=== PATIENT | female | born 1970 | race Caucasian/White ===

== ENCOUNTER 2019-12-02 07:17 | Emergency (ER) | payer BC ==
--- NOTE | 2019-12-02 07:42 | EDM.PDOC ---
ED HPI GENERAL MEDICAL PROBLEM - General Chief Complaint: Abdominal Pain Stated Complaint: UPPER ABD PAIN/SINCE NOON YESTERDAY Time Seen by Provider: 12/02/19 07:42 - History of Present Illness INITIAL COMMENTS - FREE TEXT/NARRATIVE: 49-year-old female presents the emergency room with abdominal pain. This pain started yesterday about midday. It is upper abdominal mostly epigastric and to a lesser degree left upper quadrant. The patient is a heavy drinker and user of alcohol she drinks a half to a full pint of vodka daily. She denies fevers or chills. She is some nausea and vomiting but cannot vomit anything up. She has a history of gastric bypass and is being treated for GERD with a PPI. Denies fevers or chills. She has undertreated depression. Upper Abdomen Pain Score (Numeric/FACES): 9 - Related Data Allergies Allergy/AdvReac Type Severity Reaction Status Date / Time acetaminophen [From Percocet] Allergy Itching Verified 12/02/19 07:37 morphine Allergy Chest Pain Verified 12/02/19 07:37 oxycodone HCl [From Percocet] Allergy Itching Verified 12/02/19 07:37 sumatriptan [From Imitrex] Allergy Chest Pain Verified 12/02/19 07:37 sumatriptan succinate Allergy Chest Pain Verified 12/02/19 07:37 [From Imitrex] Home Meds: Home Meds Omeprazole 40 mg PO DAILY 08/09/14 [History] Ondansetron [Zofran] 8 mg PO Q8H PRN 08/09/14 [History] amLODIPine [Norvasc] 10 mg PO DAILY 08/09/14 [History] Amphetamine/Dextroamphetamine [Adderall] 10 mg PO DAILY 12/02/19 [History] FLUoxetine [PROzac] 10 mg PO DAILY 12/02/19 [History] Metoprolol Succinate 50 mg PO DAILY 12/02/19 [History] buPROPion HCL [Wellbutrin Xl] 150 mg PO DAILY 12/02/19 [History] ED ROS GENERAL - Review of Systems Review Of Systems: See Below Constitutional: Reports: No Symptoms HEENT: Reports: No Symptoms Respiratory: Reports: No Symptoms Cardiovascular: Reports: No Symptoms GI/Abdominal: Reports: Abdominal Pain, Nausea, Vomiting. Denies: Constipation, Diarrhea : Reports: No Symptoms Musculoskeletal: Reports: No Symptoms Skin: Reports: No Symptoms Neurological: Reports: No Symptoms Psychiatric: Reports: Depression. Denies: Mood Lability, Suicidal Ideation Hematologic/Lymphatic: Reports: No Symptoms Immunologic: Reports: No Symptoms ED EXAM, GI/ABD - Physical Exam Exam: See Below Exam Limited By: No Limitations General Appearance: Anxious, Mild Distress (Is anxious but in moderate discomfort) Head: Atraumatic, Normocephalic Neck: Normal Inspection, Supple, Non-Tender, Full Range of Motion Respiratory/Chest: No Respiratory Distress, Lungs Clear, Normal Breath Sounds Cardiovascular: Regular Rate, Rhythm, No Edema, No Murmur GI/Abdominal Exam: Normal Bowel Sounds, Soft, Other (Nephric and midepigastric discomfort and left upper quadrant discomfort with palpation no rigidity rebound or guarding appreciated no other abdominal discomfort appreciated.) Back Exam: Normal Inspection. No: CVA Tenderness (L), CVA Tenderness (R) Extremities: Normal Inspection, No Pedal Edema Neurological: Alert, Oriented, Normal Cognition Psychiatric: Tearful Course - Vital Signs Last Recorded V/S: Last Vital Signs Temp 36.2 C 12/02/19 07:49 Pulse 85 12/02/19 07:49 Resp 20 12/02/19 07:49 BP 162/118 H 12/02/19 07:49 Pulse Ox 100 12/02/19 07:49 - Orders/Labs/Meds Orders: Active Orders 24 hr Category Date Time Status CORONAVIRUS COVID-19 RAPID [MOLEC] Stat Lab 12/02/19 13:27 Received UA RFX ALDEN AND CULT IF INDIC [URIN] Stat Lab 12/02/19 13:31 Ordered Sodium Chloride 0.9% [Saline Flush] Med 12/02/19 09:26 Active 10 ml FLUSH ONETIME PRN Medication Orders Sodium Chloride (Saline Flush) 10 ml FLUSH ONETIME PRN PRN Reason: IV FLUSH Last Admin: 12/02/19 10:33 Dose: 10 ml Documented by: [email or web address] Labs: Laboratory Tests 12/02/19 12/02/19 12/02/19 Range/Units 07:55 08:12 08:12 WBC 5.50 (3.98-10.04) K/mm3 RBC 4.55 (3.98-5.22) M/mm3 Hgb 14.1 (11.2-15.7) gm/dl Hct 44.6 (34.1-44.9) % MCV 98.0 H D (79.4-94.8) fl MCH 31.0 (25.6-32.2) pg MCHC 31.6 L (32.2-35.5) g/dl RDW Std Deviation 47.8 H (36.4-46.3) fL Plt Count 239 (182-369) K/mm3 MPV 10.8 (9.4-12.3) fl Neut % (Auto) 68.4 (34.0-71.1) % Lymph % (Auto) 19.8 (19.3-51.7) % Candler % (Auto) 8.5 (4.7-12.5) % Eos % (Auto) 2.9 (0.7-5.8) Baso % (Auto) 0.4 (0.1-1.2) % Neut # (Auto) 3.76 (1.56-6.13) K/mm3 Lymph # (Auto) 1.09 L (1.18-3.74) K/mm3 Candler # (Auto) 0.47 H (0.24-0.36) K/mm3 Eos # (Auto) 0.16 (0.04-0.36) K/mm3 Baso # (Auto) 0.02 (0.01-0.08) K/mm3 Sodium 137 (136-145) mEq/L Potassium 3.8 (3.5-5.1) mEq/L Chloride 100 (98-107) mEq/L Carbon Dioxide 27 (21-32) mEq/L Anion Gap 13.8 (5-15) BUN 15 (7-18) mg/dL Creatinine 1.2 H (0.55-1.02) mg/dL Est Cr Clr Drug Dosing 54.25 mL/min Estimated GFR (MDRD) 48 (>60) mL/min BUN/Creatinine Ratio 12.5 L (14-18) Glucose 95 (74-106) mg/dL Calcium 8.8 (8.5-10.1) mg/dL Total Bilirubin 1.1 H (0.2-1.0) mg/dL GGT 139 H (5-55) U/L AST 46 H (15-37) U/L ALT 39 (14-59) U/L Alkaline Phosphatase 124 H (46-116) U/L Total Protein 7.0 (6.4-8.2) g/dl Albumin 3.0 L (3.4-5.0) g/dl Globulin 4.0 gm/dL Albumin/Globulin Ratio 0.8 L (1-2) Lipase 5479 H (73-393) U/L HCG, Qual (NEGATIVE) 12/02/19 Range/Units 08:12 WBC (3.98-10.04) K/mm3 RBC (3.98-5.22) M/mm3 Hgb (11.2-15.7) gm/dl Hct (34.1-44.9) % MCV (79.4-94.8) fl MCH (25.6-32.2) pg MCHC (32.2-35.5) g/dl RDW Std Deviation (36.4-46.3) fL Plt Count (182-369) K/mm3 MPV (9.4-12.3) fl Neut % (Auto) (34.0-71.1) % Lymph % (Auto) (19.3-51.7) % Candler % (Auto) (4.7-12.5) % Eos % (Auto) (0.7-5.8) Baso % (Auto) (0.1-1.2) % Neut # (Auto) (1.56-6.13) K/mm3 Lymph # (Auto) (1.18-3.74) K/mm3 Candler # (Auto) (0.24-0.36) K/mm3 Eos # (Auto) (0.04-0.36) K/mm3 Baso # (Auto) (0.01-0.08) K/mm3 Sodium (136-145) mEq/L Potassium (3.5-5.1) mEq/L Chloride (98-107) mEq/L Carbon Dioxide (21-32) mEq/L Anion Gap (5-15) BUN (7-18) mg/dL Creatinine (0.55-1.02) mg/dL Est Cr Clr Drug Dosing mL/min Estimated GFR (MDRD) (>60) mL/min BUN/Creatinine Ratio (14-18) Glucose (74-106) mg/dL Calcium (8.5-10.1) mg/dL Total Bilirubin (0.2-1.0) mg/dL GGT (5-55) U/L AST (15-37) U/L ALT (14-59) U/L Alkaline Phosphatase (46-116) U/L Total Protein (6.4-8.2) g/dl Albumin (3.4-5.0) g/dl Globulin gm/dL Albumin/Globulin Ratio (1-2) Lipase (73-393) U/L HCG, Qual Negative (NEGATIVE) Meds: Medications Generic Name Dose Route Start Last Admin Trade Name Freq PRN Reason Stop Dose Admin Sodium Chloride 10 ml 12/02/19 09:26 12/02/19 10:33 Saline Flush FLUSH 10 ml ONETIME PRN Administration IV FLUSH Discontinued Medications Generic Name Dose Route Start Last Admin Trade Name Freq PRN Reason Stop Dose Admin Diatrizoate Meglum/Diatrizoate Sod 120 ml 12/02/19 09:26 12/02/19 10:33 Gastrografin 37% PO 12/02/19 09:27 45 ml ONETIME ONE Administration Diphenhydramine HCl 50 mg 12/02/19 10:10 12/02/19 10:22 Benadryl IVPUSH 12/02/19 10:11 50 mg ONETIME ONE Administration Famotidine 40 mg 12/02/19 10:10 12/02/19 10:21 Pepcid IVPUSH 12/02/19 10:11 40 mg ONETIME ONE Administration Fentanyl 50 mcg 12/02/19 08:06 12/02/19 08:20 Sublimaze IVPUSH 12/02/19 08:07 50 mcg ONETIME ONE Administration Fentanyl 50 mcg 12/02/19 08:50 12/02/19 08:56 Sublimaze IVPUSH 12/02/19 08:51 50 mcg ONETIME ONE Administration Fentanyl 50 mcg 12/02/19 09:14 12/02/19 09:37 Sublimaze IVPUSH 12/02/19 09:15 50 mcg ONETIME ONE Administration Fentanyl 50 mcg 12/02/19 12:20 12/02/19 12:38 Sublimaze IVPUSH 12/02/19 12:21 50 mcg ONETIME ONE Administration Lactated Ringer's 1,000 mls @ 999 mls/hr 12/02/19 08:05 12/02/19 08:18 Ringers, Lactated IV 12/02/19 09:05 999 mls/hr .BOLUS ONE Administration Lactated Ringer's 1,000 mls @ 999 mls/hr 12/02/19 12:23 12/02/19 12:38 Ringers, Lactated IV 12/02/19 13:23 999 mls/hr .BOLUS ONE Administration Iopamidol 100 ml 12/02/19 09:26 12/02/19 10:33 Isovue-300 (61%) IVPUSH 12/02/19 09:27 100 ml ONETIME ONE Administration Methylprednisolone Sodium Succinate 125 mg 12/02/19 10:11 12/02/19 10:19 Solu-Medrol IVPUSH 12/02/19 10:12 125 mg ONETIME ONE Administration Ondansetron HCl 4 mg 12/02/19 08:06 12/02/19 08:18 Zofran IVPUSH 12/02/19 08:07 4 mg ONETIME ONE Administration - Re-Assessments/Exams Free Text/Narrative Re-Assessment/Exam: 12/02/19 10:13 His lipase is very elevated. We ordered a CT. We will need to premedicate as she has had a contrast reaction in the past it sounds like a delayed hypersensitivity reaction 12 to 18 hours after receiving contrast 12/02/19 12:12 18 evaluation is most consistent with pancreatitis. And she has what looks to be a fatty liver small hiatal hernia is recognized there is a left kidney lesion measuring 2.7 cm this is not a cyst and difficult to exclude a renal mass it is recommended that an MRI with contrast be obtained to further evaluate this this could wait until the patient is in a less acute state. I have phoned 1 call at [facility] and left a message [facility] in [place] is not accepting any new patients. We have no beds available here 12/02/19 12:48 12/02/19 13:38 We were able to set up a lateral transfer to [facility] Dr. Fried is kind enough to accept the patient. Departure - Departure Time of Disposition: 12:25 Disposition: DC/Tfer to [facility] 02 Clinical Impression: Acute pancreatitis - Discharge Information Referrals: Caitlyn Newman RADIO TOWER TECHNICIAN [Primary Care Provider] - Forms: ED Department Discharge Sepsis Event Note (ED) - Focused Exam Vital Signs: Vital Signs Temp Pulse Resp BP Pulse Ox 12/02/19 07:49 36.2 C 85 20 162/118 H 100 - My Orders Last 24 Hours: My Active Orders 12/02/19 09:26 Sodium Chloride 0.9% [Saline Flush] 10 ml FLUSH ONETIME PRN 12/02/19 13:27 CORONAVIRUS COVID-19 RAPID [MOLEC] Stat 12/02/19 13:31 UA RFX ALDEN AND CULT IF INDIC [URIN] Stat - Assessment/Plan Last 24 Hours: My Active Orders 12/02/19 09:26 Sodium Chloride 0.9% [Saline Flush] 10 ml FLUSH ONETIME PRN 12/02/19 13:27 CORONAVIRUS COVID-19 RAPID [MOLEC] Stat 12/02/19 13:31 UA RFX ALDEN AND CULT IF INDIC [URIN] Stat
[2019-12-02] MEDS ORDERED: Lactated Ringers 1,000 ML IV ONE ×2 (08:05→12:23)
[2019-12-02] MEDS ORDERED: fentaNYL 100 MCG/2 ML SDV IVPUSH ONE ×4 (08:06→12:20)
[2019-12-02] MEDS ORDERED: Ondansetron 4 MG/2 ML SDV IVPUSH ONE (08:06)
[2019-12-02] MEDS ORDERED: Sodium Chloride 0.9% 10 ML Syringe FLUSH PRN (09:26)
[2019-12-02] MEDS ORDERED: Iopamidol 612 MG/ML 100 ML Bottle IVPUSH ONE (09:26)
[2019-12-02] MEDS ORDERED: Diatrizoate Meglumine/Diatrizoate Sodium 37% 120 ML Bottle PO ONE (09:26)
[2019-12-02] MEDS ORDERED: diphenhydrAMINE 50 MG/ML SDV IVPUSH ONE (10:10)
[2019-12-02] MEDS ORDERED: Famotidine 20 MG/2 ML SDV IVPUSH ONE (10:10)
[2019-12-02] MEDS ORDERED: methylPREDNISolone Sodium Succinate 125 MG/2 ML SDV IVPUSH ONE (10:11)
--- NOTE | 2019-12-02 10:57 | CT ---
CT abdomen and pelvis Technique: Multiple axial sections were obtained from above the dome of the diaphragm inferiorly through the pubic symphysis. Intravenous contrast and oral contrast has been given. Delayed images were obtained through the abdomen. Reconstructed coronal and sagittal images were also obtained. Comparison: No prior abdominal imaging is available. Findings: Inflammatory change is noted around the pancreas. Findings most likely represent pancreatitis. There is mild bowel wall thickening within portions of the duodenum most likely relating to the pancreatitis. Visualized lung bases show nothing acute. Fatty infiltration identified within the liver. Surgical clips are seen from previous cholecystectomy. Small hiatal hernia is noted. Spleen appears within normal limits. Symmetric contrast enhancement is noted of the kidneys. There is a lesion being seen within the left kidney measuring 2.7 cm in size. This is not a cyst and difficult to exclude an actual renal mass. Several small scattered cortical cysts are seen within both kidneys. Aorta shows no aneurysm. No retroperitoneal adenopathy or mesenteric abnormalities are seen. No pelvic mass or adenopathy is seen. No free fluid is identified. Bone window settings were reviewed which shows no acute osseous finding. Impression: 1. Findings as described above felt compatible with pancreatitis. 2. Possible left-sided renal mass. MRI with contrast recommended to further evaluate. This can be performed non-emergently. 3. Mild bowel wall thickening within portions of the duodenal sweep likely relating to the pancreatitis. 4. Other findings believed to be incidental as noted above. Diagnostic code #3 This report was dictated in MDT
[2019-12-02 13:46] VITALS: BP 152/99; PULSE 67
[2019-12-02] MEDS ORDERED: Lactated Ringers 1,000 ML ONE (13:49)
[2019-12-02] MEDS ORDERED: Lactated Ringers 1,000 ML IV SCH (14:00)
== END 2019-12-02 14:15 ==
LOC: JD.ED 07:17
DX: K85.90 Acute pancreatitis without necrosis or infection, unspecified (principal); F32.9 Major depressive disorder, single episode, unspecified; Z88.5 Allergy status to narcotic agent; Z88.6 Allergy status to analgesic agent; Z88.8 Allergy status to other drugs, medicaments and biological substances; Z20.828 Contact with and (suspected) exposure to other viral communicable diseases
CPT/HCPCS: 36415; 74177; 80053; 81001; 82977; 83690; 84703; 85025; 87086; 87088; 87186; 87635; 96361; 96374; 96375; 96376; 99285; J1200; J2405; J2930; J3010; J3490; J7120; Q9963; Q9967; U0002

== ENCOUNTER 2020-09-17 03:59 | Emergency (ER) | payer BC ==
[2020-09-17 04:17] VITALS: BP 146/83; PULSE 82
--- NOTE | 2020-09-17 04:37 | EDM.PDOC ---
ED HPI GENERAL MEDICAL PROBLEM - General Chief Complaint: Genitourinary Problem Stated Complaint: POSS UTI Time Seen by Provider: 09/17/20 04:14 Source of Information: Reports: Patient History Limitations: Reports: No Limitations - History of Present Illness INITIAL COMMENTS - FREE TEXT/NARRATIVE: Mrs. De La Fuente is a 49-year-old woman who now presents the ED stating that she developed burning dysuria and urinary frequency this past Saturday or , 09/14/2020 or 09/15/2020. She started taking Azo on . She states that the dysuria disappeared last night, being replaced by generalized abdominal pain. She developed nausea with a single episode of vomiting last night, and bilateral flank pain this morning. No recent fever or chills. The patient states that she has had similar symptoms in the past, with UTIs. She states that she has had numerous UTIs in the past. She states that she has taken a total of 8 tablets of Azo so far. Here in the ED, the patient's initial BP is found to be mildly elevated 146/83, otherwise, she is hemodynamically stable, afebrile, saturating 99% on room air. She appears to be somewhat uncomfortable, but in no acute distress. Prior to Saturday, the patient denies having a recent fever, chills, sore throat, ear pain, nasal or sinus congestion, cough, dyspnea, chest pain, palpitations, nausea, vomiting, constipation, diarrhea, abdominal pain, urinary symptoms, recent weight gain or weight loss, recent bloody bowel movements or black bowel movements, recent joint aches, headaches, or rashes. The patient's PCP is Caitlyn Newman NP. - Related Data Allergies Allergy/AdvReac Type Severity Reaction Status Date / Time acetaminophen [From Percocet] Allergy Itching Verified 12/02/19 07:37 morphine Allergy Chest Pain Verified 12/02/19 07:37 oxycodone HCl [From Percocet] Allergy Itching Verified 12/02/19 07:37 sumatriptan [From Imitrex] Allergy Chest Pain Verified 12/02/19 07:37 sumatriptan succinate Allergy Chest Pain Verified 12/02/19 07:37 [From Imitrex] Home Meds: Home Meds Omeprazole 40 mg PO DAILY 08/09/14 [History] Ondansetron [Zofran] 8 mg PO Q8H PRN 08/09/14 [History] amLODIPine [Norvasc] 10 mg PO DAILY 08/09/14 [History] Amphetamine/Dextroamphetamine [Adderall] 10 mg PO DAILY 12/02/19 [History] FLUoxetine [PROzac] 10 mg PO DAILY 12/02/19 [History] Metoprolol Succinate 50 mg PO DAILY 12/02/19 [History] buPROPion HCL [Wellbutrin Xl] 150 mg PO DAILY 12/02/19 [History] Cyclobenzaprine HCl 10 mg PO 12/15/19 [History] Fluticasone Propionate [Flovent] 1 puff IH BID 12/15/19 [History] Levofloxacin 1 tab PO QAM #6 tablet 09/17/20 [Rx] Ondansetron [Zofran ODT] 1 tab PO Q8H PRN #10 tab.dis 09/17/20 [Rx] Past Medical History HEENT History: Reports: Impaired Vision Cardiovascular History: Reports: Hypertension Gastrointestinal History: Reports: GERD, PUD Genitourinary History: Reports: Renal Calculus Psychiatric History: Reports: ADHD, Addiction, Anxiety, Depression 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) - Infectious Disease History Infectious Disease History: Reports: Chicken Pox, Novel Coronavirus (Dx'd late Jan 2020) - Past Surgical History HEENT Surgical History: Reports: Adenoidectomy, Oral Surgery (dental extractions), Tonsillectomy GI Surgical History: Reports: Appendectomy, Bariatric Procedure (gastric bypass 1998), Cholecystectomy (2002) Female Surgical History: Reports: Cervical Conization (laser), Salpingo- Oophorectomy (left) Musculoskeletal Surgical History: Reports: Arthroscopic Knee (left) Oncologic Surgical History: Reports: Other (See Below) (Ablative cryotherapy RCC) Social & Family History - Tobacco Use Years of Tobacco use: 34 Packs/Tins Daily: 0.1 Packs/Tins Daily Comment: Down from 1 ppd Tobacco Use Comment: Started smoking 1985 - Caffeine Use Caffeine Use: Reports: Tea - Alcohol Use Alcohol Use History: Yes Alcohol Use Frequency: Socially (occasionally to excess) - Recreational Drug Use Recreational Drug Use: Yes Drug Use in Last 12 Months: Yes Recreational Drug Type: Reports: Marijuana/Hashish (smokes daily) - Living Situation & Occupation Living situation: Reports: , with Spouse, with Family (2 kids) 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 ED EXAM, RENAL/ - Physical Exam Exam: See Below Exam Limited By: No Limitations General Appearance: Alert, WD/WN, No Apparent Distress Eye Exam: Bilateral Eye: EOMI, Normal Inspection Ears: Normal External Exam, Hearing Grossly Normal Nose: Normal Inspection Throat/Mouth: Normal Inspection, Normal Lips, Normal Voice, No Airway Compromise Head: Atraumatic, Normocephalic Neck: Normal Inspection, Full Range of Motion Respiratory/Chest: No Respiratory Distress, Lungs Clear, Normal Breath Sounds, No Accessory Muscle Use Cardiovascular: Normal Peripheral Pulses, Regular Rate, Rhythm, No Edema, No Gallop, No JVD, No Murmur, No Rub GI/Abdominal: Normal Bowel Sounds, Soft, No Organomegaly, No Distention, No Abnormal Bruit, No Mass, Tender (Mild, generalized, non-focal) Back Exam: Normal Inspection, Full Range of Motion, CVA Tenderness (L) (considerable), CVA Tenderness (R) (considerable) Extremities: Normal Inspection, Normal Range of Motion, No Pedal Edema, Normal Capillary Refill Neurological: Alert, Oriented, Normal Cognition, No Motor/Sensory Deficits Psychiatric: Normal Affect Skin Exam: Warm, Dry, Intact, Normal Color, No Rash Course - Vital Signs Last Recorded V/S: Last Vital Signs Temp 36.4 C 09/17/20 04:14 Pulse 82 09/17/20 04:14 Resp 16 09/17/20 04:14 BP 146/83 H 09/17/20 04:14 Pulse Ox 99 09/17/20 04:14 - Orders/Labs/Meds Orders: Active Orders 24 hr Category Date Time Status CULTURE URINE [MREF] Stat Lab 09/17/20 04:54 Ordered Labs: Laboratory Tests 09/17/20 09/17/20 09/17/20 Range/Units 04:11 04:11 04:33 WBC 5.22 (3.98-10.04) K/mm3 RBC 4.30 (3.98-5.22) M/mm3 Hgb 13.2 (11.2-15.7) gm/dl Hct 41.3 (34.1-44.9) % MCV 96.0 H (79.4-94.8) fl MCH 30.7 (25.6-32.2) pg MCHC 32.0 L (32.2-35.5) g/dl RDW Std Deviation 45.6 (36.4-46.3) fL Plt Count 215 (182-369) K/mm3 MPV 9.6 (9.4-12.3) fl Neutrophils % (Manual) 60 (40-60) % Band Neutrophils % 0 (0-10) % Lymphocytes % (Manual) 30 (20-40) % Atypical Lymphs % 0 % Monocytes % (Manual) 5 (2-10) % Eosinophils % (Manual) 4 (0.7-5.8) % Basophils % (Manual) 1 (0.1-1.2) Platelet Estimate Adequate RBC Morph Comment Normal Sodium (136-145) mEq/L Potassium (3.5-5.1) mEq/L Chloride (98-107) mEq/L Carbon Dioxide (21-32) mEq/L Anion Gap (5-15) BUN (7-18) mg/dL Creatinine (0.55-1.02) mg/dL Est Cr Clr Drug Dosing Estimated GFR (MDRD) (>60) mL/min BUN/Creatinine Ratio (14-18) Glucose (70-99) mg/dL Calcium (8.5-10.1) mg/dL Total Bilirubin (0.2-1.0) mg/dL AST (15-37) U/L ALT (14-59) U/L Alkaline Phosphatase (46-116) U/L C-Reactive Protein (<1.0) mg/dL Total Protein (6.4-8.2) g/dl Albumin (3.4-5.0) g/dl Globulin gm/dL Albumin/Globulin Ratio (1-2) Urine Color [place] H (Yellow) Urine Appearance Cloudy H (Clear) Urine pH 6.0 (5.0-8.0) Ur Specific [place] 1.025 (1.005-1.030) Urine Protein 3+ H (Negative) Urine Glucose (UA) Trace H (Negative) Urine Ketones Negative (Negative) Urine Occult Blood 2+ H (Negative) Urine Nitrite Positive H (Negative) Urine Bilirubin Negative (Negative) Urine Urobilinogen 4.0 H (0.2-1.0) Ur Leukocyte Esterase 3+ H (Negative) Urine RBC 5-10 H (0-5) /hpf Urine WBC >100 H (0-5) /hpf Urine WBC Clumps Moderate (NOT SEEN) /hpf Ur Squamous Epith Cells 0-5 (0-5) /hpf Urine Bacteria Moderate H (FEW) /hpf Urine Mucus Not seen (FEW) /hpf Urine HCG, Qual Negative (NEGATIVE) 09/17/20 Range/Units 04:33 WBC (3.98-10.04) K/mm3 RBC (3.98-5.22) M/mm3 Hgb (11.2-15.7) gm/dl Hct (34.1-44.9) % MCV (79.4-94.8) fl MCH (25.6-32.2) pg MCHC (32.2-35.5) g/dl RDW Std Deviation (36.4-46.3) fL Plt Count (182-369) K/mm3 MPV (9.4-12.3) fl Neutrophils % (Manual) (40-60) % Band Neutrophils % (0-10) % Lymphocytes % (Manual) (20-40) % Atypical Lymphs % % Monocytes % (Manual) (2-10) % Eosinophils % (Manual) (0.7-5.8) % Basophils % (Manual) (0.1-1.2) Platelet Estimate RBC Morph Comment Sodium 139 (136-145) mEq/L Potassium 3.8 (3.5-5.1) mEq/L Chloride 104 (98-107) mEq/L Carbon Dioxide 27 (21-32) mEq/L Anion Gap 11.8 (5-15) BUN 17 (7-18) mg/dL Creatinine 1.1 H (0.55-1.02) mg/dL Est Cr Clr Drug Dosing TNP Estimated GFR (MDRD) 53 (>60) mL/min BUN/Creatinine Ratio 15.5 (14-18) Glucose 81 (70-99) mg/dL Calcium 8.8 (8.5-10.1) mg/dL Total Bilirubin 0.3 (0.2-1.0) mg/dL AST 37 (15-37) U/L ALT 26 (14-59) U/L Alkaline Phosphatase 107 (46-116) U/L C-Reactive Protein 0.8 (<1.0) mg/dL Total Protein 6.9 (6.4-8.2) g/dl Albumin 3.0 L (3.4-5.0) g/dl Globulin 3.9 gm/dL Albumin/Globulin Ratio 0.8 L (1-2) Urine Color (Yellow) Urine Appearance (Clear) Urine pH (5.0-8.0) Ur Specific [place] (1.005-1.030) Urine Protein (Negative) Urine Glucose (UA) (Negative) Urine Ketones (Negative) Urine Occult Blood (Negative) Urine Nitrite (Negative) Urine Bilirubin (Negative) Urine Urobilinogen (0.2-1.0) Ur Leukocyte Esterase (Negative) Urine RBC (0-5) /hpf Urine WBC (0-5) /hpf Urine WBC Clumps (NOT SEEN) /hpf Ur Squamous Epith Cells (0-5) /hpf Urine Bacteria (FEW) /hpf Urine Mucus (FEW) /hpf Urine HCG, Qual (NEGATIVE) - Re-Assessments/Exams Free Text/Narrative Re-Assessment/Exam: 09/17/20 04:29 As above, the patient developed burning dysuria and urinary frequency on Saturday or , then lost the dysuria, but developed generalized abdominal and bilateral flank pain, along with nausea and vomiting last night/early this morning. She has been taking Azo since . No recent fever, and she is afebrile here in the ED. On examination, she complains of generalized abdominal tenderness, and she has significant bilateral CVA tenderness. I have ordered a work-up that includes several blood tests, a urinalysis, and a urine test. 09/17/20 05:26 The patient's CBC is unremarkable. Her CMP is remarkable for a Cr slightly elevated at 1.1, but with a BUN normal at 17, and the remainder of her CMP being unremarkable. Her CRP is within normal limits at 0.8. Her urinalysis is remarkable for orange/cloudy appearance, 2+ occult blood with 5-10 RBCs, 3+ leukocyte esterase with >100 WBCs, nitrate positive with moderate bacteria, and 0-5 squamous epithelial cells. Her urine test is negative. Based on the above, I have ordered a urine culture. 09/17/20 05:37 Test results discussed with the patient. Although she does not have a fever, leukocytosis, or elevated CRP, she has been vomiting, and has bilateral CVA tenderness, therefore I think it would be appropriate to treat her for pyelonephritis. I will therefore start her on levofloxacin. I will also order 2 tablets of [place] and some Zofran, however, she states that she drove herself here, therefore her will have to come to pick her up. I will submit a prescription for Levaquin for the patient to complete a 7-day course. She should stay adequately hydrated. I would like her to follow-up with Alia Newman NP, on Saturday, to check on her urine culture results, to make sure that what ever grows is a susceptible to levofloxacin. Lastly, I explained to the patient that, in the future, she should not take Azo unless she is also taking an antibiotic to treat a UTI. Departure - Departure Time of Disposition: 05:41 Disposition: Home, Self-Care 01 Condition: Good Clinical Impression: Pyelonephritis - Discharge Information *PRESCRIPTION DRUG MONITORING PROGRAM REVIEWED*: Not Applicable *COPY OF PRESCRIPTION DRUG MONITORING REPORT IN PATIENT JEN: Not Applicable Referrals: Caitlyn Newman NP [Nurse Practitioner] - Forms: ED Department Discharge Additional Instructions: You were seen in the emergency room after developing burning urination and the need to urinate often on Saturday or , followed by nausea, vomiting, and flank pain on both sides last night/this morning. Work-up in the ER included several blood tests, urinalysis, and a urine test. Your urinalysis confirms that you have a urinary tract infection. The remainder of your work-up was unremarkable. Based on your history, physical exam, and ER tests, you appear to have early pyelonephritis - a urinary tract infection that has gone to your kidneys. You have been started on the antibiotic levofloxacin (Levaquin), and a prescription for levofloxacin has been sent to the [facility], located at [address] [place] [address]. The pharmacy will be open between 8 AM and 1 PM this afternoon. Take 1 tablet of levofloxacin every morning, starting tomorrow morning, 09/18/2020, as prescribed. Finish the entire prescription unless told otherwise by your PCP. A prescription for the antinausea medicine Zofran has also been sent to the [facility]. You may dissolve 1 tablet of Zofran on your tongue up to every 8 hours, as needed for nausea/vomiting. Stay adequately hydrated. It does not really matter what type of fluid you drink. You may take [id number] ibuprofen, 3 tablets (600 mg) up to every 8 hours, with food, as needed for discomfort. Do not take any more Azo. In the future, do not take more than 6 tablets of Azo, and never take Azo unless you are also taking an antibiotic to treat a urinary tract infection. Please follow-up with your PCP, Caitlyn Newman NP, this coming 09/19/2020, to check on the urine culture results, to make sure that you are on the correct antibiotic. If any other problems, please do not hesitate to return to the ER. Sepsis Event Note (ED) - Evaluation Sepsis Screening Result: No Definite Risk - Focused Exam Vital Signs: Vital Signs Temp Pulse Resp BP Pulse Ox 09/17/20 04:14 36.4 C 82 16 146/83 H 99 - My Orders Last 24 Hours: My Active Orders 09/17/20 04:54 CULTURE URINE [MREF] Stat - Assessment/Plan Last 24 Hours: My Active Orders 09/17/20 04:54 CULTURE URINE [MREF] Stat
[2020-09-17] MEDS ORDERED: Levofloxacin 750 MG Tab PO STA (05:30)
[2020-09-17] MEDS ORDERED: Acetaminophen/HYDROcodone 325-5 MG Tab PO ONE (05:37)
[2020-09-17] MEDS ORDERED: Ondansetron 4 MG Tab.DIS PO ONE (05:39)
== END 2020-09-17 06:09 | disposition home or self-care (01) ==
LOC: JD.ED 03:59
DX: N12 Tubulo-interstitial nephritis, not specified as acute or chronic (principal); I10 Essential (primary) hypertension; K21.9 Gastro-esophageal reflux disease without esophagitis; Z88.6 Allergy status to analgesic agent; Z88.5 Allergy status to narcotic agent; Z88.8 Allergy status to other drugs, medicaments and biological substances; Z79.899 Other long term (current) drug therapy; Z72.0 Tobacco use
CPT/HCPCS: 36415; 80053; 81001; 81025; 85007; 85027; 86140; 87086; 99283; A9270

== ENCOUNTER 2021-01-13 07:12 | Emergency (ER) | payer BC ==
[2021-01-13 08:15] VITALS: BP 142/115; PULSE 123
[2021-01-13] MEDS ORDERED: Ondansetron 4 MG/2 ML SDV IVPUSH ONE (08:31)
[2021-01-13] MEDS ORDERED: Lactated Ringers 1,000 ML IV SCH (08:45)
--- NOTE | 2021-01-13 09:03 | EDM.PDOC ---
ED HPI GENERAL MEDICAL PROBLEM - General Chief Complaint: Abdominal Pain Stated Complaint: ABD PAIN Time Seen by Provider: 01/13/21 08:57 - History of Present Illness INITIAL COMMENTS - FREE TEXT/NARRATIVE: 50-year-old female returns to emergency room with upper abdominal pain. This pain started early this week the patient has been following up with her primary care provider and has been attempting to stay out of the hospital. The patient has a history of pancreatitis. And this is acting very much like it did in the past. The patient has a history of contrast-induced reaction sounds like a delayed hypersensitivity reaction. Patient is a heavy drinker her last drink by history was on Saturday. Patient has been drinking heavily for several months prior to this. Patient denies any fevers or chills she is has some nausea no diarrhea no black or tarry stools. No blood in her stool. The patient's regular physician has her on hydrocodone 08/01/2024 she uses 1 or 2 every 4-6 hours as needed for pain and this worked pretty good up until the pain that brought her in this morning. Abdomen Pain Score (Numeric/FACES): 10 - Related Data Allergies Allergy/AdvReac Type Severity Reaction Status Date / Time morphine Allergy Severe Chest Pain Verified 01/13/21 08:15 oxycodone HCl [From Percocet] Allergy Severe Itching Verified 01/13/21 08:15 sumatriptan [From Imitrex] Allergy Severe Chest Pain Verified 01/13/21 08:15 sumatriptan succinate Allergy Severe Chest Pain Verified 01/13/21 08:15 [From Imitrex] Home Meds: Home Meds Omeprazole 40 mg PO DAILY 08/09/14 [History] Ondansetron [Zofran] 8 mg PO Q8H PRN 08/09/14 [History] amLODIPine [Norvasc] 10 mg PO DAILY 08/09/14 [History] Amphetamine/Dextroamphetamine [Adderall] 10 mg PO DAILY 12/02/19 [History] FLUoxetine [PROzac] 10 mg PO DAILY 12/02/19 [History] Metoprolol Succinate 50 mg PO DAILY 12/02/19 [History] buPROPion HCL [Wellbutrin Xl] 150 mg PO DAILY 12/02/19 [History] Cyclobenzaprine HCl 10 mg PO 12/15/19 [History] Fluticasone Propionate [Flovent] 1 puff IH BID 12/15/19 [History] Levofloxacin 1 tab PO QAM #6 tablet 09/17/20 [Rx] Ondansetron [Zofran ODT] 1 tab PO Q8H PRN #10 tab.dis 09/17/20 [Rx] Hydrocodone/Acetaminophen [HYDROcodone-Acetaminophen 7.5-325 MG] 1 - 2 each PO ASDIRECTED PRN #12 tablet 01/13/21 [Rx] Past Medical History HEENT History: Reports: Impaired Vision Cardiovascular History: Reports: Hypertension Respiratory History: Reports: None Gastrointestinal History: Reports: GERD, Pancreatitis, PUD Genitourinary History: Reports: Renal Calculus [employer]LEWARE DEVELOPER History: Reports: , Other (See Below) Other MIDDLEWARE DEVELOPER History: perimenapausal Musculoskeletal History: Reports: Arthritis Neurological History: Reports: Migraines Psychiatric History: Reports: ADHD, Addiction, Anxiety, Depression Hematologic History: Reports: None Immunologic History: Reports: None Oncologic (Cancer) History: Reports: Renal Dermatologic History: Reports: None - Infectious Disease History Infectious Disease History: Reports: Chicken Pox, Novel Coronavirus - Past Surgical History Head Surgeries/Procedures: Reports: None HEENT Surgical History: Reports: Adenoidectomy, Oral Surgery, Tonsillectomy GI Surgical History: Reports: Appendectomy, Bariatric Procedure, Cholecystectomy Female Surgical History: Reports: Cervical Conization, Salpingo-Oophorectomy Musculoskeletal Surgical History: Reports: Arthroscopic Knee Oncologic Surgical History: Reports: Other (See Below) Social & Family History - Family History Cardiac: Reports: Heart Failure Respiratory: Reports: COPD GI: Reports: None : Reports: Renal Calculus OBGYN: Reports: None Musculoskeletal: Reports: None Psychiatric: Reports: None Oncologic: Reports: Breast - Tobacco Use Tobacco Use Status *Q: Unknown Ever Used Tobacco - Caffeine Use Caffeine Use: Reports: Tea - Recreational Drug Use Recreational Drug Use: No - Living Situation & Occupation Living situation: Reports: , with Spouse, with Family (2 kids) Occupation: Employed (front office agent) ED ROS GENERAL - Review of Systems Review Of Systems: See Below Constitutional: Reports: No Symptoms HEENT: Reports: No Symptoms Respiratory: Reports: No Symptoms Cardiovascular: Reports: No Symptoms GI/Abdominal: Reports: Abdominal Pain, Nausea. Denies: Black Stool, Bloody Stool, Constipation, Diarrhea : Reports: No Symptoms Musculoskeletal: Reports: No Symptoms Skin: Reports: No Symptoms Neurological: Reports: No Symptoms Psychiatric: Reports: Anxiety ED EXAM, GENERAL - Physical Exam Exam: See Below Exam Limited By: No Limitations General Appearance: Alert, Moderate Distress (This seems to be due to the pain) Head: Atraumatic, Normocephalic Neck: Normal Inspection, Supple, Non-Tender, Full Range of Motion. No: Lymphadenopathy (L), Lymphadenopathy (R) Respiratory/Chest: No Respiratory Distress, Lungs Clear Cardiovascular: Regular Rate, Rhythm, No Edema, No Murmur GI/Abdominal: Normal Bowel Sounds, Soft, Tender (Heart epigastric discomfort.) Back Exam: Normal Inspection. No: CVA Tenderness (L), CVA Tenderness (R) Extremities: Normal Inspection, No Pedal Edema Neurological: Alert, Oriented, Normal Cognition Skin Exam: Warm, Dry, Intact Course - Vital Signs Last Recorded V/S: Last Vital Signs Temp 36.0 C L 01/13/21 08:10 Pulse 123 H 01/13/21 08:10 Resp 18 01/13/21 08:10 BP 142/115 H 01/13/21 08:10 Pulse Ox 100 01/13/21 08:10 - Orders/Labs/Meds Orders: Active Orders 24 hr Category Date Time Status Lactated Ringers [Ringers, Lactated] 1,000 ml Med 01/13/21 08:45 Active IV ASDIRECTED Sodium Chloride 0.9% [Saline Flush] Med 01/13/21 11:23 Active 10 ml FLUSH ONETIME PRN Medication Orders Lactated Ringer's (Ringers, Lactated) 1,000 mls @ 150 mls/hr IV ASDIRECTED ITA Last Admin: 01/13/21 08:41 Dose: 150 mls/hr Documented by: LORI Sodium Chloride (Sodium Chloride 0.9% 10 Ml Syringe) 10 ml FLUSH ONETIME PRN PRN Reason: Keep Vein Open Last Admin: 01/13/21 11:27 Dose: 10 ml Documented by: BRAYAN Labs: Laboratory Tests 01/13/21 01/13/21 01/13/21 Range/Units 08:25 08:25 08:25 WBC 7.04 (3.98-10.04) K/mm3 RBC 4.02 (3.98-5.22) M/mm3 Hgb 12.7 (11.2-15.7) gm/dl Hct 38.9 (34.1-44.9) % MCV 96.8 H (79.4-94.8) fl MCH 31.6 (25.6-32.2) pg MCHC 32.6 (32.2-35.5) g/dl RDW Std Deviation 45.1 (36.4-46.3) fL Plt Count 177 L (182-369) K/mm3 MPV 9.7 (9.4-12.3) fl Neut % (Auto) 75.2 H (34.0-71.1) % Lymph % (Auto) 11.4 L (19.3-51.7) % [place] % (Auto) 10.8 (4.7-12.5) % Eos % (Auto) 2.3 (0.7-5.8) Baso % (Auto) 0.3 (0.1-1.2) % Neut # (Auto) 5.30 (1.56-6.13) K/mm3 Lymph # (Auto) 0.80 L (1.18-3.74) K/mm3 [place] # (Auto) 0.76 H (0.24-0.36) K/mm3 Eos # (Auto) 0.16 (0.04-0.36) K/mm3 Baso # (Auto) 0.02 (0.01-0.08) K/mm3 Sodium 136 (136-145) mEq/L Potassium 3.1 L (3.5-5.1) mEq/L Chloride 100 (98-107) mEq/L Carbon Dioxide 22 (21-32) mEq/L Anion Gap 17.1 H (5-15) BUN 15 (7-18) mg/dL Creatinine 1.0 (0.55-1.02) mg/dL Est Cr Clr Drug Dosing 64.41 mL/min Estimated GFR (MDRD) 59 (>60) mL/min BUN/Creatinine Ratio 15.0 (14-18) Glucose 73 (70-99) mg/dL Calcium 8.7 (8.5-10.1) mg/dL Magnesium (1.8-2.4) mg/dL Total Bilirubin 0.9 (0.2-1.0) mg/dL AST 96 H (15-37) U/L ALT 62 H (14-59) U/L Alkaline Phosphatase 150 H (46-116) U/L C-Reactive Protein 20.1 H* (<1.0) mg/dL Total Protein 6.6 (6.4-8.2) g/dl Albumin 2.8 L (3.4-5.0) g/dl Globulin 3.8 gm/dL Albumin/Globulin Ratio 0.7 L (1-2) Lipase 1128 H (73-393) U/L Ethyl Alcohol 0.00 (0.00) gm% 01/13/21 Range/Units 08:25 WBC (3.98-10.04) K/mm3 RBC (3.98-5.22) M/mm3 Hgb (11.2-15.7) gm/dl Hct (34.1-44.9) % MCV (79.4-94.8) fl MCH (25.6-32.2) pg MCHC (32.2-35.5) g/dl RDW Std Deviation (36.4-46.3) fL Plt Count (182-369) K/mm3 MPV (9.4-12.3) fl Neut % (Auto) (34.0-71.1) % Lymph % (Auto) (19.3-51.7) % [place] % (Auto) (4.7-12.5) % Eos % (Auto) (0.7-5.8) Baso % (Auto) (0.1-1.2) % Neut # (Auto) (1.56-6.13) K/mm3 Lymph # (Auto) (1.18-3.74) K/mm3 [place] # (Auto) (0.24-0.36) K/mm3 Eos # (Auto) (0.04-0.36) K/mm3 Baso # (Auto) (0.01-0.08) K/mm3 Sodium (136-145) mEq/L Potassium (3.5-5.1) mEq/L Chloride (98-107) mEq/L Carbon Dioxide (21-32) mEq/L Anion Gap (5-15) BUN (7-18) mg/dL Creatinine (0.55-1.02) mg/dL Est Cr Clr Drug Dosing mL/min Estimated GFR (MDRD) (>60) mL/min BUN/Creatinine Ratio (14-18) Glucose (70-99) mg/dL Calcium (8.5-10.1) mg/dL Magnesium 1.6 L (1.8-2.4) mg/dL Total Bilirubin (0.2-1.0) mg/dL AST (15-37) U/L ALT (14-59) U/L Alkaline Phosphatase (46-116) U/L C-Reactive Protein (<1.0) mg/dL Total Protein (6.4-8.2) g/dl Albumin (3.4-5.0) g/dl Globulin gm/dL Albumin/Globulin Ratio (1-2) Lipase (73-393) U/L Ethyl Alcohol (0.00) gm% Meds: Medications Generic Name Dose Route Start Last Admin Trade Name Freq PRN Reason Stop Dose Admin Lactated Ringer's 1,000 mls @ 150 mls/hr 01/13/21 08:45 01/13/21 08:41 Ringers, Lactated IV 150 mls/hr ASDIRECTED ITA Administration Sodium Chloride 10 ml 01/13/21 11:23 01/13/21 11:27 Sodium Chloride 0.9% 10 Ml Syringe FLUSH 10 ml ONETIME PRN Administration Keep Vein Open Discontinued Medications Generic Name Dose Route Start Last Admin Trade Name Frejuan david PRN Reason Stop Dose Admin Diatrizoate Meglum/Diatrizoate Sod 45 ml 01/13/21 11:23 01/13/21 11:28 Diatrizoate Meglumine/Diatrizoate Sodium 37% 120 Ml Bottle PO 01/13/21 11:24 45 ml ONETIME ONE Administration Diphenhydramine HCl 50 mg 01/13/21 09:12 01/13/21 09:32 Diphenhydramine 50 Mg/Ml Sdv IVPUSH 01/13/21 09:13 50 mg ONETIME ONE Administration Famotidine 40 mg 01/13/21 09:12 01/13/21 09:35 Famotidine 20 Mg/2 Ml Sdv IVPUSH 01/13/21 09:13 40 mg ONETIME ONE Administration Hydromorphone HCl 0.5 mg 01/13/21 09:12 01/13/21 09:33 Hydromorphone 0.5 Mg/0.5 Ml Syringe IVPUSH 01/13/21 09:13 0.5 mg ONETIME ONE Administration Iopamidol 100 ml 01/13/21 11:23 01/13/21 11:27 Iopamidol 612 Mg/Ml 100 Ml Bottle IVPUSH 01/13/21 11:24 100 ml ONETIME ONE Administration Methylprednisolone Sodium Succinate 125 mg 01/13/21 09:14 01/13/21 09:34 Methylprednisolone Sodium Succinate 125 Mg/2 Ml Sdv IVPUSH 01/13/21 09:15 125 mg ONETIME ONE Administration Ondansetron HCl 4 mg 01/13/21 08:31 01/13/21 08:41 Ondansetron 4 Mg/2 Ml Sdv IVPUSH 01/13/21 08:32 4 mg ONETIME ONE Administration - Re-Assessments/Exams Free Text/Narrative Re-Assessment/Exam: 01/13/21 11:35 Patient is doing better at this time awaiting CT report I see some inflammatory changes around the pancreas 01/13/21 13:39 Radiology confirms some inflammatory changes around the pancreas consistent with pancreatitis. The patient is doing much better at this time she did receive 0.5 mg of Dilaudid shortly after arrival here. Because of the pandemic we have no hospital beds available and there is no regional beds available. I did discuss this with the patient and she is willing to try this at home. I will give her prescription for [place] 7.5/325 #12 to use in the evenings. And the patient understands not to take this in combination with her 5/325's. Departure - Departure Time of Disposition: 13:41 Disposition: Home, Self-Care 01 Clinical Impression: Pancreatitis, acute - Discharge Information Referrals: Caitlyn Newman NP [Primary Care Provider] - Forms: ED Department Discharge Additional Instructions: Return to the emergency room with any questions problems or worsening symptoms. Strict clear liquid diet until advised to advance as tolerated. Follow-up with your regular healthcare provider on Saturday. Continue using your hydrocodone/acetaminophen as needed for pain for nighttime use have given you prescription for something stronger. Do not take this in combination with the other prescription of hydrocodone acetaminophen. Continue using the nausea medication as needed. Sepsis Event Note (ED) - Evaluation Sepsis Screening Result: No Definite Risk - Focused Exam Vital Signs: Vital Signs Temp Pulse Resp BP Pulse Ox 01/13/21 08:10 36.0 C L 123 H 18 142/115 H 100 - My Orders Last 24 Hours: My Active Orders 01/13/21 08:45 Lactated Ringers [Ringers, Lactated] 1,000 ml IV ASDIRECTED 01/13/21 11:23 Sodium Chloride 0.9% [Saline Flush] 10 ml FLUSH ONETIME PRN - Assessment/Plan Last 24 Hours: My Active Orders 01/13/21 08:45 Lactated Ringers [Ringers, Lactated] 1,000 ml IV ASDIRECTED 01/13/21 11:23 Sodium Chloride 0.9% [Saline Flush] 10 ml FLUSH ONETIME PRN
[2021-01-13] MEDS ORDERED: Famotidine 20 MG/2 ML SDV IVPUSH ONE (09:12)
[2021-01-13] MEDS ORDERED: HYDROmorphone 0.5 MG/0.5 ML Syringe IVPUSH ONE (09:12)
[2021-01-13] MEDS ORDERED: diphenhydrAMINE 50 MG/ML SDV IVPUSH ONE (09:12)
[2021-01-13] MEDS ORDERED: methylPREDNISolone Sodium Succinate 125 MG/2 ML SDV IVPUSH ONE (09:14)
[2021-01-13] MEDS ORDERED: Sodium Chloride 0.9% 10 ML Syringe FLUSH PRN (11:23)
[2021-01-13] MEDS ORDERED: Iopamidol 612 MG/ML 100 ML Bottle IVPUSH ONE (11:23)
[2021-01-13] MEDS ORDERED: Diatrizoate Meglumine/Diatrizoate Sodium 37% 120 ML Bottle PO ONE (11:23)
--- NOTE | 2021-01-13 12:00 | CT ---
CT abdomen and pelvis Technique: Multiple axial sections were obtained from above the dome of the diaphragm inferiorly through the pubic symphysis. Intravenous and oral contrast were utilized. Delayed images were obtained to the bladder. Reconstructed coronal and sagittal images were also obtained. Comparison: Prior CT abdomen study of 12/02/19. Findings: Visualized lung bases show slight bibasilar atelectasis. Liver shows fatty infiltration. Small hiatal hernia is seen with mild gastroesophageal reflux of contrast. Spleen size is normal. Adrenal glands show no nodule. Kidneys show symmetric contrast enhancement. Left kidney shows a 2.1 cm abnormality which appears to be solid. This is noted on prior study and appears without change in size. Small cysts are noted within the kidneys as well. Pancreas shows mild diffuse increased density suspicious for pancreatitis. This finding was more significant on previous CT exam. Surgical clips are seen from prior cholecystectomy. Abdominal aorta shows atherosclerotic calcification which continues into the iliac vessels with no aneurysm. No retroperitoneal adenopathy or mesenteric abnormalities are seen. Surgical clips are seen within the right lower quadrant. Small amount of free fluid is seen within the pelvis. Delayed images show contrast within the distal ureters and within the bladder. Bone window settings were reviewed which show disc space narrowing and vacuum phenomena within the L5-S1 level. No acute osseous abnormality is otherwise seen. Impression: 1. Small renal mass unchanged in size from prior study presumably due to renal cell carcinoma. 2. Mild inflammatory change around the pancreas possibly due to pancreatitis which is less prominent on current study than seen previously. 3. Slight bibasilar atelectasis. 4. Small hiatal hernia with mild gastroesophageal reflux. 5. Other chronic findings as described above. Diagnostic code #3
== END 2021-01-13 14:08 | disposition home or self-care (01) ==
LOC: JD.ED 07:12
DX: K85.90 Acute pancreatitis without necrosis or infection, unspecified (principal); I10 Essential (primary) hypertension; K21.9 Gastro-esophageal reflux disease without esophagitis; Z88.5 Allergy status to narcotic agent; Z88.8 Allergy status to other drugs, medicaments and biological substances; Z79.899 Other long term (current) drug therapy
CPT/HCPCS: 36415; 74177; 80053; 80307; 83690; 83735; 85025; 86140; 96374; 96375; 99284; J1170; J1200; J2405; J2930; J3490; J7120; Q9963; Q9967

== ENCOUNTER 2021-02-21 18:38 | Emergency (ER) | payer BC ==
[2021-02-21 19:50] VITALS: BP 152/113; PULSE 101
--- NOTE | 2021-02-21 20:28 | CR ---
Chest: Frontal view of the chest was obtained. Comparison: Prior chest x-ray of 01/10/21 as well as chest CT also performed on 01/10/21. Heart size and mediastinum are within normal limits. Lungs are clear with no acute parenchymal change. Bony structures show nothing acute. Impression: 1. Nothing acute is seen on frontal chest x-ray. Diagnostic code #1
[2021-02-21 20:51] LABS: CORONAVIRUS COVID-19 NAA NEGATIVE (NEGATIVE)
--- NOTE | 2021-02-21 21:42 | EDM.PDOC ---
ED HPI GENERAL MEDICAL PROBLEM - General Chief Complaint: Respiratory Problem Stated Complaint: SOB/2ND VACCINE DOSE Time Seen by Provider: 02/21/21 20:45 Source of Information: Reports: Patient History Limitations: Reports: No Limitations - History of Present Illness INITIAL COMMENTS - FREE TEXT/NARRATIVE: Patient is a 50-year-old female with a past medical history of Takotsubo's cardiomyopathy, pancreatitis presenting with a chief complaint of chest pain shortness of breath. Patient reports symptoms have been ongoing for the past several days. Symptoms started 1 day after her second Covid vaccination. She states the pain is across her upper chest and is bilateral. Does not seem to have any exacerbating or palliative factors. She is also feeling increasingly fatigued. She states she uses an albuterol inhaler which helps her symptoms for about a few minutes. She denies having a history of asthma or COPD. Patient states she was hospitalized last month with a diagnosis of pancreatitis and Takotsubo's cardiomyopathy. She states she was in the hospital for least a week. She states that she had a cardiac catheterization which was unremarkable. Treatments REBAR BENDER: Reports: Other (see below) Other Treatments REBAR BENDER: albuteral inhaler Headache Pain Score (Numeric/FACES): 5 Chest Pain Score (Numeric/FACES): 7 - Related Data Allergies Allergy/AdvReac Type Severity Reaction Status Date / Time morphine Allergy Severe Chest Pain Verified 01/13/21 08:15 oxycodone HCl [From Percocet] Allergy Severe Itching Verified 01/13/21 08:15 sumatriptan [From Imitrex] Allergy Severe Chest Pain Verified 01/13/21 08:15 sumatriptan succinate Allergy Severe Chest Pain Verified 01/13/21 08:15 [From Imitrex] Home Meds: Home Meds Omeprazole 40 mg PO DAILY 08/09/14 [History] Ondansetron [Zofran] 8 mg PO Q8H PRN 08/09/14 [History] amLODIPine [Norvasc] 10 mg PO DAILY 08/09/14 [History] Amphetamine/Dextroamphetamine [Adderall] 10 mg PO DAILY 12/02/19 [History] FLUoxetine [PROzac] 10 mg PO DAILY 12/02/19 [History] Metoprolol Succinate 50 mg PO DAILY 12/02/19 [History] buPROPion HCL [Wellbutrin Xl] 150 mg PO DAILY 12/02/19 [History] Cyclobenzaprine HCl 10 mg PO 12/15/19 [History] Fluticasone Propionate [Flovent] 1 puff IH BID 12/15/19 [History] Levofloxacin 1 tab PO QAM #6 tablet 09/17/20 [Rx] Ondansetron [Zofran ODT] 1 tab PO Q8H PRN #10 tab.dis 09/17/20 [Rx] Hydrocodone/Acetaminophen [HYDROcodone-Acetaminophen 7.5-325 MG] 1 - 2 each PO ASDIRECTED PRN #12 tablet 01/13/21 [Rx] Amoxicillin 500 mg PO TID #21 capsule 02/21/21 [Rx] Doxycycline [Vibra-Tabs] 100 mg PO Q12HR #14 tab 02/21/21 [Rx] Past Medical History HEENT History: Reports: Impaired Vision Cardiovascular History: Reports: Hypertension Respiratory History: Reports: None Gastrointestinal History: Reports: GERD, Pancreatitis, PUD Genitourinary History: Reports: Renal Calculus Other Genitourinary History: renal cell carcinoma INSPECTOR FILTER TIP History: Reports: , Other (See Below) Other INSPECTOR FILTER TIP History: perimenapausal Musculoskeletal History: Reports: Arthritis Neurological History: Reports: Migraines Psychiatric History: Reports: ADHD, Addiction, Anxiety, Depression Hematologic History: Reports: None Immunologic History: Reports: None Oncologic (Cancer) History: Reports: Renal Dermatologic History: Reports: None - Infectious Disease History Infectious Disease History: Reports: Chicken Pox, Novel Coronavirus - Past Surgical History Head Surgeries/Procedures: Reports: None HEENT Surgical History: Reports: Adenoidectomy, Oral Surgery, Tonsillectomy GI Surgical History: Reports: Appendectomy, Bariatric Procedure, Cholecystectomy Female Surgical History: Reports: Cervical Conization, Salpingo-Oophorectomy Musculoskeletal Surgical History: Reports: Arthroscopic Knee Oncologic Surgical History: Reports: Other (See Below) Social & Family History - Family History Cardiac: Reports: Heart Failure Respiratory: Reports: COPD GI: Reports: None : Reports: Renal Calculus OBGYN: Reports: None Musculoskeletal: Reports: None Psychiatric: Reports: None Oncologic: Reports: Breast - Tobacco Use Tobacco Use Status *Q: Current Every Day Tobacco User Years of Tobacco use: 30 Packs/Tins Daily: 0.2 - Caffeine Use Caffeine Use: Reports: Coffee, Soda - Recreational Drug Use Recreational Drug Use: No Other Recreational Drug Type: marijuana card--anxiety - Living Situation & Occupation Living situation: Reports: , with Spouse, with Family (2 kids) Occupation: Employed (tax compliance agent) ED ROS GENERAL - Review of Systems Review Of Systems: See Below Free Text/Narrative/Comment: In addition to that documented in the HPI above, the additional ROS was obtained: Constitutional: Denies fevers or chills Eyes: Denies vision changes ENMT: Denies sore throat CV: Per HPI Resp: Per HPI GI: Denies vomiting or diarrhea : Denies painful urination MSK: Denies recent trauma Skin: Denies new rashes Neuro: Denies new numbness or tingling or weakness Endocrine: Denies unexpected weight loss Heme: Denies bleeding disorders ED EXAM, GENERAL - Physical Exam Exam: See Below Free Text/Narrative:: I have reviewed the triage vital signs Const: Well nourished, well developed, appears stated age Eyes: Pupils Equal and reactive to light bilaterally, no conjunctival injection HENT: No signs of trauma or swelling, Neck supple without meningismus CV: Regular Rate Rhythm, Warm, well-perfused extremities RESP: Unlabored respiratory effort GI: soft, non-tender, non-distended, no masses MSK: No gross deformities appreciated Skin: Warm, dry. No rashes Neuro: Alert, yacht builder II-XII grossly intact. Sensation and motor function of extremities grossly intact. Psych: Appropriate mood and affect. #1 Interpretation EKG Date: 02/21/21 Time: 22:08 Rhythm: NSR Rate (Beats/Min): 74 Beryl: Normal P-Wave: Present QRS: Normal ST-T: Depressed (Anterior lateral T wave inversions V2 through V5) QT: Normal Comparison: NA - No Prior EKG EKG Interpretation Comments: Also noted was ventricular premature complex. No prior EKG for comparison. Abnormal EKG. Course - Vital Signs Last Recorded V/S: Last Vital Signs Temp 35.9 C L 02/21/21 19:47 Pulse 101 H 02/21/21 19:47 Resp 20 02/21/21 19:47 BP 152/113 H 02/21/21 19:47 Pulse Ox 98 02/21/21 19:47 - Orders/Labs/Meds Orders: Active Orders 24 hr Category Date Time Status Ang Chest [CT] Stat Exams 02/21/21 21:20 Taken Labs: Laboratory Tests 02/21/21 02/21/21 02/21/21 Range/Units 19:50 20:12 20:12 WBC 6.38 (3.98-10.04) K/mm3 RBC 3.96 L (3.98-5.22) M/mm3 Hgb 12.0 (11.2-15.7) gm/dl Hct 38.2 (34.1-44.9) % MCV 96.5 H (79.4-94.8) fl MCH 30.3 (25.6-32.2) pg MCHC 31.4 L (32.2-35.5) g/dl RDW Std Deviation 44.0 (36.4-46.3) fL Plt Count 218 (182-369) K/mm3 MPV 10.9 (9.4-12.3) fl Neut % (Auto) 55.8 (34.0-71.1) % Lymph % (Auto) 27.1 (19.3-51.7) % Perkins % (Auto) 10.2 (4.7-12.5) % Eos % (Auto) 6.1 H (0.7-5.8) Baso % (Auto) 0.6 (0.1-1.2) % Neut # (Auto) 3.56 (1.56-6.13) K/mm3 Lymph # (Auto) 1.73 (1.18-3.74) K/mm3 Perkins # (Auto) 0.65 H (0.24-0.36) K/mm3 Eos # (Auto) 0.39 H (0.04-0.36) K/mm3 Baso # (Auto) 0.04 (0.01-0.08) K/mm3 D-Dimer, Quantitative (0.19-0.50) mg/L VBG pH (7.30-7.40) VBG pCO2 (41-51) mmHg VBG pO2 (40-80) mmHG VBG HCO3 (22-26) meq/L VBG O2 Saturation VBG Base Excess (-4.0-2.0) O2 Delivery Device Sodium 138 (136-145) mEq/L Potassium 4.2 (3.5-5.1) mEq/L Chloride 106 (98-107) mEq/L Carbon Dioxide 22 (21-32) mEq/L Anion Gap 14.2 (5-15) BUN 19 H (7-18) mg/dL Creatinine 1.5 H (0.55-1.02) mg/dL Est Cr Clr Drug Dosing 42.94 mL/min Estimated GFR (MDRD) 37 (>60) mL/min BUN/Creatinine Ratio 12.7 L (14-18) Glucose 113 H (70-99) mg/dL Calcium 8.9 (8.5-10.1) mg/dL Total Bilirubin 0.4 (0.2-1.0) mg/dL AST 17 (15-37) U/L ALT 14 (14-59) U/L Alkaline Phosphatase 86 (46-116) U/L Troponin I (0.00-0.056) ng/mL C-Reactive Protein 0.5 (<1.0) mg/dL NT-Pro-B Natriuret Pep (0-125) pg/mL Total Protein 6.9 (6.4-8.2) g/dl Albumin 3.1 L (3.4-5.0) g/dl Globulin 3.8 gm/dL Albumin/Globulin Ratio 0.8 L (1-2) Influenza Type A RNA Negative (NEGATIVE) Influenza Type B RNA Negative (NEGATIVE) SARS-CoV-2 RNA (ELVIRA) Negative (NEGATIVE) 02/21/21 02/21/21 02/21/21 Range/Units 20:12 20:12 20:12 WBC (3.98-10.04) K/mm3 RBC (3.98-5.22) M/mm3 Hgb (11.2-15.7) gm/dl Hct (34.1-44.9) % MCV (79.4-94.8) fl MCH (25.6-32.2) pg MCHC (32.2-35.5) g/dl RDW Std Deviation (36.4-46.3) fL Plt Count (182-369) K/mm3 MPV (9.4-12.3) fl Neut % (Auto) (34.0-71.1) % Lymph % (Auto) (19.3-51.7) % Perkins % (Auto) (4.7-12.5) % Eos % (Auto) (0.7-5.8) Baso % (Auto) (0.1-1.2) % Neut # (Auto) (1.56-6.13) K/mm3 Lymph # (Auto) (1.18-3.74) K/mm3 Perkins # (Auto) (0.24-0.36) K/mm3 Eos # (Auto) (0.04-0.36) K/mm3 Baso # (Auto) (0.01-0.08) K/mm3 D-Dimer, Quantitative 1.55 H (0.19-0.50) mg/L VBG pH (7.30-7.40) VBG pCO2 (41-51) mmHg VBG pO2 (40-80) mmHG VBG HCO3 (22-26) meq/L VBG O2 Saturation VBG Base Excess (-4.0-2.0) O2 Delivery Device Sodium (136-145) mEq/L Potassium (3.5-5.1) mEq/L Chloride (98-107) mEq/L Carbon Dioxide (21-32) mEq/L Anion Gap (5-15) BUN (7-18) mg/dL Creatinine (0.55-1.02) mg/dL Est Cr Clr Drug Dosing mL/min Estimated GFR (MDRD) (>60) mL/min BUN/Creatinine Ratio (14-18) Glucose (70-99) mg/dL Calcium (8.5-10.1) mg/dL Total Bilirubin (0.2-1.0) mg/dL AST (15-37) U/L ALT (14-59) U/L Alkaline Phosphatase (46-116) U/L Troponin I < 0.017 (0.00-0.056) ng/mL C-Reactive Protein (<1.0) mg/dL NT-Pro-B Natriuret Pep 1650 H (0-125) pg/mL Total Protein (6.4-8.2) g/dl Albumin (3.4-5.0) g/dl Globulin gm/dL Albumin/Globulin Ratio (1-2) Influenza Type A RNA (NEGATIVE) Influenza Type B RNA (NEGATIVE) SARS-CoV-2 RNA (ELVIRA) (NEGATIVE) 02/21/21 Range/Units 21:57 WBC (3.98-10.04) K/mm3 RBC (3.98-5.22) M/mm3 Hgb (11.2-15.7) gm/dl Hct (34.1-44.9) % MCV (79.4-94.8) fl MCH (25.6-32.2) pg MCHC (32.2-35.5) g/dl RDW Std Deviation (36.4-46.3) fL Plt Count (182-369) K/mm3 MPV (9.4-12.3) fl Neut % (Auto) (34.0-71.1) % Lymph % (Auto) (19.3-51.7) % Perkins % (Auto) (4.7-12.5) % Eos % (Auto) (0.7-5.8) Baso % (Auto) (0.1-1.2) % Neut # (Auto) (1.56-6.13) K/mm3 Lymph # (Auto) (1.18-3.74) K/mm3 Perkins # (Auto) (0.24-0.36) K/mm3 Eos # (Auto) (0.04-0.36) K/mm3 Baso # (Auto) (0.01-0.08) K/mm3 D-Dimer, Quantitative (0.19-0.50) mg/L VBG pH 7.37 (7.30-7.40) VBG pCO2 39.6 L (41-51) mmHg VBG pO2 40.0 (40-80) mmHG VBG HCO3 22.6 (22-26) meq/L VBG O2 Saturation 65.5 VBG Base Excess -1.9 (-4.0-2.0) O2 Delivery Device Room air Sodium (136-145) mEq/L Potassium (3.5-5.1) mEq/L Chloride (98-107) mEq/L Carbon Dioxide (21-32) mEq/L Anion Gap (5-15) BUN (7-18) mg/dL Creatinine (0.55-1.02) mg/dL Est Cr Clr Drug Dosing mL/min Estimated GFR (MDRD) (>60) mL/min BUN/Creatinine Ratio (14-18) Glucose (70-99) mg/dL Calcium (8.5-10.1) mg/dL Total Bilirubin (0.2-1.0) mg/dL AST (15-37) U/L ALT (14-59) U/L Alkaline Phosphatase (46-116) U/L Troponin I (0.00-0.056) ng/mL C-Reactive Protein (<1.0) mg/dL NT-Pro-B Natriuret Pep (0-125) pg/mL Total Protein (6.4-8.2) g/dl Albumin (3.4-5.0) g/dl Globulin gm/dL Albumin/Globulin Ratio (1-2) Influenza Type A RNA (NEGATIVE) Influenza Type B RNA (NEGATIVE) SARS-CoV-2 RNA (ELVIRA) (NEGATIVE) Meds: Medications Discontinued Medications Generic Name Dose Route Start Last Admin Trade Name Tru PRN Reason Stop Dose Admin Amoxicillin 500 mg 02/21/21 22:40 02/21/21 23:00 Amoxicillin 500 Mg Cap PO 02/21/21 22:41 500 mg ONETIME ONE Administration Doxycycline Hyclate 200 mg 02/21/21 22:40 02/21/21 23:00 Doxycycline 100 Mg Cap PO 02/21/21 22:41 200 mg ONETIME ONE Administration Sodium Chloride 100 mls @ 4 mls/sec 02/21/21 22:26 Normal Saline IV 02/21/21 22:27 ONETIME ONE Iopamidol 100 ml 02/21/21 22:26 Iopamidol 755 Mg/Ml 100 Ml Bottle IVPUSH 02/21/21 22:27 ONETIME ONE Departure - Departure Time of Disposition: 22:39 Disposition: Home, Self-Care 01 Clinical Impression: Shortness of breath, Pneumonia involving right lung - Discharge Information Prescriptions: Amoxicillin 500 mg PO TID #21 capsule Doxycycline [Vibra-Tabs] 100 mg PO Q12HR #14 tab Instructions: Community-Acquired Pneumonia, Adult, [id number] Referrals: Caitlyn Newman, [employer] APPLICATOR [Primary Care Provider] - Forms: ED Department Discharge Additional Instructions: take all medications as prescribed. follow up in the clinic if your not feeling any better in 48 hours. return if you feel you are worsening in any way. Sepsis Event Note (ED) - Focused Exam Vital Signs: Vital Signs Temp Pulse Resp BP Pulse Ox 02/21/21 19:47 35.9 C L 101 H 20 152/113 H 98 - My Orders Last 24 Hours: My Active Orders 02/21/21 21:20 Ang Chest [CT] Stat - Assessment/Plan Last 24 Hours: My Active Orders 02/21/21 21:20 Ang Chest [CT] Stat Assessment:: Patient 42-year-old female presented to the emergency room with complaint of chest pain shortness of breath. Work-up in the emergency room was largely unremarkable. Patient vitally stable and no respiratory distress or hypoxia. Brought differential diagnosis considered for this patient include acute heart failure, pulmonary embolism, ACS, pneumonia. Laboratory studies demonstrate elevated D-dimer but otherwise no significant findings. A CT scan demonstrate inflammatory changes in the right upper lobe but no evidence of PE. With patient symptoms and the CT finding, I will initiate antibiotics until she can have outpatient follow-up. Return precautions discussed. Patient agrees to plan of care.
[2021-02-21] MEDS ORDERED: Iopamidol 755 Mg/ML 100 ML Bottle IVPUSH ONE (22:26)
[2021-02-21] MEDS ORDERED: Sodium Chloride 0.9% 100 ML IV ONE (22:26)
[2021-02-21] MEDS ORDERED: Doxycycline 100 MG Cap PO ONE (22:40)
[2021-02-21] MEDS ORDERED: Amoxicillin 500 MG Cap PO ONE (22:40)
--- NOTE | 2021-02-22 07:21 | CT ---
CT chest Technique: Multiple axial sections through the chest were obtained. Intravenous contrast was utilized. Study has been performed as a pulmonary angiogram protocol. Comparison: Prior chest CT of 01/10/21. Prior chest x-ray of 02/21/21. Findings: Pulmonary arteries are well opacified. No filling defects are seen to indicate pulmonary embolism. Thoracic aorta shows no aneurysm. Mediastinum shows no adenopathy. No axillary adenopathy is seen. No pericardial thickening is seen. Previous abdominal surgery is noted. Pancreas appears within normal limits. Prior cholecystectomy is noted. No acute finding is seen within the visualized abdomen. Lung window settings were reviewed. Slight increased density is noted within the right upper lung which is an interval change from prior chest CT and may represent an area of atelectasis versus an area of pneumonia. Lungs otherwise are clear with no additional abnormality. Bone window settings were reviewed. Small fracture is noted within the anterior left third rib compatible with previous healing fracture. No acute osseous finding is seen. Impression: 1. Slight density within the right upper lung as an interval change from prior chest CT. This may represent an area of atelectasis versus small area of pneumonia if patient has correlating symptoms. 2. Healing fracture within the anterior left third rib with no acute osseous abnormality. 3. No findings of pulmonary embolism are seen. 4. Prior surgery within the upper abdomen. Normal appearing pancreas is seen. Diagnostic code #3 I agree with preliminary report from [facility], finalized on 02/21/21, 11:27 PM INFECTIOUS DISEASE TECHNICIAN, code 3
== END 2021-02-21 23:00 | disposition home or self-care (01) ==
LOC: JD.ED 18:38
DX: J18.9 Pneumonia, unspecified organism (principal); I10 Essential (primary) hypertension; F17.210 Nicotine dependence, cigarettes, uncomplicated; Z88.5 Allergy status to narcotic agent; Z88.8 Allergy status to other drugs, medicaments and biological substances; Z79.899 Other long term (current) drug therapy; Z90.49 Acquired absence of other specified parts of digestive tract; Z20.822 Contact with and (suspected) exposure to COVID-19
CPT/HCPCS: 0240U; 36415; 71045; 71045-26; 71275; 71275-26; 80053; 82803; 83880; 84484; 85025; 85379; 86140; 93005; 99285; 99285-25; A9270-GY

== ENCOUNTER 2021-11-20 07:27 | Inpatient (IN) | payer BC ==
[2021-11-20] MEDS ORDERED: Lactated Ringers 1,000 ML IV ONE (08:25)
[2021-11-20] MEDS ORDERED: Alum Hydrox/Mag Hydrox/Simeth 30 ML, Lidocaine 2% 15 ML PO ONE ×2 (08:25)
[2021-11-20] MEDS ORDERED: HYDROmorphone 0.5 MG/0.5 ML Syringe IVPUSH ONE (08:25)
[2021-11-20] MEDS ORDERED: Ondansetron 4 MG/2 ML SDV IVPUSH ONE (08:25)
[2021-11-20] MEDS ORDERED: Lactated Ringers 1,000 ML IV SCH (08:45)
[2021-11-20] MEDS ORDERED: Sodium Chloride 0.9% 10 ML Syringe FLUSH PRN (08:47)
[2021-11-20] MEDS ORDERED: Iopamidol 612 MG/ML 100 ML Bottle IVPUSH ONE (08:47)
[2021-11-20] MEDS ORDERED: Potassium Chloride 20 MEQ Tab.ER PO ONE (10:02)
[2021-11-20] MEDS ORDERED: Magnesium Oxide 400 MG Tab PO ONE (10:04)
[2021-11-20] MEDS ORDERED: cefTRIAXone 1 GM in Sodium Chloride 0.9% 100 ML IV ONE (12:24)
[2021-11-20] MEDS: Sodium Chloride 0.9% 1,000 ML IV SCH ×2 (12:51→20:48)
[2021-11-20] MEDS ORDERED: Acetaminophen 325 MG Tab PO PRN (12:53)
[2021-11-20] MEDS: HYDROmorphone 1 MG/ML Syringe IVPUSH PRN ×4 (13:56→21:36)
[2021-11-20] MEDS ORDERED: Metoprolol Tartrate 50 MG Tab PO ONE (16:00)
[2021-11-20] MEDS ORDERED: amLODIPine 10 MG Tab PO ONE (16:00)
[2021-11-20] MEDS ORDERED: Temazepam 7.5 MG Cap PO PRN (21:00)
[2021-11-21] MEDS: HYDROmorphone 1 MG/ML Syringe IVPUSH PRN ×7 (00:08→17:12)
[2021-11-21] MEDS: Sodium Chloride 0.9% 1,000 ML IV SCH (04:31)
[2021-11-21] MEDS ORDERED: Non-Formulary Medication 1 Each (Fluticasone Propionate [Flovent] 50 MCG Blst.W.Dev) INH PRN (07:06)
[2021-11-21] MEDS: FLUoxetine 20 MG Cap PO SCH (08:56)
[2021-11-21] MEDS: Furosemide 20 MG Tab PO SCH (08:56)
[2021-11-21] MEDS: Pantoprazole 40 MG Tab.CR PO SCH (08:59)
[2021-11-21] MEDS ORDERED: Metoprolol Succinate 50 MG Tab.ER PO SCH (09:00)
[2021-11-21] MEDS: Enoxaparin 40 MG/0.4 ML Syringe SUBCUT SCH (09:00)
[2021-11-21] MEDS ORDERED: amLODIPine 10 MG Tab PO SCH (09:00)
[2021-11-21] MEDS: Carvedilol 12.5 MG Tab PO SCH ×2 (11:40→20:09)
[2021-11-21] MEDS: buPROPion 150 MG Tab.SR PO SCH ×2 (11:41→20:09)
[2021-11-21] MEDS: cefTRIAXone 1 GM in Sodium Chloride 0.9% 100 ML IV SCH (12:08)
[2021-11-21] MEDS ORDERED: Formoterol/Mometasone 100-5 MCG 8.8 GM Inhaler IH PRN (14:00)
[2021-11-21] MEDS: Acetaminophen/HYDROcodone 325-5 MG Tab PO PRN ×2 (15:54→22:01)
[2021-11-21] MEDS ORDERED: BUPROPION HCL 150 MG PO SCH (21:00)
[2021-11-22] MEDS: Acetaminophen/HYDROcodone 325-5 MG Tab PO PRN ×3 (04:32→13:30)
[2021-11-22] MEDS ORDERED: amLODIPine 10 MG Tab PO SCH (09:00)
[2021-11-22] MEDS ORDERED: Lisinopril 10 MG Tab PO SCH ×2 (09:00)
[2021-11-22] MEDS: Enoxaparin 40 MG/0.4 ML Syringe SUBCUT SCH (09:14)
[2021-11-22] MEDS: buPROPion 150 MG Tab.SR PO SCH (09:14)
[2021-11-22] MEDS: FLUoxetine 20 MG Cap PO SCH (09:16)
[2021-11-22] MEDS: Pantoprazole 40 MG Tab.CR PO SCH (09:16)
[2021-11-22] MEDS: Carvedilol 12.5 MG Tab PO SCH (09:16)
[2021-11-22] MEDS: Furosemide 20 MG Tab PO SCH (09:17)
[2021-11-22 13:23] VITALS: BP 137/93; PULSE 68
[2021-11-22] MEDS: cefTRIAXone 1 GM in Sodium Chloride 0.9% 100 ML IV SCH (13:24)
== END 2021-11-22 15:12 | disposition home or self-care (01) | DRG 282 ==
LOC: JD.ED 07:27 → JD.MS 12:40
PROVIDERS: ADMIT Internal Medicine; ATTEND Internal Medicine
DX: K85.20 Alcohol induced acute pancreatitis without necrosis or infection (principal); N39.0 Urinary tract infection, site not specified; F10.10 Alcohol abuse, uncomplicated; F17.200 Nicotine dependence, unspecified, uncomplicated; F41.9 Anxiety disorder, unspecified; F33.0 Major depressive disorder, recurrent, mild; B96.20 Unspecified Escherichia coli [E. coli] as the cause of diseases classified elsewhere; Z20.822 Contact with and (suspected) exposure to COVID-19; H54.7 Unspecified visual loss; I10 Essential (primary) hypertension; K21.9 Gastro-esophageal reflux disease without esophagitis; K86.0 Alcohol-induced chronic pancreatitis; Z88.5 Allergy status to narcotic agent; Z79.899 Other long term (current) drug therapy; Z87.442 Personal history of urinary calculi; Z85.528 Personal history of other malignant neoplasm of kidney; Z98.84 Bariatric surgery status; Z90.49 Acquired absence of other specified parts of digestive tract
CPT/HCPCS: 36415; 74177; 74177-26; 80053; 80307; 81001; 81025; 83690; 83735; 84484; 85025; 85610; 85730; 87086; 87088; 87186; 93005; A9270-GY; J0696; J1170; J1650; J2405; J3490; J7030; J7120; Q9967; U0002

== ENCOUNTER 2022-01-16 19:05 | Inpatient (IN) | payer BC ==
[2022-01-16] MEDS ORDERED: HYDROmorphone 0.5 MG/0.5 ML Syringe IVPUSH ONE ×2 (19:40→20:40)
[2022-01-16] MEDS ORDERED: Ondansetron 4 MG/2 ML SDV IVPUSH ONE (19:40)
[2022-01-16] MEDS: Sodium Chloride 0.9% 1,000 ML IV SCH ×3 (20:00→23:48)
[2022-01-16] MEDS: Sodium Chloride 0.9% 10 ML Syringe FLUSH PRN (20:07)
[2022-01-16] MEDS ORDERED: cefTRIAXone 1 GM in Sodium Chloride 0.9% 100 ML IV ONE (21:50)
[2022-01-16] MEDS: HYDROmorphone 0.5 MG/0.5 ML Syringe IVPUSH PRN (23:13)
[2022-01-17] MEDS: HYDROmorphone 0.5 MG/0.5 ML Syringe IVPUSH PRN ×8 (01:27→20:17)
[2022-01-17] MEDS: Ondansetron 4 MG/2 ML SDV IVPUSH PRN ×2 (03:38→11:37)
[2022-01-17] MEDS ORDERED: Magnesium Sulfate/Water 2 GM in Premix Bag 1 BAG IV ONE (06:23)
[2022-01-17] MEDS: Sodium Chloride 0.9% 1,000 ML IV SCH ×2 (08:50→17:55)
[2022-01-17] MEDS: Acetaminophen/HYDROcodone 325-10 MG Tab PO PRN ×2 (14:35→21:42)
[2022-01-17] MEDS: cefTRIAXone 2 GM in Sodium Chloride 0.9% 100 ML IV SCH (17:55)
[2022-01-17] MEDS: Carvedilol 12.5 MG Tab PO SCH (20:20)
[2022-01-17] MEDS: buPROPion 150 MG Tab.SR PO SCH (20:20)
[2022-01-18] MEDS: HYDROmorphone 0.5 MG/0.5 ML Syringe IVPUSH PRN ×4 (02:48→20:39)
[2022-01-18] MEDS: Acetaminophen/HYDROcodone 325-10 MG Tab PO PRN ×3 (03:55→23:51)
[2022-01-18] MEDS: Sodium Chloride 0.9% 1,000 ML IV SCH ×3 (03:56→23:51)
[2022-01-18] MEDS: Carvedilol 12.5 MG Tab PO SCH ×2 (08:28→20:38)
[2022-01-18] MEDS: buPROPion 150 MG Tab.SR PO SCH ×2 (08:31→20:38)
[2022-01-18] MEDS: Furosemide 20 MG Tab PO SCH (08:31)
[2022-01-18] MEDS: Lisinopril 10 MG Tab PO SCH (08:31)
[2022-01-18] MEDS: FLUoxetine 20 MG Cap PO SCH (08:32)
[2022-01-18] MEDS: Pantoprazole 40 MG Tab.CR PO SCH (08:32)
[2022-01-18] MEDS ORDERED: Enoxaparin 30 MG/0.3 ML Syringe SUBCUT SCH (09:15)
[2022-01-18] MEDS: cefTRIAXone 2 GM in Sodium Chloride 0.9% 100 ML IV SCH (17:30)
[2022-01-19] MEDS: HYDROmorphone 0.5 MG/0.5 ML Syringe IVPUSH PRN ×2 (04:17→18:55)
[2022-01-19] MEDS: Enoxaparin 40 MG/0.4 ML Syringe SUBCUT SCH (08:48)
[2022-01-19] MEDS: Lisinopril 10 MG Tab PO SCH (08:50)
[2022-01-19] MEDS: Carvedilol 12.5 MG Tab PO SCH ×2 (08:50→20:05)
[2022-01-19] MEDS: buPROPion 150 MG Tab.SR PO SCH ×2 (08:51→20:05)
[2022-01-19] MEDS: Acetaminophen/HYDROcodone 325-10 MG Tab PO PRN ×3 (08:51→21:00)
[2022-01-19] MEDS: Pantoprazole 40 MG Tab.CR PO SCH (08:52)
[2022-01-19] MEDS: FLUoxetine 20 MG Cap PO SCH (08:52)
[2022-01-19] MEDS: Furosemide 20 MG Tab PO SCH (08:52)
[2022-01-19] MEDS: Sodium Chloride 0.9% 1,000 ML IV SCH (09:54)
[2022-01-19] MEDS: Acetaminophen 325 MG Tab PO PRN (16:07)
[2022-01-20] MEDS: HYDROmorphone 0.5 MG/0.5 ML Syringe IVPUSH PRN ×4 (01:10→19:58)
[2022-01-20] MEDS: Sodium Chloride 0.9% 10 ML Syringe FLUSH PRN ×2 (01:14→20:01)
[2022-01-20] MEDS: Acetaminophen/HYDROcodone 325-10 MG Tab PO PRN ×4 (03:47→22:45)
[2022-01-20] MEDS: Ondansetron 4 MG/2 ML SDV IVPUSH PRN ×2 (03:50→18:38)
[2022-01-20] MEDS: Carvedilol 12.5 MG Tab PO SCH ×2 (08:22→20:42)
[2022-01-20] MEDS: FLUoxetine 20 MG Cap PO SCH (08:23)
[2022-01-20] MEDS: buPROPion 150 MG Tab.SR PO SCH ×2 (08:23→20:42)
[2022-01-20] MEDS: Lisinopril 10 MG Tab PO SCH ×2 (08:24→16:12)
[2022-01-20] MEDS: Pantoprazole 40 MG Tab.CR PO SCH (08:24)
[2022-01-20] MEDS: Furosemide 20 MG Tab PO SCH (08:24)
[2022-01-20] MEDS: Enoxaparin 40 MG/0.4 ML Syringe SUBCUT SCH (08:24)
[2022-01-20] MEDS: Acetaminophen 325 MG Tab PO PRN (11:31)
[2022-01-20] MEDS ORDERED: traZODone 50 MG Tab PO ONE ×2 (14:58→21:00)
[2022-01-21] MEDS: HYDROmorphone 0.5 MG/0.5 ML Syringe IVPUSH PRN ×2 (03:36→10:13)
[2022-01-21] MEDS: Acetaminophen/HYDROcodone 325-10 MG Tab PO PRN ×2 (06:20→12:46)
[2022-01-21] MEDS: Ondansetron 4 MG/2 ML SDV IVPUSH PRN (08:21)
[2022-01-21] MEDS: FLUoxetine 20 MG Cap PO SCH (08:27)
[2022-01-21] MEDS: Carvedilol 12.5 MG Tab PO SCH ×2 (08:27→20:20)
[2022-01-21] MEDS: buPROPion 150 MG Tab.SR PO SCH ×2 (08:28→20:20)
[2022-01-21] MEDS: Pantoprazole 40 MG Tab.CR PO SCH (08:29)
[2022-01-21] MEDS: Lisinopril 10 MG Tab PO SCH (08:29)
[2022-01-21] MEDS: Furosemide 20 MG Tab PO SCH (08:30)
[2022-01-21] MEDS: Enoxaparin 40 MG/0.4 ML Syringe SUBCUT SCH (08:30)
[2022-01-21] MEDS: Acetaminophen 325 MG Tab PO PRN (11:56)
[2022-01-21] MEDS ORDERED: Metoprolol Tartrate 50 MG Tab PO SCH (13:30)
[2022-01-21] MEDS ORDERED: amLODIPine 5 MG Tab PO SCH (13:45)
[2022-01-21] MEDS: Dextrose 5%-0.9% NaCl 1,000 ML IV SCH (15:53)
[2022-01-21] MEDS: HYDROmorphone 1 MG/ML Syringe IVPUSH PRN ×2 (15:57→20:22)
[2022-01-21] MEDS: Acetaminophen/oxyCODONE 325-5 MG Tab PO PRN (18:42)
[2022-01-22] MEDS: HYDROmorphone 1 MG/ML Syringe IVPUSH PRN ×4 (00:01→10:35)
[2022-01-22] MEDS: Dextrose 5%-0.9% NaCl 1,000 ML IV SCH (01:39)
[2022-01-22 08:11] VITALS: BP 140/94
[2022-01-22] MEDS: buPROPion 150 MG Tab.SR PO SCH (08:11)
[2022-01-22] MEDS: Carvedilol 12.5 MG Tab PO SCH (08:11)
[2022-01-22] MEDS: Pantoprazole 40 MG Tab.CR PO SCH (08:11)
[2022-01-22] MEDS: Enoxaparin 40 MG/0.4 ML Syringe SUBCUT SCH (08:12)
[2022-01-22] MEDS: FLUoxetine 20 MG Cap PO SCH (08:12)
[2022-01-22 08:14] VITALS: PULSE 75
[2022-01-22] MEDS ORDERED: amLODIPine 10 MG Tab PO SCH (09:00)
[2022-01-22] MEDS: Acetaminophen/oxyCODONE 325-5 MG Tab PO PRN (12:47)
== END 2022-01-22 13:30 | disposition home or self-care (01) | DRG 282 ==
LOC: JD.ED 19:05 → JD.ICU 21:48
PROVIDERS: ADMIT Internal Medicine; ATTEND Internal Medicine
DX: K85.20 Alcohol induced acute pancreatitis without necrosis or infection (principal); N39.0 Urinary tract infection, site not specified; F33.0 Major depressive disorder, recurrent, mild; F10.10 Alcohol abuse, uncomplicated; F41.9 Anxiety disorder, unspecified; Z79.899 Other long term (current) drug therapy; N28.89 Other specified disorders of kidney and ureter; R91.1 Solitary pulmonary nodule; E66.9 Obesity, unspecified; Z88.5 Allergy status to narcotic agent; Z88.8 Allergy status to other drugs, medicaments and biological substances; H54.7 Unspecified visual loss; K21.9 Gastro-esophageal reflux disease without esophagitis; N18.30 Chronic kidney disease, stage 3 unspecified; M19.90 Unspecified osteoarthritis, unspecified site; G43.909 Migraine, unspecified, not intractable, without status migrainosus; F90.9 Attention-deficit hyperactivity disorder, unspecified type; Z86.16 Personal history of COVID-19; Z90.89 Acquired absence of other organs; Z90.49 Acquired absence of other specified parts of digestive tract; Z98.84 Bariatric surgery status; F17.210 Nicotine dependence, cigarettes, uncomplicated; I12.9 Hypertensive chronic kidney disease with stage 1 through stage 4 chronic kidney disease, or unspecified chronic kidney disease
CPT/HCPCS: 36415; 71045; 71045-26; 74176; 74176-26; 80053; 81001; 83690; 83735; 84484; 85025; 86140; 87086; 87088; 87186; 93005; A9270-GY; J0696; J1170; J1650; J2405; J3475; J3490; J7030; J7042

== ENCOUNTER 2022-01-26 10:39 | Emergency (ER) | payer BC ==
[2022-01-26 10:52] VITALS: BP 154/107
[2022-01-26] MEDS ORDERED: Sodium Chloride 0.9% 10 ML Syringe FLUSH PRN (11:13)
[2022-01-26 11:50] VITALS: PULSE 87
[2022-01-26 12:44] LABS: CORONAVIRUS COVID-19 NAA NEGATIVE (NEGATIVE)
== END 2022-01-26 14:00 | disposition home or self-care (01) ==
LOC: JD.ED 10:39
DX: I13.0 Hypertensive heart and chronic kidney disease with heart failure and stage 1 through stage 4 chronic kidney disease, or unspecified chronic kidney disease (principal); I50.23 Acute on chronic systolic (congestive) heart failure; N18.30 Chronic kidney disease, stage 3 unspecified; K21.9 Gastro-esophageal reflux disease without esophagitis; Z86.16 Personal history of COVID-19; Z88.5 Allergy status to narcotic agent; Z88.8 Allergy status to other drugs, medicaments and biological substances; Z79.899 Other long term (current) drug therapy; Z20.822 Contact with and (suspected) exposure to COVID-19
CPT/HCPCS: 0240U; 36415; 71046; 80053; 83540; 83880; 84466; 84484; 85025; 86140; 93005; 99285; J3490

== ENCOUNTER 2022-03-02 14:39 | Emergency (ER) | payer BC ==
[2022-03-02 15:00] VITALS: PULSE 94
[2022-03-02] MEDS ORDERED: Aspirin 81 MG Tab.Chew PO ONE (15:04)
[2022-03-02] MEDS ORDERED: Metoclopramide 10 MG/2 ML SDV IVPUSH ONE (15:05)
[2022-03-02] MEDS ORDERED: diphenhydrAMINE 50 MG/ML SDV IVPUSH ONE (15:05)
[2022-03-02] MEDS ORDERED: Nitroglycerin/D5W 25 MG/250 ML BOTTLE IV SCH (15:15)
[2022-03-02] MEDS ORDERED: Dextrose 5%-Lactated Ringers 1,000 ML IV SCH (15:15)
[2022-03-02 15:47] LABS: ESTIMATED GFR 62 mL/min (>60)
[2022-03-02] MEDS ORDERED: Furosemide 40 MG/4 ML VIAL IVPUSH ONE (18:31)
[2022-03-02] MEDS ORDERED: Ketorolac 30 MG/ML SDV IVPUSH SCH (18:45)
[2022-03-02 19:25] VITALS: BP 140/90
== END 2022-03-02 19:21 | disposition home or self-care (01) ==
LOC: JD.ED 14:39
DX: I13.0 Hypertensive heart and chronic kidney disease with heart failure and stage 1 through stage 4 chronic kidney disease, or unspecified chronic kidney disease (principal); N18.30 Chronic kidney disease, stage 3 unspecified; I50.23 Acute on chronic systolic (congestive) heart failure; K21.9 Gastro-esophageal reflux disease without esophagitis; M19.90 Unspecified osteoarthritis, unspecified site; R94.31 Abnormal electrocardiogram [ECG] [EKG]; Z88.5 Allergy status to narcotic agent; Z88.8 Allergy status to other drugs, medicaments and biological substances; Z79.899 Other long term (current) drug therapy
CPT/HCPCS: 36415; 71045; 80053; 81001; 82553; 83690; 83735; 83880; 84484; 85025; 85379; 85610; 85730; 86140; 96361; 96365; 96366; 96375; 99285; A9270; J1200; J1885; J1940; J2765; J3490; J7121

== ENCOUNTER 2022-04-25 09:06 | Emergency (ER) | payer BC ==
[2022-04-25 09:28] VITALS: PULSE 96
[2022-04-25] MEDS ORDERED: Aspirin 81 MG Tab.Chew PO ONE (09:34)
[2022-04-25] MEDS: Nitroglycerin 0.4 MG Tab.SL SL PRN ×3 (09:40→09:54)
[2022-04-25] MEDS ORDERED: Sodium Chloride 0.9% 1,000 ML IV SCH (09:45)
[2022-04-25] MEDS ORDERED: LORazepam 2 MG/ML SDV IVPUSH ONE (09:58)
[2022-04-25] MEDS ORDERED: Acetaminophen 325 MG Tab PO ONE (10:15)
[2022-04-25] MEDS ORDERED: HYDROmorphone 0.5 MG/0.5 ML Syringe IVPUSH ONE (11:09)
[2022-04-25 15:21] VITALS: BP 161/119
== END 2022-04-25 13:35 | disposition home or self-care (01) ==
LOC: JD.ED 09:06
DX: I13.0 Hypertensive heart and chronic kidney disease with heart failure and stage 1 through stage 4 chronic kidney disease, or unspecified chronic kidney disease (principal); I50.9 Heart failure, unspecified; I43 Cardiomyopathy in diseases classified elsewhere; N18.30 Chronic kidney disease, stage 3 unspecified; K21.9 Gastro-esophageal reflux disease without esophagitis; Z88.5 Allergy status to narcotic agent; Z88.8 Allergy status to other drugs, medicaments and biological substances; Z79.899 Other long term (current) drug therapy; Z87.891 Personal history of nicotine dependence
CPT/HCPCS: 36415; 71045; 80053; 84484; 85025; 85610; 85730; 93005; 96374; 96375; 99285; A9270; J1170; J2060; J7030

== ENCOUNTER 2022-11-26 10:25 | Inpatient (IN) | payer BC ==
[2022-11-26] MEDS ORDERED: fentaNYL 100 MCG/2 ML SDV IVPUSH ONE (11:12)
[2022-11-26] MEDS ORDERED: Ondansetron 4 MG/2 ML SDV IVPUSH ONE (11:12)
[2022-11-26] MEDS ORDERED: Sodium Chloride 0.9% 1,000 ML IV ONE ×2 (11:14→13:29)
[2022-11-26 12:08] LABS: BASOPHILS ABSOLUTE AUTO 0.1 K/mm3 (0.0-0.2); EOSINOPHILS PERCENT AUTO 0.6 % (0.0-6.0); HEMATOCRIT 36.3 % (37.0-47.0); HEMOGLOBIN 11.9 gm/dl (12.0-16.0); IMMATURE GRAN ABSOLUTE AUTO 0.01 K/mm3 (0.00-0.05); IMMATURE GRAN PERCENT AUTO 0.2 % (0.0-0.4); LYMPHOCYTES ABSOLUTE AUTO 0.9 K/mm3 (1.0-4.8); LYMPHOCYTES PERCENT AUTO 18.2 % (24.0-44.0); MEAN CORPUSCULAR HEMOGLOBIN 31.8 pg (28.0-32.0); MEAN CORPUSCULAR HGB CONC 32.8 g/dl (32.0-36.0); MEAN CORPUSCULAR VOLUME 97.1 fl (83.0-99.0); MEAN PLATELET VOLUME 9.5 fl (9.4-12.3); MONOCYTES ABSOLUTE AUTO 0.7 K/mm3 (0.0-0.8); MONOCYTES PERCENT AUTO 13.5 % (0.0-8.0); NEUTROPHILS ABSOLUTE AUTO 3.4 K/mm3 (1.8-7.7); NEUTROPHILS PERCENT AUTO 66.5 % (41.0-71.0); PLATELET COUNT,PLT 207 K/mm3 (150-400); RED BLOOD CELL COUNT 3.74 M/mm3 (4.10-5.30); WHITE BLOOD CELL COUNT,WBC 5.05 K/mm3 (3.9-11.3)
[2022-11-26 12:39] LABS: A/G RATIO 0.7 (1-2); ALBUMIN 3.2 g/dl (3.4-5.0); BILIRUBIN TOTAL 1.6 mg/dL (0.2-1.0); C-REACTIVE PROTEIN 1.6 mg/dL (<1.0); CALCIUM 9.4 mg/dL (8.5-10.1); EST CRCL DRUG DOSING (CG) 63.01 mL/min; MAGNESIUM 1.9 mg/dL (1.8-2.4); PROTEIN TOTAL,TP 7.5 g/dl (6.4-8.2)
[2022-11-26] MEDS ORDERED: Aspirin 81 MG Tab.Chew PO ONE (12:47)
[2022-11-26] MEDS ORDERED: Sodium Chloride 0.9% 10 ML Syringe FLUSH PRN (12:54)
[2022-11-26] MEDS ORDERED: Iopamidol 612 MG/ML 100 ML Bottle IVPUSH ONE (12:54)
[2022-11-26 13:39] LABS: PROTHROMBIN TIME 10.7 SECONDS (9.7-12.0)
[2022-11-26 13:40] LABS: PTT,PARTIAL THROMBOPLSTIN TIME 25.5 SECONDS (21.7-31.4)
[2022-11-26] MEDS ORDERED: HYDROmorphone 1 MG/ML Syringe IVPUSH ONE (14:48)
[2022-11-26] MEDS ORDERED: Docusate Sodium 100 MG Cap PO PRN (16:19)
[2022-11-26] MEDS ORDERED: Thiamine 200 MG/2 ML MDV IVPUSH ONE (16:29)
[2022-11-26] MEDS ORDERED: Folic Acid 50 MG/10 ML MDV IV ONE (16:30)
[2022-11-26] MEDS ORDERED: Furosemide 40 MG/4 ML VIAL IVPUSH ONE (16:31)
[2022-11-26] MEDS ORDERED: Folic Acid 1 MG Tab PO ONE (17:07)
[2022-11-26] MEDS: Carvedilol 12.5 MG Tab PO SCH (17:34)
[2022-11-26] MEDS: Pantoprazole 40 MG Tab.CR PO SCH (17:34)
[2022-11-26] MEDS: Ondansetron 4 MG/2 ML SDV IV PRN ×2 (17:54→23:54)
[2022-11-26] MEDS: HYDROmorphone 0.5 MG/0.5 ML Syringe IVPUSH PRN ×3 (17:54→23:14)
[2022-11-26 18:19] LABS: BARBITURATE SCREEN,URINE NEGATIVE (CUTOFF=200); BENZODIAZEPINES SCREEN,URINE PRESUMPTIVE POSITIVE (CUTOFF=150); BUPRENORPHINE SCREEN,URINE NEGATIVE (CUTOFF=10); METHADONE SCREEN, URINE NEGATIVE (CUTOFF=200); METHAMPHETAMINES SCREEN, URINE NEGATIVE (CUTOFF=500); OXYCODONE SCREEN,URINE NEGATIVE (CUT0FF=100); PROPOXYPHENE SCREEN,URINE NEGATIVE (CUTOFF=300); THC SCREEN,URINE 20 NG/ML PRESUMPTIVE POSITIVE (CUTOFF=50)
[2022-11-26 18:34] LABS: AMPHETAMINES SCREEN, URINE PRESUMPTIVE POSITIVE (CUTOFF=500)
[2022-11-26] MEDS: Sodium Chloride 0.9% 1,000 ML IV SCH ×2 (20:01→21:16)
[2022-11-26] MEDS: buPROPion 150 MG Tab.SR PO SCH (20:16)
[2022-11-27] MEDS: Sodium Chloride 0.9% 1,000 ML IV SCH ×2 (01:21→04:46)
[2022-11-27] MEDS: LORazepam 2 MG/ML SDV IVPUSH PRN ×3 (01:22→04:39)
[2022-11-27] MEDS: HYDROmorphone 0.5 MG/0.5 ML Syringe IVPUSH PRN ×3 (01:23→10:48)
[2022-11-27] MEDS ORDERED: Metoclopramide 10 MG/2 ML SDV IVPUSH PRN (01:29)
[2022-11-27 05:45] LABS: EOSINOPHILS ABSOLUTE AUTO 0.1 K/mm3 (0.0-0.4); EOSINOPHILS PERCENT AUTO 3.1 % (0.0-6.0); HEMATOCRIT 31.3 % (37.0-47.0); HEMOGLOBIN 10.2 gm/dl (12.0-16.0); IMMATURE GRAN ABSOLUTE AUTO 0.01 K/mm3 (0.00-0.05); IMMATURE GRAN PERCENT AUTO 0.3 % (0.0-0.4); LYMPHOCYTES ABSOLUTE AUTO 0.9 K/mm3 (1.0-4.8); LYMPHOCYTES PERCENT AUTO 23.1 % (24.0-44.0); MEAN CORPUSCULAR HEMOGLOBIN 32.2 pg (28.0-32.0); MEAN CORPUSCULAR HGB CONC 32.6 g/dl (32.0-36.0); MEAN CORPUSCULAR VOLUME 98.7 fl (83.0-99.0); MEAN PLATELET VOLUME 10.4 fl (9.4-12.3); MONOCYTES ABSOLUTE AUTO 0.4 K/mm3 (0.0-0.8); MONOCYTES PERCENT AUTO 11.1 % (0.0-8.0); NEUTROPHILS ABSOLUTE AUTO 2.4 K/mm3 (1.8-7.7); NEUTROPHILS PERCENT AUTO 61.4 % (41.0-71.0); PLATELET COUNT,PLT 138 K/mm3 (150-400); RED BLOOD CELL COUNT 3.17 M/mm3 (4.10-5.30); WHITE BLOOD CELL COUNT,WBC 3.89 K/mm3 (3.9-11.3)
[2022-11-27] MEDS ORDERED: Furosemide 40 MG/4 ML VIAL IVPUSH SCH (06:00)
[2022-11-27 06:12] LABS: A/G RATIO 0.7 (1-2); ALBUMIN 2.6 g/dl (3.4-5.0); ANION GAP 16.9 (5-15); BILIRUBIN TOTAL 0.7 mg/dL (0.2-1.0); EST CRCL DRUG DOSING (CG) 63.01 mL/min; MAGNESIUM 1.6 mg/dL (1.8-2.4); POTASSIUM,K 3.9 mEq/L (3.5-5.1); PROTEIN TOTAL,TP 6.3 g/dl (6.4-8.2)
[2022-11-27] MEDS: Carvedilol 12.5 MG Tab PO SCH (06:37)
[2022-11-27 06:46] LABS: CALCIUM 7.8 mg/dL (8.5-10.1)
[2022-11-27] MEDS ORDERED: Magnesium Sulfate/Water 2 GM in Premix Bag 1 BAG IV ONE (08:00)
[2022-11-27] MEDS: buPROPion 150 MG Tab.SR PO SCH (08:26)
[2022-11-27] MEDS: Pantoprazole 40 MG Tab.CR PO SCH (08:26)
[2022-11-27] MEDS ORDERED: FLUoxetine 20 MG Cap PO SCH (09:00)
[2022-11-27] MEDS ORDERED: Folic Acid 1 MG Tab PO SCH (09:00)
[2022-11-27] MEDS ORDERED: Thiamine 100 MG Tab PO SCH (09:00)
[2022-11-27] MEDS ORDERED: Dextrose 5%-0.9% NaCl with KCl 1,000 ML IV SCH (10:15)
[2022-11-27] MEDS ORDERED: Empagliflozin 10 MG Tab PO SCH (13:00)
[2022-11-27] MEDS ORDERED: Sacubitril/Valsartan 1 EACH Tablet PO SCH (13:00)
[2022-11-27 13:36] VITALS: BP 126/97; PULSE 95
[2022-11-27] MEDS ORDERED: Scopolamine 1.5 MG Transdermal Patch TRDERM SCH (14:00)
== END 2022-11-27 13:40 | DRG 438 ==
LOC: JD.ED 10:25 → JD.MS 15:44
PROVIDERS: ADMIT Hospitalist; ATTEND Hospitalist
DX: K85.20 Alcohol induced acute pancreatitis without necrosis or infection (principal); I21.A1 Myocardial infarction type 2; I50.23 Acute on chronic systolic (congestive) heart failure; I13.0 Hypertensive heart and chronic kidney disease with heart failure and stage 1 through stage 4 chronic kidney disease, or unspecified chronic kidney disease; F33.0 Major depressive disorder, recurrent, mild; I42.9 Cardiomyopathy, unspecified; E78.00 Pure hypercholesterolemia, unspecified; K21.9 Gastro-esophageal reflux disease without esophagitis; M19.90 Unspecified osteoarthritis, unspecified site; G43.909 Migraine, unspecified, not intractable, without status migrainosus; F41.9 Anxiety disorder, unspecified; G47.30 Sleep apnea, unspecified; F17.210 Nicotine dependence, cigarettes, uncomplicated; K76.0 Fatty (change of) liver, not elsewhere classified; R16.0 Hepatomegaly, not elsewhere classified; N18.30 Chronic kidney disease, stage 3 unspecified; N20.0 Calculus of kidney; F90.9 Attention-deficit hyperactivity disorder, unspecified type; F10.10 Alcohol abuse, uncomplicated; E80.6 Other disorders of bilirubin metabolism; R74.01 Elevation of levels of liver transaminase levels; E83.42 Hypomagnesemia; E88.09 Other disorders of plasma-protein metabolism, not elsewhere classified; I08.1 Rheumatic disorders of both mitral and tricuspid valves; I44.7 Left bundle-branch block, unspecified; Z88.5 Allergy status to narcotic agent; Z88.8 Allergy status to other drugs, medicaments and biological substances; Z79.899 Other long term (current) drug therapy; Z87.440 Personal history of urinary (tract) infections; Z87.442 Personal history of urinary calculi; Z85.53 Personal history of malignant neoplasm of renal pelvis; Z86.16 Personal history of COVID-19; Z98.84 Bariatric surgery status; Z90.89 Acquired absence of other organs; Z98.890 Other specified postprocedural states; Z90.49 Acquired absence of other specified parts of digestive tract; Z90.722 Acquired absence of ovaries, bilateral; Z90.79 Acquired absence of other genital organ(s); Z86.59 Personal history of other mental and behavioral disorders
CPT/HCPCS: 36415; 74177; 74177-26; 80053; 80306; 80307; 82947; 83690; 83735; 83880; 84100; 84484; 85025; 85610; 85730; 86140; 93005; 93307; 96361; 96374; 96375; 99285-25; A9270-GY; J1170; J1940; J2060; J2405; J2765; J3010; J3411; J3475; J3480; J3490; J7030; Q9967

== ENCOUNTER 2023-02-01 09:55 | Emergency (ER) | payer BC ==
[2023-02-01] MEDS ORDERED: Sodium Chloride 0.9% 1,000 ML IV STA (10:30)
[2023-02-01] MEDS ORDERED: Sodium Chloride 0.9% 10 ML Syringe FLUSH PRN (10:30)
[2023-02-01] MEDS ORDERED: Iopamidol 612 MG/ML 100 ML Bottle IVPUSH ONE (11:01)
[2023-02-01 11:05] LABS: BASOPHILS PERCENT AUTO 0.7 % (0.0-1.0); EOSINOPHILS PERCENT AUTO 0.4 % (0.0-6.0); HEMATOCRIT 37.3 % (37.0-47.0); IMMATURE GRAN ABSOLUTE AUTO 0.01 K/mm3 (0.00-0.05); IMMATURE GRAN PERCENT AUTO 0.2 % (0.0-0.4); LYMPHOCYTES ABSOLUTE AUTO 0.6 K/mm3 (1.0-4.8); LYMPHOCYTES PERCENT AUTO 13.5 % (24.0-44.0); MEAN CORPUSCULAR HEMOGLOBIN 29.4 pg (28.0-32.0); MEAN CORPUSCULAR HGB CONC 32.2 g/dl (32.0-36.0); MEAN PLATELET VOLUME 10.2 fl (9.4-12.3); MONOCYTES ABSOLUTE AUTO 0.4 K/mm3 (0.0-0.8); MONOCYTES PERCENT AUTO 9.1 % (0.0-8.0); NEUTROPHILS ABSOLUTE AUTO 3.5 K/mm3 (1.8-7.7); NEUTROPHILS PERCENT AUTO 76.1 % (41.0-71.0); PLATELET COUNT,PLT 235 K/mm3 (150-400); RED BLOOD CELL COUNT 4.08 M/mm3 (4.10-5.30)
[2023-02-01 11:06] LABS: APPEARANCE,URINE SLT CLOUDY (Clear); BILIRUBIN,URINE 1+ (Negative); COLOR,URINE DARK YELLOW (Yellow); GLUCOSE,URINE 2+ (Negative); KETONES,URINE 2+ (Negative); LEUKOCYTE ESTERASE,URINE NEGATIVE (Negative); NITRITE,URINE NEGATIVE (Negative); OCCULT BLOOD,URINE NEGATIVE (Negative); PROTEIN,URINE 1+ (Negative)
[2023-02-01 11:10] LABS: MEAN CORPUSCULAR VOLUME 91.4 fl (83.0-99.0)
[2023-02-01 11:28] LABS: BACTERIA,URINE FEW /hpf (FEW); MUCUS,URINE MANY /hpf (FEW); RBC,URINE 0-5 /hpf (0-5); WBC,URINE 0-5 /hpf (0-5)
[2023-02-01 11:35] LABS: A/G RATIO 0.8 (1-2); ALBUMIN 3.4 g/dl (3.4-5.0); ANION GAP 17.3 (5-15); BILIRUBIN TOTAL 1.6 mg/dL (0.2-1.0); CALCIUM 9.1 mg/dL (8.5-10.1); CREATININE 1.2 mg/dL (0.55-1.02); EST CRCL DRUG DOSING (CG) 52.5 mL/min; POTASSIUM,K 4.3 mEq/L (3.5-5.1); PROTEIN TOTAL,TP 7.8 g/dl (6.4-8.2)
[2023-02-01 13:43] VITALS: BP 156/100; PULSE 97
== END 2023-02-01 13:53 | disposition home or self-care (01) ==
LOC: JD.ED 09:55
DX: K29.20 Alcoholic gastritis without bleeding (principal); K25.3 Acute gastric ulcer without hemorrhage or perforation; I13.0 Hypertensive heart and chronic kidney disease with heart failure and stage 1 through stage 4 chronic kidney disease, or unspecified chronic kidney disease; I50.9 Heart failure, unspecified; K21.9 Gastro-esophageal reflux disease without esophagitis; N18.30 Chronic kidney disease, stage 3 unspecified; F17.210 Nicotine dependence, cigarettes, uncomplicated; Z88.5 Allergy status to narcotic agent; Z88.1 Allergy status to other antibiotic agents; Z79.899 Other long term (current) drug therapy
CPT/HCPCS: 36415; 74177; 80053; 81001; 83690; 85025; 96360; 99284; J7030; Q9967

== ENCOUNTER 2023-04-28 14:13 | Inpatient (IN) | payer BC ==
[2023-04-28] MEDS ORDERED: Sodium Chloride 0.9% 10 ML Syringe FLUSH PRN (14:52)
[2023-04-28] MEDS ORDERED: HYDROmorphone 0.5 MG/0.5 ML Syringe IVPUSH ONE ×2 (14:54→18:07)
[2023-04-28] MEDS ORDERED: Ondansetron 4 MG/2 ML SDV IVPUSH ONE (14:54)
[2023-04-28] MEDS ORDERED: Iopamidol 612 MG/ML 100 ML Bottle IVPUSH ONE (15:10)
[2023-04-28 15:16] LABS: BASOPHILS PERCENT AUTO 0.5 % (0.0-1.0); EOSINOPHILS ABSOLUTE AUTO 0.3 K/mm3 (0.0-0.4); EOSINOPHILS PERCENT AUTO 3.5 % (0.0-6.0); HEMOGLOBIN 10.6 gm/dl (12.0-16.0); IMMATURE GRAN ABSOLUTE AUTO 0.03 K/mm3 (0.00-0.05); IMMATURE GRAN PERCENT AUTO 0.4 % (0.0-0.4); LYMPHOCYTES ABSOLUTE AUTO 1.6 K/mm3 (1.0-4.8); LYMPHOCYTES PERCENT AUTO 19.8 % (24.0-44.0); MEAN CORPUSCULAR HEMOGLOBIN 29.4 pg (28.0-32.0); MEAN CORPUSCULAR HGB CONC 30.3 g/dl (32.0-36.0); MEAN CORPUSCULAR VOLUME 97.2 fl (83.0-99.0); MEAN PLATELET VOLUME 10.1 fl (9.4-12.3); MONOCYTES ABSOLUTE AUTO 0.9 K/mm3 (0.0-0.8); MONOCYTES PERCENT AUTO 11.6 % (0.0-8.0); NEUTROPHILS ABSOLUTE AUTO 5.1 K/mm3 (1.8-7.7); NEUTROPHILS PERCENT AUTO 64.2 % (41.0-71.0); PLATELET COUNT,PLT 296 K/mm3 (150-400); WHITE BLOOD CELL COUNT,WBC 7.93 K/mm3 (3.9-11.3)
[2023-04-28 15:27] LABS: A/G RATIO 0.5 (1-2); ALBUMIN 2.1 g/dl (3.4-5.0); ANION GAP 12.9 (5-15); BILIRUBIN TOTAL 0.3 mg/dL (0.2-1.0); CALCIUM 8.3 mg/dL (8.5-10.1); EST CRCL DRUG DOSING (CG) 63.01 mL/min; POTASSIUM,K 3.9 mEq/L (3.5-5.1); PROTEIN TOTAL,TP 6.6 g/dl (6.4-8.2)
[2023-04-28] MEDS ORDERED: Sodium Chloride 0.9% 1,000 ML IV SCH (15:45)
[2023-04-28 16:47] LABS: APPEARANCE,URINE SLT CLOUDY (Clear); BILIRUBIN,URINE NEGATIVE (Negative); COLOR,URINE YELLOW (Yellow); GLUCOSE,URINE NEGATIVE (Negative); KETONES,URINE NEGATIVE (Negative); LEUKOCYTE ESTERASE,URINE 1+ (Negative); NITRITE,URINE NEGATIVE (Negative); OCCULT BLOOD,URINE NEGATIVE (Negative); PROTEIN,URINE NEGATIVE (Negative)
[2023-04-28 16:57] LABS: BACTERIA,URINE MODERATE /hpf (FEW); MUCUS,URINE FEW /hpf (FEW); RBC,URINE 0-5 /hpf (0-5); WBC,URINE 40-50 /hpf (0-5)
[2023-04-28] MEDS ORDERED: cefTRIAXone 1 GM in Sodium Chloride 0.9% 100 ML IV ONE (17:44)
[2023-04-28] MEDS ORDERED: Acetaminophen 325 MG Tab PO PRN (18:44)
[2023-04-28] MEDS ORDERED: Ondansetron 4 MG/2 ML SDV IV PRN (18:44)
[2023-04-28] MEDS ORDERED: LORazepam 2 MG/ML SDV IVPUSH PRN (19:16)
[2023-04-28] MEDS ORDERED: cefTRIAXone 1 GM in Sodium Chloride 0.9% 100 ML IV SCH (19:30)
[2023-04-28] MEDS: Morphine 2 MG/ML SYRINGE IVPUSH PRN (20:49)
[2023-04-28] MEDS: Lactated Ringers 1,000 ML IV SCH (20:49)
[2023-04-28] MEDS: Acetaminophen/HYDROcodone 325-5 MG Tab PO PRN (20:54)
[2023-04-28] MEDS: Carvedilol 12.5 MG Tab PO SCH (21:35)
[2023-04-29] MEDS ORDERED: diphenhydrAMINE 25 MG Cap PO PRN (01:07)
[2023-04-29] MEDS: Acetaminophen/HYDROcodone 325-5 MG Tab PO PRN ×4 (01:08→15:16)
[2023-04-29] MEDS: Morphine 2 MG/ML SYRINGE IVPUSH PRN ×3 (01:08→09:16)
[2023-04-29 05:46] LABS: A/G RATIO 0.5 (1-2); ALBUMIN 1.6 g/dl (3.4-5.0); BILIRUBIN TOTAL 0.5 mg/dL (0.2-1.0); CALCIUM 7.9 mg/dL (8.5-10.1); EST CRCL DRUG DOSING (CG) 63.01 mL/min; PROTEIN TOTAL,TP 5.1 g/dl (6.4-8.2)
[2023-04-29 05:54] LABS: BASOPHILS PERCENT AUTO 0.6 % (0.0-1.0); EOSINOPHILS ABSOLUTE AUTO 0.2 K/mm3 (0.0-0.4); EOSINOPHILS PERCENT AUTO 4.3 % (0.0-6.0); HEMATOCRIT 29.2 % (37.0-47.0); IMMATURE GRAN ABSOLUTE AUTO 0.02 K/mm3 (0.00-0.05); IMMATURE GRAN PERCENT AUTO 0.4 % (0.0-0.4); LYMPHOCYTES ABSOLUTE AUTO 1.3 K/mm3 (1.0-4.8); LYMPHOCYTES PERCENT AUTO 25.4 % (24.0-44.0); MEAN CORPUSCULAR HEMOGLOBIN 29.6 pg (28.0-32.0); MEAN CORPUSCULAR HGB CONC 30.5 g/dl (32.0-36.0); MEAN PLATELET VOLUME 10.4 fl (9.4-12.3); MONOCYTES ABSOLUTE AUTO 0.7 K/mm3 (0.0-0.8); MONOCYTES PERCENT AUTO 13.4 % (0.0-8.0); NEUTROPHILS ABSOLUTE AUTO 2.8 K/mm3 (1.8-7.7); NEUTROPHILS PERCENT AUTO 55.9 % (41.0-71.0); PLATELET COUNT,PLT 239 K/mm3 (150-400); RED BLOOD CELL COUNT 3.01 M/mm3 (4.10-5.30); WHITE BLOOD CELL COUNT,WBC 5.07 K/mm3 (3.9-11.3)
[2023-04-29 06:00] LABS: HEMOGLOBIN 8.9 gm/dl (12.0-16.0)
[2023-04-29] MEDS: Insulin Lispro 100 Unit/ML 3 ML KwikPen SUBCUT SCH ×2 (07:17→11:05)
[2023-04-29] MEDS: Carvedilol 12.5 MG Tab PO SCH (08:26)
[2023-04-29] MEDS ORDERED: Pantoprazole 40 MG Tab.CR PO SCH (09:00)
[2023-04-29] MEDS: Lactated Ringers 1,000 ML IV SCH (09:15)
[2023-04-29 12:02] VITALS: BP 123/97; PULSE 74
[2023-04-29] MEDS ORDERED: Aspirin 81 MG Tab.EC PO SCH (15:30)
[2023-04-29] MEDS ORDERED: Thiamine 100 MG Tab PO SCH (15:30)
[2023-04-29] MEDS ORDERED: Spironolactone 25 MG Tab PO SCH (15:30)
[2023-04-29] MEDS ORDERED: Prazosin 1 MG Cap PO SCH (15:30)
[2023-04-29] MEDS ORDERED: cefTRIAXone 1 GM in Sodium Chloride 0.9% 100 ML IV SCH (18:00)
[2023-04-29] MEDS ORDERED: cloNIDine 0.1 MG Tab PO SCH (21:00)
== END 2023-04-29 16:47 | disposition home or self-care (01) | DRG 282 ==
LOC: JD.ED 14:13 → JD.MS 17:40
PROVIDERS: ADMIT Student in an Organized Health Care Education/Training Program; ATTEND Student in an Organized Health Care Education/Training Program
DX: K85.20 Alcohol induced acute pancreatitis without necrosis or infection (principal); K55.069 Acute infarction of intestine, part and extent unspecified; I13.0 Hypertensive heart and chronic kidney disease with heart failure and stage 1 through stage 4 chronic kidney disease, or unspecified chronic kidney disease; M19.90 Unspecified osteoarthritis, unspecified site; I50.9 Heart failure, unspecified; K21.9 Gastro-esophageal reflux disease without esophagitis; E78.00 Pure hypercholesterolemia, unspecified; N18.30 Chronic kidney disease, stage 3 unspecified; E11.22 Type 2 diabetes mellitus with diabetic chronic kidney disease; F90.9 Attention-deficit hyperactivity disorder, unspecified type; F41.9 Anxiety disorder, unspecified; D63.1 Anemia in chronic kidney disease; F32.A Depression, unspecified; N30.00 Acute cystitis without hematuria; F17.210 Nicotine dependence, cigarettes, uncomplicated; Z88.5 Allergy status to narcotic agent; Z88.8 Allergy status to other drugs, medicaments and biological substances; Z86.16 Personal history of COVID-19; Z90.49 Acquired absence of other specified parts of digestive tract; Z90.721 Acquired absence of ovaries, unilateral; I25.2 Old myocardial infarction; Z79.899 Other long term (current) drug therapy; Z98.84 Bariatric surgery status; Z79.82 Long term (current) use of aspirin; Z98.890 Other specified postprocedural states
CPT/HCPCS: 36415; 74177; 74177-26; 80053; 81001; 82947; 83690; 85025; 87086; 87088; 87186; 93005; 93010; 93307; 99223; 99239; 99284; A9270-GY; J0696; J1170; J2270; J2405; J3490; J7030; J7120; Q9967

== ENCOUNTER 2023-04-30 12:54 | Emergency (ER) | payer BC ==
[2023-04-30] MEDS ORDERED: Haloperidol Lactate 5 MG/ML SDV IM ONE (14:16)
[2023-04-30] MEDS ORDERED: Sodium Chloride 0.9% 1,000 ML IV ONE (14:16)
[2023-04-30] MEDS ORDERED: diphenhydrAMINE 50 MG/ML SDV IVPUSH ONE (14:17)
[2023-04-30] MEDS ORDERED: Metoclopramide 10 MG/2 ML SDV IVPUSH ONE (14:18)
[2023-04-30] MEDS ORDERED: Sodium Chloride 0.9% 10 ML Syringe FLUSH ONE (14:27)
[2023-04-30] MEDS ORDERED: Iopamidol 612 MG/ML 30 ML SDV IVPUSH ONE (14:27)
[2023-04-30] MEDS ORDERED: Iopamidol 612 MG/ML 100 ML Bottle IVPUSH ONE (14:27)
[2023-04-30 14:49] LABS: HEMOGLOBIN 10.3 gm/dl (12.0-16.0); MEAN CORPUSCULAR HEMOGLOBIN 29.9 pg (28.0-32.0); MEAN CORPUSCULAR HGB CONC 31.2 g/dl (32.0-36.0); MEAN CORPUSCULAR VOLUME 95.9 fl (83.0-99.0); MEAN PLATELET VOLUME 9.7 fl (9.4-12.3); PLATELET COUNT,PLT 356 K/mm3 (150-400); RED BLOOD CELL COUNT 3.44 M/mm3 (4.10-5.30); WHITE BLOOD CELL COUNT,WBC 8.28 K/mm3 (3.9-11.3)
[2023-04-30 15:11] LABS: INR 1.03
[2023-04-30 15:22] LABS: A/G RATIO 0.5 (1-2); ALANINE AMINOTRANSFERASE,ALT 27 U/L (14-59); ALKALINE PHOSPHATASE 118 U/L (46-116); ANION GAP 11.6 (5-15); ASPARTATE AMNIOTRANSFERASE,AST 33 U/L (15-37); BILIRUBIN TOTAL 0.4 mg/dL (0.2-1.0); BLOOD UREA NITROGEN,BUN 10 mg/dL (7-18); CALCIUM 8.5 mg/dL (8.5-10.1); CARBON DIOXIDE,CO2 28 mEq/L (21-32); CHLORIDE,CL 104 mEq/L (98-107); ESTIMATED GFR 69 mL/min (>60); GLUCOSE RANDOM 88 mg/dL (70-99); LIPASE 36 U/L (16-77); MAGNESIUM 1.7 mg/dL (1.8-2.4); POTASSIUM,K 4.6 mEq/L (3.5-5.1); PROTEIN TOTAL,TP 6.4 g/dl (6.4-8.2); SODIUM,NA 139 mEq/L (136-145); TROPONIN I HIGH SENSITIVITY 9 pg/mL (<=51)
[2023-04-30 15:29] LABS: C-REACTIVE PROTEIN 16.1 mg/dL (<1.0)
[2023-04-30 15:56] LABS: LACTIC ACID 0.6 mmol/L (0.4-2.0)
[2023-04-30 16:54] LABS: APPEARANCE,URINE CLEAR (Clear); BILIRUBIN,URINE NEGATIVE (Negative); COLOR,URINE YELLOW (Yellow); GLUCOSE,URINE NEGATIVE (Negative); KETONES,URINE NEGATIVE (Negative); LEUKOCYTE ESTERASE,URINE NEGATIVE (Negative); NITRITE,URINE NEGATIVE (Negative); OCCULT BLOOD,URINE NEGATIVE (Negative); PROTEIN,URINE NEGATIVE (Negative); UROBILINOGEN,URINE 0.2 (0.2-1.0)
[2023-04-30 17:01] LABS: BARBITURATE SCREEN,URINE NEGATIVE (CUTOFF=200); BENZODIAZEPINES SCREEN,URINE NEGATIVE (CUTOFF=150); BUPRENORPHINE SCREEN,URINE NEGATIVE (CUTOFF=10); METHADONE SCREEN, URINE NEGATIVE (CUTOFF=200); METHAMPHETAMINES SCREEN, URINE NEGATIVE (CUTOFF=500); OXYCODONE SCREEN,URINE NEGATIVE (CUT0FF=100); THC SCREEN,URINE 20 NG/ML PRESUMPTIVE POSITIVE (CUTOFF=50)
[2023-04-30 17:05] LABS: AMPHETAMINES SCREEN, URINE NEGATIVE (CUTOFF=500)
[2023-04-30 18:46] VITALS: BP 176/88; PULSE 89
== END 2023-04-30 18:37 | disposition home or self-care (01) ==
LOC: JD.ED 12:54
DX: R10.31 Right lower quadrant pain (principal); R10.32 Left lower quadrant pain; G89.29 Other chronic pain; I13.0 Hypertensive heart and chronic kidney disease with heart failure and stage 1 through stage 4 chronic kidney disease, or unspecified chronic kidney disease; I50.9 Heart failure, unspecified; N18.30 Chronic kidney disease, stage 3 unspecified; E78.00 Pure hypercholesterolemia, unspecified; K21.9 Gastro-esophageal reflux disease without esophagitis; Z86.16 Personal history of COVID-19; Z79.82 Long term (current) use of aspirin; Z79.899 Other long term (current) drug therapy; Z88.5 Allergy status to narcotic agent; Z88.8 Allergy status to other drugs, medicaments and biological substances
CPT/HCPCS: 36415; 71045; 74177; 80053; 80306; 80307; 81003; 81025; 83605; 83690; 83735; 83880; 84484; 85027; 85610; 86140; 93005; 96361; 96372; 96374; 96375; 99284; J1200; J1630; J2765; J3490; J7030; Q9967; 93010; 99285

== ENCOUNTER 2023-06-20 20:24 | Emergency (ER) | payer SELFPAY ==
[2023-06-20 21:26] LABS: APPEARANCE,URINE CLEAR (Clear); BILIRUBIN,URINE 1+ (Negative); COLOR,URINE DARK YELLOW (Yellow); GLUCOSE,URINE NEGATIVE (Negative); KETONES,URINE TRACE (Negative); LEUKOCYTE ESTERASE,URINE NEGATIVE (Negative); NITRITE,URINE NEGATIVE (Negative); OCCULT BLOOD,URINE NEGATIVE (Negative); PROTEIN,URINE 1+ (Negative)
[2023-06-20 21:32] LABS: BASOPHILS PERCENT AUTO 0.2 % (0.0-1.0); EOSINOPHILS ABSOLUTE AUTO 0.4 K/mm3 (0.0-0.4); EOSINOPHILS PERCENT AUTO 4.8 % (0.0-6.0); HEMATOCRIT 36.4 % (37.0-47.0); HEMOGLOBIN 11.4 gm/dl (12.0-16.0); IMMATURE GRAN ABSOLUTE AUTO 0.03 K/mm3 (0.00-0.05); IMMATURE GRAN PERCENT AUTO 0.3 % (0.0-0.4); LYMPHOCYTES ABSOLUTE AUTO 1.9 K/mm3 (1.0-4.8); LYMPHOCYTES PERCENT AUTO 21.8 % (24.0-44.0); MEAN CORPUSCULAR HEMOGLOBIN 28.9 pg (28.0-32.0); MEAN CORPUSCULAR HGB CONC 31.3 g/dl (32.0-36.0); MEAN CORPUSCULAR VOLUME 92.2 fl (83.0-99.0); MEAN PLATELET VOLUME 10.6 fl (9.4-12.3); MONOCYTES ABSOLUTE AUTO 0.8 K/mm3 (0.0-0.8); MONOCYTES PERCENT AUTO 9.3 % (0.0-8.0); NEUTROPHILS ABSOLUTE AUTO 5.6 K/mm3 (1.8-7.7); NEUTROPHILS PERCENT AUTO 63.6 % (41.0-71.0); PLATELET COUNT,PLT 352 K/mm3 (150-400); RED BLOOD CELL COUNT 3.95 M/mm3 (4.10-5.30); WHITE BLOOD CELL COUNT,WBC 8.78 K/mm3 (3.9-11.3)
[2023-06-20 21:38] LABS: A/G RATIO 0.6 (1-2); ALBUMIN 2.7 g/dl (3.4-5.0); BILIRUBIN TOTAL 0.7 mg/dL (0.2-1.0); BUN/CREATININE RATIO 19.1 (14-18); CALCIUM 8.8 mg/dL (8.5-10.1); CREATININE 1.1 mg/dL (0.55-1.02); EST CRCL DRUG DOSING (CG) 57.28 mL/min; MAGNESIUM 1.5 mg/dL (1.8-2.4); PROTEIN TOTAL,TP 6.9 g/dl (6.4-8.2)
[2023-06-20] MEDS: Pantoprazole 40 MG Vial IVPUSH ONE (21:47)
[2023-06-20] MEDS: Ondansetron 4 MG/2 ML SDV IVPUSH ONE (21:47)
[2023-06-20] MEDS: Sodium Chloride 0.9% 10 ML Syringe FLUSH PRN (21:48)
[2023-06-20 22:04] LABS: BACTERIA,URINE FEW /hpf (FEW); MUCUS,URINE MANY /hpf (FEW); RBC,URINE 0-5 /hpf (0-5); WBC,URINE 0-5 /hpf (0-5)
[2023-06-20] MEDS: Ketorolac 30 MG/ML SDV IVPUSH ONE (22:10)
[2023-06-20] MEDS: Diclofenac Sodium 1% Gel 100 GM Tube TOP ONE (23:03)
[2023-06-21 00:30] VITALS: BP 152/111; PULSE 106
== END 2023-06-20 22:55 | disposition home or self-care (01) ==
LOC: JD.ED 20:24
DX: R07.89 Other chest pain (principal); G89.29 Other chronic pain; R10.84 Generalized abdominal pain; F10.10 Alcohol abuse, uncomplicated; I11.0 Hypertensive heart disease with heart failure; I50.9 Heart failure, unspecified; K21.9 Gastro-esophageal reflux disease without esophagitis; Z86.16 Personal history of COVID-19; Z90.49 Acquired absence of other specified parts of digestive tract; Z88.8 Allergy status to other drugs, medicaments and biological substances; Z79.82 Long term (current) use of aspirin; Z79.899 Other long term (current) drug therapy
CPT/HCPCS: 36415; 71045; 71045-26; 80053; 81001; 83690; 83735; 84484; 85025; 93005; 96374; 96375; 99285-25; A9270-GY; C9113; J1885; J2405; J3490

== ENCOUNTER 2023-08-19 18:20 | Emergency (ER) | payer OTHER ==
[2023-08-19 20:14] LABS: APPEARANCE,URINE CLEAR (Clear); BILIRUBIN,URINE 1+ (Negative); COLOR,URINE DARK YELLOW (Yellow); GLUCOSE,URINE NEGATIVE (Negative); KETONES,URINE NEGATIVE (Negative); LEUKOCYTE ESTERASE,URINE 1+ (Negative); NITRITE,URINE POSITIVE (Negative); OCCULT BLOOD,URINE NEGATIVE (Negative); PH,URINE 6.5 (5.0-8.0); PROTEIN,URINE TRACE (Negative); UROBILINOGEN,URINE >=8.0 (0.2-1.0)
[2023-08-19 20:24] LABS: BACTERIA,URINE MANY /hpf (FEW); MUCUS,URINE NOT SEEN /hpf (FEW); RBC,URINE NOT SEEN /hpf (0-5); WBC,URINE 20-30 /hpf (0-5)
[2023-08-19 20:51] LABS: BASOPHILS PERCENT AUTO 0.3 % (0.0-1.0); EOSINOPHILS ABSOLUTE AUTO 0.1 K/mm3 (0.0-0.4); EOSINOPHILS PERCENT AUTO 1.3 % (0.0-6.0); HEMOGLOBIN 9.7 gm/dl (12.0-16.0); IMMATURE GRAN ABSOLUTE AUTO 0.05 K/mm3 (0.00-0.05); IMMATURE GRAN PERCENT AUTO 0.5 % (0.0-0.4); LYMPHOCYTES ABSOLUTE AUTO 1.7 K/mm3 (1.0-4.8); LYMPHOCYTES PERCENT AUTO 17.3 % (24.0-44.0); MEAN CORPUSCULAR HEMOGLOBIN 28.1 pg (28.0-32.0); MEAN CORPUSCULAR HGB CONC 32.3 g/dl (32.0-36.0); MONOCYTES ABSOLUTE AUTO 1.3 K/mm3 (0.0-0.8); MONOCYTES PERCENT AUTO 13.5 % (0.0-8.0); NEUTROPHILS ABSOLUTE AUTO 6.5 K/mm3 (1.8-7.7); NEUTROPHILS PERCENT AUTO 67.1 % (41.0-71.0); PLATELET COUNT,PLT 385 K/mm3 (150-400); RED BLOOD CELL COUNT 3.45 M/mm3 (4.10-5.30); WHITE BLOOD CELL COUNT,WBC 9.66 K/mm3 (3.9-11.3)
[2023-08-19 21:16] LABS: A/G RATIO 0.4 (1-2); ALBUMIN 1.9 g/dl (3.4-5.0); ANION GAP 11.6 (5-15); BILIRUBIN TOTAL 1.2 mg/dL (0.2-1.0); CALCIUM 8.6 mg/dL (8.5-10.1); EST CRCL DRUG DOSING (CG) 63.01 mL/min; POTASSIUM,K 3.6 mEq/L (3.5-5.1); PROTEIN TOTAL,TP 6.6 g/dl (6.4-8.2)
[2023-08-19] MEDS ORDERED: Sodium Chloride 0.9% 10 ML Syringe FLUSH PRN (22:34)
[2023-08-19] MEDS: Iopamidol 612 MG/ML 100 ML Bottle IVPUSH ONE (23:05)
[2023-08-19] MEDS: Lactated Ringers 1,000 ML IV SCH (23:09)
[2023-08-19] MEDS: Ondansetron 4 MG/2 ML SDV IVPUSH ONE (23:09)
[2023-08-19] MEDS: Morphine 4 MG/ML Syringe IVPUSH ONE (23:09)
[2023-08-20] MEDS: Piperacillin/Tazobactam 4.5 GM in Sodium Chloride 0.9% 100 ML IV ONE (00:44)
[2023-08-20] MEDS: Morphine 4 MG/ML Syringe IVPUSH ONE (03:01)
[2023-08-20 05:33] VITALS: BP 133/73; PULSE 88
== END 2023-08-20 04:57 | disposition critical access hospital (66) ==
LOC: JD.ED 18:20
DX: K65.1 Peritoneal abscess (principal); K63.1 Perforation of intestine (nontraumatic); I11.0 Hypertensive heart disease with heart failure; I50.9 Heart failure, unspecified; E78.00 Pure hypercholesterolemia, unspecified; K21.9 Gastro-esophageal reflux disease without esophagitis; Z86.16 Personal history of COVID-19; Z79.82 Long term (current) use of aspirin; Z79.899 Other long term (current) drug therapy; Z88.5 Allergy status to narcotic agent; Z88.8 Allergy status to other drugs, medicaments and biological substances
CPT/HCPCS: 36415; 74177; 74177-26; 80053; 81001; 81003; 83690; 85025; 87086; 87088; 87186; 96361; 96365; 96375; 96376; 99284-25; 99285; J2270; J2405; J2543; J3490; J7120; Q9967

== ENCOUNTER 2023-10-03 16:13 | Emergency (ER) | payer OTHER ==
[2023-10-03] MEDS: Acetaminophen 325 MG Tab PO ONE (17:47)
[2023-10-03 18:44] VITALS: BP 141/90; PULSE 74
== END 2023-10-03 18:44 | disposition home or self-care (01) ==
LOC: JD.ED 16:13
DX: S42.035A Nondisplaced fracture of lateral end of left clavicle, initial encounter for closed fracture (principal); I11.0 Hypertensive heart disease with heart failure; I50.9 Heart failure, unspecified; K21.9 Gastro-esophageal reflux disease without esophagitis; F17.210 Nicotine dependence, cigarettes, uncomplicated; Z86.16 Personal history of COVID-19; Z90.49 Acquired absence of other specified parts of digestive tract; Z79.899 Other long term (current) drug therapy; Z88.5 Allergy status to narcotic agent; Z88.8 Allergy status to other drugs, medicaments and biological substances; W19.XXXA Unspecified fall, initial encounter
CPT/HCPCS: 71101; 73020; 99283; A9270

== ENCOUNTER 2023-10-14 19:29 | Emergency (ER) | payer OTHER ==
[2023-10-14] MEDS ORDERED: Sodium Chloride 0.9% 10 ML Syringe FLUSH PRN (19:56)
[2023-10-14 20:05] LABS: BASOPHILS PERCENT AUTO 0.2 % (0.0-1.0); EOSINOPHILS PERCENT AUTO 0.2 % (0.0-6.0); HEMATOCRIT 39.7 % (37.0-47.0); HEMOGLOBIN 12.8 gm/dl (12.0-16.0); IMMATURE GRAN ABSOLUTE AUTO 0.01 K/mm3 (0.00-0.05); IMMATURE GRAN PERCENT AUTO 0.2 % (0.0-0.4); LYMPHOCYTES ABSOLUTE AUTO 0.6 K/mm3 (1.0-4.8); LYMPHOCYTES PERCENT AUTO 13.8 % (24.0-44.0); MEAN CORPUSCULAR HGB CONC 32.2 g/dl (32.0-36.0); MEAN CORPUSCULAR VOLUME 93.2 fl (83.0-99.0); MEAN PLATELET VOLUME 10.5 fl (9.4-12.3); MONOCYTES ABSOLUTE AUTO 0.2 K/mm3 (0.0-0.8); MONOCYTES PERCENT AUTO 4.8 % (0.0-8.0); NEUTROPHILS ABSOLUTE AUTO 3.5 K/mm3 (1.8-7.7); NEUTROPHILS PERCENT AUTO 80.8 % (41.0-71.0); PLATELET COUNT,PLT 208 K/mm3 (150-400); RED BLOOD CELL COUNT 4.26 M/mm3 (4.10-5.30); WHITE BLOOD CELL COUNT,WBC 4.35 K/mm3 (3.9-11.3)
[2023-10-14] MEDS: HYDROmorphone 1 MG/ML Syringe IVPUSH ONE (20:06)
[2023-10-14 20:21] LABS: A/G RATIO 0.7 (1-2); ALBUMIN 3.2 g/dl (3.4-5.0); ANION GAP 15.4 (5-15); BILIRUBIN TOTAL 0.4 mg/dL (0.2-1.0); BUN/CREATININE RATIO 17.7 (14-18); C-REACTIVE PROTEIN 2.24 mg/dL (<0.30); CALCIUM 9.3 mg/dL (8.5-10.1); CREATININE 1.3 mg/dL (0.55-1.02); EST CRCL DRUG DOSING (CG) 42.35 mL/min; POTASSIUM,K 4.4 mEq/L (3.5-5.1); PROTEIN TOTAL,TP 7.5 g/dl (6.4-8.2)
[2023-10-14] MEDS: Iopamidol 612 MG/ML 100 ML Bottle IVPUSH ONE (20:23)
[2023-10-14] MEDS: Sodium Chloride 0.9% 10 ML Syringe FLUSH PRN (20:23)
[2023-10-14] MEDS: Iopamidol 612 MG/ML 30 ML SDV IVPUSH ONE (20:23)
[2023-10-14] MEDS: Ondansetron 4 MG/2 ML SDV ONE (21:07)
[2023-10-14] MEDS: Ondansetron 4 MG/2 ML SDV IVPUSH ONE (21:07)
[2023-10-14] MEDS ORDERED: HYDROmorphone 0.5 MG/0.5 ML Syringe IVPUSH ONE (22:16)
[2023-10-14 22:37] VITALS: BP 160/98; PULSE 89
== END 2023-10-14 22:40 | disposition home or self-care (01) ==
LOC: JD.ED 19:29
DX: J18.9 Pneumonia, unspecified organism (principal); K85.20 Alcohol induced acute pancreatitis without necrosis or infection; S42.035A Nondisplaced fracture of lateral end of left clavicle, initial encounter for closed fracture; S22.42XA Multiple fractures of ribs, left side, initial encounter for closed fracture; I11.0 Hypertensive heart disease with heart failure; I50.9 Heart failure, unspecified; K21.9 Gastro-esophageal reflux disease without esophagitis; Z86.16 Personal history of COVID-19; Z90.49 Acquired absence of other specified parts of digestive tract; Z79.899 Other long term (current) drug therapy; Z88.5 Allergy status to narcotic agent; Z88.8 Allergy status to other drugs, medicaments and biological substances; W19.XXXA Unspecified fall, initial encounter
CPT/HCPCS: 36415; 71260; 74177; 80053; 83690; 84484; 85025; 86140; 93005; 96374; 96375; 99285; J1170; J2405; J3490; Q9967

== ENCOUNTER 2023-10-15 12:58 | Emergency (ER) | payer OTHER ==
[2023-10-15 13:36] VITALS: BP 168/90; PULSE 107
== END 2023-10-15 14:20 | disposition home or self-care (01) ==
LOC: JD.ED 12:58
DX: J18.9 Pneumonia, unspecified organism (principal); S22.49XD Multiple fractures of ribs, unspecified side, subsequent encounter for fracture with routine healing; S42.009D Fracture of unspecified part of unspecified clavicle, subsequent encounter for fracture with routine healing; I11.0 Hypertensive heart disease with heart failure; I50.9 Heart failure, unspecified; K21.9 Gastro-esophageal reflux disease without esophagitis; Z86.16 Personal history of COVID-19; Z90.49 Acquired absence of other specified parts of digestive tract; Z79.899 Other long term (current) drug therapy; Z88.6 Allergy status to analgesic agent; Z88.8 Allergy status to other drugs, medicaments and biological substances; W19.XXXD Unspecified fall, subsequent encounter
CPT/HCPCS: 99281; 99284

== ENCOUNTER 2023-10-18 11:30 | Emergency (ER) | payer OTHER ==
[2023-10-18] MEDS ORDERED: Ondansetron 4 MG/2 ML SDV ONE (12:06)
[2023-10-18] MEDS ORDERED: Sodium Chloride 0.9% 1,000 ML ONE (12:06)
[2023-10-18] MEDS: Ondansetron 4 MG/2 ML SDV IVPUSH ONE (12:13)
[2023-10-18] MEDS: Sodium Chloride 0.9% 1,000 ML IV ONE (12:33)
[2023-10-18] MEDS: Sodium Chloride 0.9% 10 ML Syringe FLUSH PRN (12:33)
[2023-10-18 12:44] LABS: BASOPHILS PERCENT AUTO 0.5 % (0.0-1.0); EOSINOPHILS ABSOLUTE AUTO 0.1 K/mm3 (0.0-0.4); EOSINOPHILS PERCENT AUTO 1.4 % (0.0-6.0); HEMATOCRIT 41.1 % (37.0-47.0); HEMOGLOBIN 12.9 gm/dl (12.0-16.0); IMMATURE GRAN ABSOLUTE AUTO 0.04 K/mm3 (0.00-0.05); IMMATURE GRAN PERCENT AUTO 0.5 % (0.0-0.4); LYMPHOCYTES ABSOLUTE AUTO 2.2 K/mm3 (1.0-4.8); LYMPHOCYTES PERCENT AUTO 25.8 % (24.0-44.0); MEAN CORPUSCULAR HEMOGLOBIN 29.3 pg (28.0-32.0); MEAN CORPUSCULAR HGB CONC 31.4 g/dl (32.0-36.0); MEAN CORPUSCULAR VOLUME 93.2 fl (83.0-99.0); MONOCYTES ABSOLUTE AUTO 0.9 K/mm3 (0.0-0.8); MONOCYTES PERCENT AUTO 10.2 % (0.0-8.0); NEUTROPHILS ABSOLUTE AUTO 5.3 K/mm3 (1.8-7.7); NEUTROPHILS PERCENT AUTO 61.6 % (41.0-71.0); PLATELET COUNT,PLT 225 K/mm3 (150-400); RED BLOOD CELL COUNT 4.41 M/mm3 (4.10-5.30); WHITE BLOOD CELL COUNT,WBC 8.64 K/mm3 (3.9-11.3)
[2023-10-18 12:55] LABS: A/G RATIO 0.7 (1-2); ALBUMIN 3.1 g/dl (3.4-5.0); ANION GAP 15.3 (5-15); BILIRUBIN TOTAL 0.5 mg/dL (0.2-1.0); BUN/CREATININE RATIO 21.8 (14-18); C-REACTIVE PROTEIN 6.2 mg/dL (<0.30); CALCIUM 9.7 mg/dL (8.5-10.1); CREATININE 1.1 mg/dL (0.55-1.02); EST CRCL DRUG DOSING (CG) 56.64 mL/min; MAGNESIUM 1.6 mg/dL (1.8-2.4); POTASSIUM,K 3.3 mEq/L (3.5-5.1); PROTEIN TOTAL,TP 7.5 g/dl (6.4-8.2)
[2023-10-18] MEDS ORDERED: Naloxone 0.4 MG/ML SDV IVPUSH PRN (13:08)
[2023-10-18] MEDS ORDERED: Ketorolac 30 MG/ML SDV ONE (13:13)
[2023-10-18] MEDS ORDERED: HYDROmorphone 1 MG/ML Syringe ONE (13:14)
[2023-10-18] MEDS: Ketorolac 30 MG/ML SDV IVPUSH ONE (13:16)
[2023-10-18] MEDS: HYDROmorphone 1 MG/ML Syringe IVPUSH ONE (13:17)
[2023-10-18] MEDS: Iopamidol 612 MG/ML 100 ML Bottle IVPUSH ONE (13:59)
[2023-10-18] MEDS ORDERED: Pantoprazole 40 MG Vial ONE (15:37)
[2023-10-18] MEDS ORDERED: Prochlorperazine 10 MG/2 ML SDV ONE (15:37)
[2023-10-18] MEDS: Prochlorperazine 10 MG/2 ML SDV IVPUSH ONE (15:43)
[2023-10-18] MEDS: Pantoprazole 40 MG Vial IVPUSH ONE (15:47)
[2023-10-18] MEDS ORDERED: Lidocaine 2% Viscous Solution 15 ML UD ONE (16:29)
[2023-10-18] MEDS ORDERED: Aluminum Hydroxide/Magnesium Hydroxide/Simethicone Susp 30 ML Cup ONE (16:29)
[2023-10-18] MEDS: Alum Hydrox/Mag Hydrox/Simeth 30 ML, Lidocaine 2% 15 ML PO ONE (16:31)
[2023-10-18] MEDS: Sucralfate Suspension 1 GM/10 ML Cup PO ONE (18:11)
[2023-10-18 18:14] VITALS: BP 136/108; PULSE 86
== END 2023-10-18 18:12 | disposition home or self-care (01) ==
LOC: JD.ED 11:30
DX: K25.9 Gastric ulcer, unspecified as acute or chronic, without hemorrhage or perforation (principal); I11.0 Hypertensive heart disease with heart failure; I50.9 Heart failure, unspecified; K21.9 Gastro-esophageal reflux disease without esophagitis; E78.00 Pure hypercholesterolemia, unspecified; F17.210 Nicotine dependence, cigarettes, uncomplicated; Z88.8 Allergy status to other drugs, medicaments and biological substances; Z79.899 Other long term (current) drug therapy; Z86.16 Personal history of COVID-19; Z90.49 Acquired absence of other specified parts of digestive tract
CPT/HCPCS: 36415; 71046; 74177; 80053; 83690; 83735; 84484; 85025; 86140; 93005; 96361; 96374; 96375; 99284; A9270; J0780; J1170; J1885; J2405; J2470; J3490; J7030; Q9967; 93010

== ENCOUNTER 2023-10-20 19:01 | Emergency (ER) | payer OTHER ==
[2023-10-20 19:58] VITALS: BP 172/132; PULSE 126
[2023-10-20 20:33] LABS: APPEARANCE,URINE SLT CLOUDY (Clear); BILIRUBIN,URINE 1+ (Negative); COLOR,URINE DARK YELLOW (Yellow); GLUCOSE,URINE NEGATIVE (Negative); KETONES,URINE NEGATIVE (Negative); LEUKOCYTE ESTERASE,URINE NEGATIVE (Negative); NITRITE,URINE NEGATIVE (Negative); OCCULT BLOOD,URINE NEGATIVE (Negative); PROTEIN,URINE 1+ (Negative); UROBILINOGEN,URINE 0.2 (0.2-1.0)
[2023-10-20 20:36] LABS: BASOPHILS PERCENT AUTO 0.2 % (0.0-1.0); EOSINOPHILS PERCENT AUTO 0.3 % (0.0-6.0); HEMATOCRIT 39.2 % (37.0-47.0); HEMOGLOBIN 12.2 gm/dl (12.0-16.0); IMMATURE GRAN ABSOLUTE AUTO 0.04 K/mm3 (0.00-0.05); IMMATURE GRAN PERCENT AUTO 0.4 % (0.0-0.4); LYMPHOCYTES ABSOLUTE AUTO 1.8 K/mm3 (1.0-4.8); LYMPHOCYTES PERCENT AUTO 17.1 % (24.0-44.0); MEAN CORPUSCULAR HGB CONC 31.1 g/dl (32.0-36.0); MEAN CORPUSCULAR VOLUME 93.3 fl (83.0-99.0); MEAN PLATELET VOLUME 9.6 fl (9.4-12.3); MONOCYTES ABSOLUTE AUTO 0.9 K/mm3 (0.0-0.8); MONOCYTES PERCENT AUTO 8.3 % (0.0-8.0); NEUTROPHILS ABSOLUTE AUTO 7.7 K/mm3 (1.8-7.7); NEUTROPHILS PERCENT AUTO 73.7 % (41.0-71.0)
[2023-10-20] MEDS: HYDROmorphone 1 MG/ML Syringe IVPUSH ONE (20:39)
[2023-10-20] MEDS: Sodium Chloride 0.9% 1,000 ML IV ONE (20:39)
[2023-10-20] MEDS: Sodium Chloride 0.9% 10 ML Syringe FLUSH PRN (20:41)
[2023-10-20 20:47] LABS: BACTERIA,URINE FEW /hpf (FEW); RBC,URINE 0-5 /hpf (0-5); SQUAMOUS EPITHELIAL CELLS,UR 0-5 /hpf (0-5); WBC,URINE 0-5 /hpf (0-5)
[2023-10-20 20:48] LABS: MUCUS,URINE MANY /hpf (FEW); PLATELET COUNT,PLT 361 K/mm3 (150-400)
[2023-10-20 20:58] LABS: A/G RATIO 0.6 (1-2); ANION GAP 14.1 (5-15); BILIRUBIN TOTAL 0.4 mg/dL (0.2-1.0); BUN/CREATININE RATIO 20.9 (14-18); CALCIUM 9.5 mg/dL (8.5-10.1); CREATININE 1.1 mg/dL (0.55-1.02); EST CRCL DRUG DOSING (CG) 56.64 mL/min; MAGNESIUM 1.9 mg/dL (1.8-2.4); POTASSIUM,K 3.1 mEq/L (3.5-5.1); PROTEIN TOTAL,TP 7.7 g/dl (6.4-8.2)
[2023-10-20 21:01] LABS: LACTIC ACID 1.7 mmol/L (0.4-2.0)
[2023-10-20] MEDS: Iopamidol 612 MG/ML 100 ML Bottle IVPUSH ONE (21:27)
[2023-10-20] MEDS: Ondansetron 4 MG/2 ML SDV IVPUSH ONE (22:44)
[2023-10-21] MEDS: Alum Hydrox/Mag Hydrox/Simeth 30 ML, Lidocaine 2% 15 ML PO ONE (00:44)
== END 2023-10-21 00:40 | disposition home or self-care (01) ==
LOC: JD.ED 19:01
DX: R10.12 Left upper quadrant pain (principal); R10.13 Epigastric pain; F17.210 Nicotine dependence, cigarettes, uncomplicated; I11.0 Hypertensive heart disease with heart failure; I50.9 Heart failure, unspecified; K21.9 Gastro-esophageal reflux disease without esophagitis; Z86.16 Personal history of COVID-19; Z79.899 Other long term (current) drug therapy; Z88.8 Allergy status to other drugs, medicaments and biological substances; Z88.5 Allergy status to narcotic agent
CPT/HCPCS: 36415; 74177; 80053; 81001; 83605; 83690; 83735; 84703; 85025; 87040; 93005; 96361; 96374; 96375; 99284; A9270; J1170; J2405; J3490; J7030; Q9967; 93010

== ENCOUNTER 2023-11-12 21:41 | Emergency (ER) | payer OTHER ==
[2023-11-12] MEDS ORDERED: Sodium Chloride 0.9% 10 ML Syringe FLUSH PRN (22:50)
[2023-11-12 23:11] LABS: BASOPHILS PERCENT AUTO 0.5 % (0.0-1.0); EOSINOPHILS ABSOLUTE AUTO 0.6 K/mm3 (0.0-0.4); EOSINOPHILS PERCENT AUTO 9.2 % (0.0-6.0); HEMATOCRIT 34.8 % (37.0-47.0); HEMOGLOBIN 10.9 gm/dl (12.0-16.0); IMMATURE GRAN ABSOLUTE AUTO 0.02 K/mm3 (0.00-0.05); IMMATURE GRAN PERCENT AUTO 0.3 % (0.0-0.4); LYMPHOCYTES ABSOLUTE AUTO 1.6 K/mm3 (1.0-4.8); MEAN CORPUSCULAR HEMOGLOBIN 28.5 pg (28.0-32.0); MEAN CORPUSCULAR HGB CONC 31.3 g/dl (32.0-36.0); MEAN CORPUSCULAR VOLUME 90.9 fl (83.0-99.0); MEAN PLATELET VOLUME 10.7 fl (9.4-12.3); MONOCYTES ABSOLUTE AUTO 0.7 K/mm3 (0.0-0.8); NEUTROPHILS ABSOLUTE AUTO 3.7 K/mm3 (1.8-7.7); PLATELET COUNT,PLT 284 K/mm3 (150-400); RED BLOOD CELL COUNT 3.83 M/mm3 (4.10-5.30); WHITE BLOOD CELL COUNT,WBC 6.66 K/mm3 (3.9-11.3)
[2023-11-12] MEDS: Alum Hydrox/Mag Hydrox/Simeth 30 ML, Lidocaine 2% 15 ML PO ONE (23:26)
[2023-11-12] MEDS: Sodium Chloride 0.9% 1,000 ML IV ONE (23:26)
[2023-11-12] MEDS: Ondansetron 4 MG/2 ML SDV IVPUSH ONE (23:26)
[2023-11-12] MEDS: Famotidine 20 MG Tab PO ONE (23:26)
[2023-11-12] MEDS: Iopamidol 612 MG/ML 100 ML Bottle IVPUSH ONE (23:27)
[2023-11-12 23:35] LABS: A/G RATIO 0.5 (1-2); ALBUMIN 2.5 g/dl (3.4-5.0); ANION GAP 12.1 (5-15); BILIRUBIN TOTAL 0.3 mg/dL (0.2-1.0); BUN/CREATININE RATIO 17.9 (14-18); CALCIUM 9.3 mg/dL (8.5-10.1); CREATININE 1.4 mg/dL (0.55-1.02); EST CRCL DRUG DOSING (CG) 44.5 mL/min; POTASSIUM,K 4.1 mEq/L (3.5-5.1); PROTEIN TOTAL,TP 7.3 g/dl (6.4-8.2)
[2023-11-13 00:37] LABS: APPEARANCE,URINE CLEAR (Clear); BILIRUBIN,URINE NEGATIVE (Negative); COLOR,URINE YELLOW (Yellow); GLUCOSE,URINE NEGATIVE (Negative); KETONES,URINE NEGATIVE (Negative); LEUKOCYTE ESTERASE,URINE 1+ (Negative); NITRITE,URINE NEGATIVE (Negative); OCCULT BLOOD,URINE NEGATIVE (Negative); PROTEIN,URINE NEGATIVE (Negative)
[2023-11-13 01:18] LABS: BACTERIA,URINE MODERATE /hpf (FEW); HYALINE CASTS,URINE 0-5 /lpf (0-5); MUCUS,URINE NOT SEEN /hpf (FEW); RBC,URINE NOT SEEN /hpf (0-5)
[2023-11-13] MEDS: Ketorolac 15 MG/ML SDV IVPUSH ONE (01:25)
[2023-11-13 02:25] VITALS: BP 115/83; PULSE 88
[2023-11-13] MEDS: Morphine 4 MG/ML Syringe IVPUSH ONE (02:40)
== END 2023-11-13 02:26 | disposition home or self-care (01) ==
LOC: JD.ED 21:41
DX: R10.32 Left lower quadrant pain (principal); D64.9 Anemia, unspecified; R74.8 Abnormal levels of other serum enzymes; R79.89 Other specified abnormal findings of blood chemistry; F17.210 Nicotine dependence, cigarettes, uncomplicated; I11.0 Hypertensive heart disease with heart failure; I50.9 Heart failure, unspecified; K21.9 Gastro-esophageal reflux disease without esophagitis; Z86.16 Personal history of COVID-19; Z79.899 Other long term (current) drug therapy; Z88.8 Allergy status to other drugs, medicaments and biological substances
CPT/HCPCS: 36415; 74177; 80053; 81001; 83690; 85025; 87086; 93005; 96361; 96374; 96375; 99284; A9270; J1885; J2270; J2405; J7030; Q9967

== ENCOUNTER 2023-11-20 14:05 | Emergency (ER) | payer OTHER ==
[2023-11-20 14:47] LABS: BASOPHILS PERCENT AUTO 0.3 % (0.0-1.0); EOSINOPHILS ABSOLUTE AUTO 0.2 K/mm3 (0.0-0.4); EOSINOPHILS PERCENT AUTO 1.9 % (0.0-6.0); HEMATOCRIT 31.9 % (37.0-47.0); HEMOGLOBIN 10.1 gm/dl (12.0-16.0); IMMATURE GRAN ABSOLUTE AUTO 0.06 K/mm3 (0.00-0.05); IMMATURE GRAN PERCENT AUTO 0.5 % (0.0-0.4); LYMPHOCYTES ABSOLUTE AUTO 1.4 K/mm3 (1.0-4.8); MEAN CORPUSCULAR HEMOGLOBIN 28.1 pg (28.0-32.0); MEAN CORPUSCULAR HGB CONC 31.7 g/dl (32.0-36.0); MEAN CORPUSCULAR VOLUME 88.9 fl (83.0-99.0); MEAN PLATELET VOLUME 9.6 fl (9.4-12.3); MONOCYTES ABSOLUTE AUTO 0.9 K/mm3 (0.0-0.8); MONOCYTES PERCENT AUTO 7.8 % (0.0-8.0); NEUTROPHILS ABSOLUTE AUTO 8.9 K/mm3 (1.8-7.7); NEUTROPHILS PERCENT AUTO 77.5 % (41.0-71.0); PLATELET COUNT,PLT 448 K/mm3 (150-400); RED BLOOD CELL COUNT 3.59 M/mm3 (4.10-5.30); WHITE BLOOD CELL COUNT,WBC 11.46 K/mm3 (3.9-11.3)
[2023-11-20 15:03] LABS: APPEARANCE,URINE CLEAR (Clear); BILIRUBIN,URINE 1+ (Negative); COLOR,URINE YELLOW (Yellow); GLUCOSE,URINE NEGATIVE (Negative); KETONES,URINE NEGATIVE (Negative); LEUKOCYTE ESTERASE,URINE NEGATIVE (Negative); NITRITE,URINE NEGATIVE (Negative); OCCULT BLOOD,URINE NEGATIVE (Negative); PROTEIN,URINE NEGATIVE (Negative)
[2023-11-20 15:08] LABS: A/G RATIO 0.4 (1-2); ANION GAP 13.5 (5-15); BILIRUBIN TOTAL 0.4 mg/dL (0.2-1.0); BUN/CREATININE RATIO 20.8 (14-18); CALCIUM 8.8 mg/dL (8.5-10.1); CREATININE 1.2 mg/dL (0.55-1.02); EST CRCL DRUG DOSING (CG) 51.92 mL/min; MAGNESIUM 1.8 mg/dL (1.8-2.4); POTASSIUM,K 4.5 mEq/L (3.5-5.1); PROTEIN TOTAL,TP 6.7 g/dl (6.4-8.2)
[2023-11-20] MEDS ORDERED: Naloxone 0.4 MG/ML SDV IVPUSH PRN (16:22)
[2023-11-20] MEDS: Morphine 4 MG/ML Syringe IVPUSH ONE (17:13)
[2023-11-20 18:02] VITALS: BP 135/93; PULSE 94
== END 2023-11-20 18:00 | disposition home or self-care (01) ==
LOC: JD.ED 14:05
DX: K57.32 Diverticulitis of large intestine without perforation or abscess without bleeding (principal); I11.0 Hypertensive heart disease with heart failure; I50.9 Heart failure, unspecified; K21.9 Gastro-esophageal reflux disease without esophagitis; F17.210 Nicotine dependence, cigarettes, uncomplicated; Z88.8 Allergy status to other drugs, medicaments and biological substances; Z79.899 Other long term (current) drug therapy; Z86.16 Personal history of COVID-19; Z90.49 Acquired absence of other specified parts of digestive tract
CPT/HCPCS: 36415; 76830; 80053; 80307; 81003; 83690; 83735; 85025; 86140; 96374; 99284; J2270

== ENCOUNTER 2023-12-05 19:44 | Emergency (ER) | payer OTHER ==
[2023-12-05] MEDS ORDERED: Naloxone 0.4 MG/ML SDV IVPUSH PRN (20:27)
[2023-12-05 20:33] LABS: BASOPHILS ABSOLUTE AUTO 0.1 K/mm3 (0.0-0.2); BASOPHILS PERCENT AUTO 0.5 % (0.0-1.0); EOSINOPHILS ABSOLUTE AUTO 0.5 K/mm3 (0.0-0.4); HEMATOCRIT 29.4 % (37.0-47.0); HEMOGLOBIN 9.5 gm/dl (12.0-16.0); IMMATURE GRAN ABSOLUTE AUTO 0.04 K/mm3 (0.00-0.05); IMMATURE GRAN PERCENT AUTO 0.4 % (0.0-0.4); LYMPHOCYTES ABSOLUTE AUTO 1.5 K/mm3 (1.0-4.8); LYMPHOCYTES PERCENT AUTO 15.5 % (24.0-44.0); MEAN CORPUSCULAR HEMOGLOBIN 28.2 pg (28.0-32.0); MEAN CORPUSCULAR HGB CONC 32.3 g/dl (32.0-36.0); MEAN CORPUSCULAR VOLUME 87.2 fl (83.0-99.0); MEAN PLATELET VOLUME 9.8 fl (9.4-12.3); MONOCYTES ABSOLUTE AUTO 0.8 K/mm3 (0.0-0.8); MONOCYTES PERCENT AUTO 8.5 % (0.0-8.0); NEUTROPHILS ABSOLUTE AUTO 6.9 K/mm3 (1.8-7.7); NEUTROPHILS PERCENT AUTO 70.1 % (41.0-71.0); PLATELET COUNT,PLT 443 K/mm3 (150-400); RED BLOOD CELL COUNT 3.37 M/mm3 (4.10-5.30); WHITE BLOOD CELL COUNT,WBC 9.85 K/mm3 (3.9-11.3)
[2023-12-05 20:36] LABS: APPEARANCE,URINE CLEAR (Clear); BILIRUBIN,URINE NEGATIVE (Negative); COLOR,URINE YELLOW (Yellow); GLUCOSE,URINE NEGATIVE (Negative); KETONES,URINE TRACE (Negative); LEUKOCYTE ESTERASE,URINE NEGATIVE (Negative); NITRITE,URINE NEGATIVE (Negative); OCCULT BLOOD,URINE NEGATIVE (Negative); PH,URINE 5.5 (5.0-8.0); PROTEIN,URINE NEGATIVE (Negative); UROBILINOGEN,URINE 0.2 (0.2-1.0)
[2023-12-05] MEDS: HYDROmorphone 1 MG/ML Syringe IVPUSH ONE (20:56)
[2023-12-05] MEDS: Ondansetron 4 MG/2 ML SDV IVPUSH ONE (20:56)
[2023-12-05] MEDS: Sodium Chloride 0.9% 10 ML Syringe FLUSH PRN (20:56)
[2023-12-05] MEDS: Diclofenac Sodium 1% Gel 100 GM Tube TOP ONE (21:02)
[2023-12-05 21:22] LABS: CORONAVIRUS COVID-19 NAA NEGATIVE (NEGATIVE); INFLUENZA A NAA NEGATIVE (NEGATIVE); RESPIRATORY SYNCYTIAL VIR NAA NEGATIVE (NEGATIVE)
[2023-12-05 21:28] LABS: A/G RATIO 0.5 (1-2); ALBUMIN 2.2 g/dl (3.4-5.0); BILIRUBIN TOTAL 0.4 mg/dL (0.2-1.0); BUN/CREATININE RATIO 17.8 (14-18); C-REACTIVE PROTEIN 8.43 mg/dL (<0.30); CALCIUM 8.7 mg/dL (8.5-10.1); CREATININE 0.9 mg/dL (0.55-1.02); EST CRCL DRUG DOSING (CG) 69.23 mL/min; MAGNESIUM 1.9 mg/dL (1.8-2.4); PROTEIN TOTAL,TP 6.9 g/dl (6.4-8.2)
[2023-12-05 22:36] VITALS: BP 136/91; PULSE 98
== END 2023-12-05 22:34 | disposition home or self-care (01) ==
LOC: JD.ED 19:44
DX: M94.0 Chondrocostal junction syndrome [Tietze] (principal); R10.13 Epigastric pain; R10.30 Lower abdominal pain, unspecified; I11.0 Hypertensive heart disease with heart failure; I50.9 Heart failure, unspecified; K21.9 Gastro-esophageal reflux disease without esophagitis; Z86.16 Personal history of COVID-19; Z90.49 Acquired absence of other specified parts of digestive tract; Z79.899 Other long term (current) drug therapy; Z88.5 Allergy status to narcotic agent; Z88.8 Allergy status to other drugs, medicaments and biological substances
CPT/HCPCS: 0241U; 36415; 80053; 80307; 81003; 83690; 83735; 84484; 85025; 86140; 93005; 96374; 96375; 99285; A9270; J1170; J2405; J3490; 93010; 99284

== ENCOUNTER 2023-12-19 06:49 | Day surgery (SDC) | payer OTHER ==
[~2023-12-19 06:49] MED LIST: Sodium Chloride 0.9% 10 ML Syringe FLUSH PRN; Sodium Chloride 0.9% 10 ML Syringe FLUSH SCH
[2023-12-19] MEDS ORDERED: Propofol 200 MG/20 ML SDV ONE (06:53)
[2023-12-19] MEDS ORDERED: Lidocaine 2% 5 ML SDV ONE (06:53)
[2023-12-19] MEDS ORDERED: Midazolam 1 MG/ML 2 ML SDV ONE (06:57)
[2023-12-19] MEDS: Lactated Ringers 1,000 ML IV SCH (07:00)
[2023-12-19 08:38] VITALS: BP 114/68; PULSE 75
== END 2023-12-19 08:35 | disposition home or self-care (01) ==
LOC: JD.SDS 06:49
PROVIDERS: ATTEND Surgery
DX: K31.89 Other diseases of stomach and duodenum (principal); K44.9 Diaphragmatic hernia without obstruction or gangrene; I13.0 Hypertensive heart and chronic kidney disease with heart failure and stage 1 through stage 4 chronic kidney disease, or unspecified chronic kidney disease; I50.20 Unspecified systolic (congestive) heart failure; N18.30 Chronic kidney disease, stage 3 unspecified; J44.9 Chronic obstructive pulmonary disease, unspecified; K21.9 Gastro-esophageal reflux disease without esophagitis; F33.1 Major depressive disorder, recurrent, moderate; K85.20 Alcohol induced acute pancreatitis without necrosis or infection; F17.210 Nicotine dependence, cigarettes, uncomplicated; F17.290 Nicotine dependence, other tobacco product, uncomplicated; Z98.84 Bariatric surgery status; Z79.82 Long term (current) use of aspirin; Z79.899 Other long term (current) drug therapy; Z88.8 Allergy status to other drugs, medicaments and biological substances
CPT/HCPCS: 43239; J2250; J2704; J7120; 00731; J3490

== ENCOUNTER 2024-01-21 15:49 | Observation (INO) | payer OTHER ==
[2024-01-21] MEDS ORDERED: Sodium Chloride 0.9% 10 ML Syringe FLUSH PRN ×3 (15:57→16:13)
[2024-01-21] MEDS ORDERED: Sodium Chloride 0.9% 45 ML IV SCH (16:15)
[2024-01-21] MEDS: diphenhydrAMINE 50 MG/ML SDV IVPUSH ONE (16:22)
[2024-01-21] MEDS: methylPREDNISolone Sodium Succinate 125 MG/2 ML SDV IVPUSH ONE (16:22)
[2024-01-21] MEDS: Sodium Chloride 0.9% 500 ML IV ONE (16:22)
[2024-01-21 16:26] LABS: BASOPHILS ABSOLUTE AUTO 0.1 K/mm3 (0.0-0.2); BASOPHILS PERCENT AUTO 1.2 % (0.0-1.0); EOSINOPHILS ABSOLUTE AUTO 0.3 K/mm3 (0.0-0.4); HEMATOCRIT 53.9 % (37.0-47.0); HEMOGLOBIN 17.7 gm/dl (12.0-16.0); LYMPHOCYTES ABSOLUTE AUTO 3.3 K/mm3 (1.0-4.8); MEAN CORPUSCULAR HEMOGLOBIN 28.6 pg (28.0-32.0); MEAN CORPUSCULAR HGB CONC 32.8 g/dl (32.0-36.0); MEAN CORPUSCULAR VOLUME 87.2 fl (83.0-99.0); MEAN PLATELET VOLUME 11.2 fl (9.4-12.3); MONOCYTES ABSOLUTE AUTO 0.3 K/mm3 (0.0-0.8); MONOCYTES PERCENT AUTO 4.9 % (0.0-8.0); NEUTROPHILS ABSOLUTE AUTO 1.2 K/mm3 (1.8-7.7); NEUTROPHILS PERCENT AUTO 22.9 % (41.0-71.0); PLATELET COUNT,PLT 423 K/mm3 (150-400); RED BLOOD CELL COUNT 6.18 M/mm3 (4.10-5.30); WHITE BLOOD CELL COUNT,WBC 5.14 K/mm3 (3.9-11.3)
[2024-01-21 16:51] LABS: LACTIC ACID 2.7 mmol/L (0.4-2.0)
[2024-01-21 16:53] LABS: A/G RATIO 0.5 (1-2); ALBUMIN 2.5 g/dl (3.4-5.0); ANION GAP 18.3 (5-15); BILIRUBIN TOTAL 0.4 mg/dL (0.2-1.0); BUN/CREATININE RATIO 13.8 (14-18); CALCIUM 9.5 mg/dL (8.5-10.1); CREATININE 1.3 mg/dL (0.55-1.02); EST CRCL DRUG DOSING (CG) 47.93 mL/min; PROTEIN TOTAL,TP 7.2 g/dl (6.4-8.2)
[2024-01-21 16:58] LABS: POTASSIUM,K 4.3 mEq/L (3.5-5.1)
[2024-01-21 17:31] LABS: APPEARANCE,URINE CLEAR (Clear); BILIRUBIN,URINE NEGATIVE (Negative); GLUCOSE,URINE NEGATIVE (Negative); KETONES,URINE NEGATIVE (Negative); LEUKOCYTE ESTERASE,URINE NEGATIVE (Negative); NITRITE,URINE NEGATIVE (Negative); OCCULT BLOOD,URINE NEGATIVE (Negative); PH,URINE 6.5 (5.0-8.0); PROTEIN,URINE 1+ (Negative)
[2024-01-21 17:33] LABS: CORONAVIRUS COVID-19 NAA NEGATIVE (NEGATIVE); INFLUENZA A NAA NEGATIVE (NEGATIVE); RESPIRATORY SYNCYTIAL VIR NAA NEGATIVE (NEGATIVE)
[2024-01-21 17:40] LABS: COLOR,URINE AMBER (Yellow)
[2024-01-21 17:41] LABS: RBC,URINE 0-5 /hpf (0-5); SQUAMOUS EPITHELIAL CELLS,UR 0-5 /hpf (0-5); WBC,URINE 0-5 /hpf (0-5)
[2024-01-21 17:42] LABS: BACTERIA,URINE FEW /hpf (FEW); MUCUS,URINE NOT SEEN /hpf (FEW)
[2024-01-21] MEDS: Iopamidol 755 Mg/ML 100 ML Bottle IVPUSH ONE ×2 (18:30)
[2024-01-21] MEDS: Sodium Chloride 0.9% 100 ML IV SCH (18:30)
[2024-01-21] MEDS ORDERED: oxyCODONE 5 MG Tab PO PRN (19:11)
[2024-01-21] MEDS ORDERED: Melatonin 3 MG Tab PO PRN (19:11)
[2024-01-21] MEDS ORDERED: Sennosides/Docusate Sodium 50-8.6 MG Tab PO PRN (19:11)
[2024-01-21] MEDS: Ondansetron 4 MG/2 ML SDV IV PRN (20:23)
[2024-01-22 04:46] LABS: BASOPHILS PERCENT AUTO 0.2 % (0.0-1.0); HEMATOCRIT 42.5 % (37.0-47.0); HEMOGLOBIN 13.3 gm/dl (12.0-16.0); IMMATURE GRAN ABSOLUTE AUTO 0.03 K/mm3 (0.00-0.05); IMMATURE GRAN PERCENT AUTO 0.6 % (0.0-0.4); LYMPHOCYTES ABSOLUTE AUTO 1.3 K/mm3 (1.0-4.8); LYMPHOCYTES PERCENT AUTO 26.3 % (24.0-44.0); MEAN CORPUSCULAR HEMOGLOBIN 28.6 pg (28.0-32.0); MEAN CORPUSCULAR HGB CONC 31.3 g/dl (32.0-36.0); MEAN CORPUSCULAR VOLUME 91.4 fl (83.0-99.0); MEAN PLATELET VOLUME 10.5 fl (9.4-12.3); MONOCYTES ABSOLUTE AUTO 0.1 K/mm3 (0.0-0.8); MONOCYTES PERCENT AUTO 2.3 % (0.0-8.0); NEUTROPHILS ABSOLUTE AUTO 3.4 K/mm3 (1.8-7.7); NEUTROPHILS PERCENT AUTO 70.6 % (41.0-71.0); PLATELET COUNT,PLT 303 K/mm3 (150-400); RED BLOOD CELL COUNT 4.65 M/mm3 (4.10-5.30); WHITE BLOOD CELL COUNT,WBC 4.82 K/mm3 (3.9-11.3)
[2024-01-22] MEDS: Acetaminophen/HYDROcodone 325-5 MG Tab PO PRN (05:10)
[2024-01-22 05:22] LABS: A/G RATIO 0.6 (1-2); ALBUMIN 2.4 g/dl (3.4-5.0); ANION GAP 16.7 (5-15); BILIRUBIN TOTAL 0.4 mg/dL (0.2-1.0); BUN/CREATININE RATIO 12.7 (14-18); C-REACTIVE PROTEIN 0.33 mg/dL (<0.30); CALCIUM 9.2 mg/dL (8.5-10.1); CREATININE 1.5 mg/dL (0.55-1.02); EST CRCL DRUG DOSING (CG) 41.54 mL/min; MAGNESIUM 1.8 mg/dL (1.8-2.4); PHOSPHORUS 5.5 mg/dL (2.6-4.7); POTASSIUM,K 4.7 mEq/L (3.5-5.1); PROTEIN TOTAL,TP 6.5 g/dl (6.4-8.2)
[2024-01-22] MEDS ORDERED: Labetalol 100 MG/20 ML MDV IVPUSH PRN (09:19)
[2024-01-22] MEDS ORDERED: hydrALAZINE 20 MG/ML SDV IVPUSH PRN (09:19)
[2024-01-22] MEDS: Enoxaparin 40 MG/0.4 ML Syringe SUBCUT SCH (09:35)
[2024-01-22] MEDS: Sucralfate Suspension 1 GM/10 ML Cup PO PRN (09:35)
[2024-01-22] MEDS: Carvedilol 12.5 MG Tab PO SCH (09:43)
[2024-01-22] MEDS: buPROPion 150 MG Tab.ER PO SCH (09:43)
[2024-01-22] MEDS: Aspirin 81 MG Tab.EC PO SCH (09:46)
[2024-01-22] MEDS: DULoxetine 20 MG Cap PO SCH (09:46)
[2024-01-22 09:49] LABS: HEMOGLOBIN A1C 4.7 %
[2024-01-22] MEDS: Acetaminophen 325 MG Tab PO PRN (13:21)
[2024-01-22] MEDS: Insulin Lispro 100 Unit/ML 3 ML KwikPen SUBCUT SCH (14:38)
[2024-01-22 15:43] VITALS: BP 134/92; PULSE 90
[2024-01-22] MEDS ORDERED: Pantoprazole 40 MG Tab.CR PO SCH (21:00)
== END 2024-01-22 16:30 | disposition home or self-care (01) ==
LOC: JD.ED 15:49 → JD.MS 17:40
PROVIDERS: ADMIT Student in an Organized Health Care Education/Training Program; ATTEND Student in an Organized Health Care Education/Training Program
DX: T68.XXXA Hypothermia, initial encounter (principal); T45.4X5A Adverse effect of iron and its compounds, initial encounter; D50.9 Iron deficiency anemia, unspecified; I13.0 Hypertensive heart and chronic kidney disease with heart failure and stage 1 through stage 4 chronic kidney disease, or unspecified chronic kidney disease; I50.9 Heart failure, unspecified; N18.9 Chronic kidney disease, unspecified; R55 Syncope and collapse; E87.20 Acidosis, unspecified; D75.1 Secondary polycythemia; D75.839 Thrombocytosis, unspecified; N17.9 Acute kidney failure, unspecified; F17.210 Nicotine dependence, cigarettes, uncomplicated; Z79.899 Other long term (current) drug therapy; Z79.82 Long term (current) use of aspirin; Z20.822 Contact with and (suspected) exposure to COVID-19; Z88.8 Allergy status to other drugs, medicaments and biological substances; Z88.5 Allergy status to narcotic agent
CPT/HCPCS: 0241U; 36415; 71045; 71275; 74177; 80053; 81001; 82550; 83036; 83540; 83605; 83690; 83735; 83880; 84100; 84466; 84484; 84702; 84703; 85025; 86140; 87040; 93005; 93306; 96361; 96365; 96372; 96375; 96376; 99285; A9270; C1758; G0378; J1200; J1650; J2405; J2919; J3475; J3490; J7030; Q9967; 93010; 96374

== ENCOUNTER 2024-02-19 13:34 | Emergency (ER) | payer OTHER ==
[2024-02-19 14:18] LABS: BASOPHILS PERCENT AUTO 0.6 % (0.0-1.0); EOSINOPHILS ABSOLUTE AUTO 0.4 K/mm3 (0.0-0.4); HEMATOCRIT 47.7 % (37.0-47.0); HEMOGLOBIN 15.4 gm/dl (12.0-16.0); IMMATURE GRAN ABSOLUTE AUTO 0.01 K/mm3 (0.00-0.05); IMMATURE GRAN PERCENT AUTO 0.2 % (0.0-0.4); LYMPHOCYTES ABSOLUTE AUTO 2.1 K/mm3 (1.0-4.8); LYMPHOCYTES PERCENT AUTO 43.3 % (24.0-44.0); MEAN CORPUSCULAR HEMOGLOBIN 28.8 pg (28.0-32.0); MEAN CORPUSCULAR HGB CONC 32.3 g/dl (32.0-36.0); MEAN CORPUSCULAR VOLUME 89.2 fl (83.0-99.0); MEAN PLATELET VOLUME 11.5 fl (9.4-12.3); MONOCYTES ABSOLUTE AUTO 0.7 K/mm3 (0.0-0.8); NEUTROPHILS ABSOLUTE AUTO 1.7 K/mm3 (1.8-7.7); NEUTROPHILS PERCENT AUTO 33.9 % (41.0-71.0); PLATELET COUNT,PLT 227 K/mm3 (150-400); RED BLOOD CELL COUNT 5.35 M/mm3 (4.10-5.30); WHITE BLOOD CELL COUNT,WBC 4.87 K/mm3 (3.9-11.3)
[2024-02-19] MEDS: Ondansetron 4 MG/2 ML SDV IVPUSH ONE (14:36)
[2024-02-19] MEDS: Sodium Chloride 0.9% 10 ML Syringe FLUSH PRN (14:36)
[2024-02-19 14:44] LABS: A/G RATIO 0.6 (1-2); ALBUMIN 3.1 g/dl (3.4-5.0); ANION GAP 14.9 (5-15); BILIRUBIN TOTAL 0.3 mg/dL (0.2-1.0); BUN/CREATININE RATIO 15.8 (14-18); C-REACTIVE PROTEIN 2.13 mg/dL (<0.30); CALCIUM 9.5 mg/dL (8.5-10.1); CREATININE 1.9 mg/dL (0.55-1.02); EST CRCL DRUG DOSING (CG) 32.79 mL/min; MAGNESIUM 1.8 mg/dL (1.8-2.4); POTASSIUM,K 3.9 mEq/L (3.5-5.1)
[2024-02-19] MEDS: REMDESIVIR 200 MG in Sodium Chloride 0.9% 250 ML IV ONE (16:18)
[2024-02-19] MEDS: Sodium Chloride 0.9% 500 ML IV SCH (16:19)
[2024-02-19 18:19] VITALS: BP 134/84; PULSE 88
== END 2024-02-19 17:23 | disposition home or self-care (01) ==
LOC: JD.ED 13:34
DX: U07.1 COVID-19 (principal); N28.9 Disorder of kidney and ureter, unspecified; I11.0 Hypertensive heart disease with heart failure; I50.9 Heart failure, unspecified; K21.9 Gastro-esophageal reflux disease without esophagitis; M19.90 Unspecified osteoarthritis, unspecified site; F17.210 Nicotine dependence, cigarettes, uncomplicated; Z86.16 Personal history of COVID-19; Z90.49 Acquired absence of other specified parts of digestive tract; Z88.5 Allergy status to narcotic agent; Z88.8 Allergy status to other drugs, medicaments and biological substances; Z79.82 Long term (current) use of aspirin; Z79.899 Other long term (current) drug therapy
CPT/HCPCS: 36415; 71045; 80053; 83735; 83880; 84484; 85025; 86140; 87428; 93005; 96365; 96375; 99285; J0248; J2405; J3490; J7040; J7050; 93010; 99284

== ENCOUNTER 2024-03-12 15:23 | Emergency (ER) | payer MEDICAID, OTHER ==
[2024-03-12] MEDS ORDERED: Sodium Chloride 0.9% 10 ML Syringe FLUSH PRN (15:43)
[2024-03-12] MEDS: Ondansetron 4 MG/2 ML SDV IVPUSH ONE (16:00)
[2024-03-12] MEDS: Labetalol 100 MG/20 ML MDV IVPUSH ONE (16:00)
[2024-03-12 16:09] LABS: BASOPHILS ABSOLUTE AUTO 0.1 K/mm3 (0.0-0.2); BASOPHILS PERCENT AUTO 0.9 % (0.0-1.0); EOSINOPHILS ABSOLUTE AUTO 0.5 K/mm3 (0.0-0.4); EOSINOPHILS PERCENT AUTO 6.9 % (0.0-6.0); HEMATOCRIT 41.3 % (37.0-47.0); IMMATURE GRAN ABSOLUTE AUTO 0.01 K/mm3 (0.00-0.05); IMMATURE GRAN PERCENT AUTO 0.1 % (0.0-0.4); LYMPHOCYTES ABSOLUTE AUTO 2.4 K/mm3 (1.0-4.8); MEAN CORPUSCULAR HEMOGLOBIN 29.1 pg (28.0-32.0); MEAN CORPUSCULAR HGB CONC 33.9 g/dl (32.0-36.0); MEAN CORPUSCULAR VOLUME 85.9 fl (83.0-99.0); MEAN PLATELET VOLUME 10.9 fl (9.4-12.3); MONOCYTES ABSOLUTE AUTO 0.6 K/mm3 (0.0-0.8); MONOCYTES PERCENT AUTO 9.1 % (0.0-8.0); NEUTROPHILS ABSOLUTE AUTO 3.2 K/mm3 (1.8-7.7); PLATELET COUNT,PLT 275 K/mm3 (150-400); RED BLOOD CELL COUNT 4.81 M/mm3 (4.10-5.30); WHITE BLOOD CELL COUNT,WBC 6.71 K/mm3 (3.9-11.3)
[2024-03-12 16:24] LABS: A/G RATIO 0.7 (1-2); ALBUMIN 3.1 g/dl (3.4-5.0); ANION GAP 11.9 (5-15); BILIRUBIN TOTAL 0.3 mg/dL (0.2-1.0); BUN/CREATININE RATIO 14.5 (14-18); CALCIUM 9.3 mg/dL (8.5-10.1); CREATININE 1.1 mg/dL (0.55-1.02); EST CRCL DRUG DOSING (CG) 56.64 mL/min; POTASSIUM,K 3.9 mEq/L (3.5-5.1); PROTEIN TOTAL,TP 7.7 g/dl (6.4-8.2)
[2024-03-12 18:05] LABS: APPEARANCE,URINE CLEAR (Clear); BILIRUBIN,URINE NEGATIVE (Negative); COLOR,URINE YELLOW (Yellow); GLUCOSE,URINE NEGATIVE (Negative); KETONES,URINE NEGATIVE (Negative); LEUKOCYTE ESTERASE,URINE NEGATIVE (Negative); NITRITE,URINE NEGATIVE (Negative); OCCULT BLOOD,URINE NEGATIVE (Negative); PROTEIN,URINE NEGATIVE (Negative); UROBILINOGEN,URINE 0.2 (0.2-1.0)
[2024-03-12 19:04] VITALS: BP 162/113; PULSE 7
== END 2024-03-12 19:07 | disposition home or self-care (01) ==
LOC: JD.ED 15:23
DX: R07.9 Chest pain, unspecified (principal); I11.0 Hypertensive heart disease with heart failure; I50.9 Heart failure, unspecified; K21.9 Gastro-esophageal reflux disease without esophagitis; E78.00 Pure hypercholesterolemia, unspecified; Z88.8 Allergy status to other drugs, medicaments and biological substances; Z79.82 Long term (current) use of aspirin; Z79.899 Other long term (current) drug therapy; Z86.16 Personal history of COVID-19; Z90.49 Acquired absence of other specified parts of digestive tract
CPT/HCPCS: 36415; 71045; 80053; 81003; 83690; 83880; 84484; 84702; 84703; 85025; 93005; 96374; 96375; 99285; J1920; J2405

== ENCOUNTER 2024-03-25 21:07 | Inpatient (IN) | payer MEDICAID, OTHER ==
[2024-03-25] MEDS ORDERED: Sodium Chloride 0.9% 10 ML Syringe FLUSH PRN (21:16)
[2024-03-25] MEDS: Albuterol/Ipratropium 3.0-0.5 MG/3 ML Neb Soln NEB SCH (21:23)
[2024-03-25 21:38] LABS: BASOPHILS ABSOLUTE AUTO 0.1 K/mm3 (0.0-0.2); BASOPHILS PERCENT AUTO 0.7 % (0.0-1.0); EOSINOPHILS ABSOLUTE AUTO 0.7 K/mm3 (0.0-0.4); EOSINOPHILS PERCENT AUTO 6.8 % (0.0-6.0); HEMATOCRIT 41.2 % (37.0-47.0); HEMOGLOBIN 13.5 gm/dl (12.0-16.0); IMMATURE GRAN ABSOLUTE AUTO 0.03 K/mm3 (0.00-0.05); IMMATURE GRAN PERCENT AUTO 0.3 % (0.0-0.4); LYMPHOCYTES ABSOLUTE AUTO 5.1 K/mm3 (1.0-4.8); LYMPHOCYTES PERCENT AUTO 47.1 % (24.0-44.0); MEAN CORPUSCULAR HEMOGLOBIN 29.2 pg (28.0-32.0); MEAN CORPUSCULAR HGB CONC 32.8 g/dl (32.0-36.0); MEAN CORPUSCULAR VOLUME 89.2 fl (83.0-99.0); MEAN PLATELET VOLUME 10.6 fl (9.4-12.3); MONOCYTES ABSOLUTE AUTO 1.2 K/mm3 (0.0-0.8); MONOCYTES PERCENT AUTO 10.9 % (0.0-8.0); NEUTROPHILS ABSOLUTE AUTO 3.7 K/mm3 (1.8-7.7); NEUTROPHILS PERCENT AUTO 34.2 % (41.0-71.0); PLATELET COUNT,PLT 313 K/mm3 (150-400); RED BLOOD CELL COUNT 4.62 M/mm3 (4.10-5.30); WHITE BLOOD CELL COUNT,WBC 10.91 K/mm3 (3.9-11.3)
[2024-03-25] MEDS: Iopamidol 755 Mg/ML 100 ML Bottle IVPUSH ONE (21:51)
[2024-03-25] MEDS: Sodium Chloride 0.9% 500 ML IV ONE ×2 (21:54→23:38)
[2024-03-25 22:02] LABS: SLIDE REVIEW ABNORMAL SMEAR
[2024-03-25 22:10] LABS: A/G RATIO 0.7 (1-2); ALBUMIN 3.2 g/dl (3.4-5.0); ANION GAP 14.8 (5-15); BILIRUBIN TOTAL 0.3 mg/dL (0.2-1.0); BUN/CREATININE RATIO 14.5 (14-18); CALCIUM 9.2 mg/dL (8.5-10.1); EST CRCL DRUG DOSING (CG) 28.74 mL/min; MAGNESIUM 1.9 mg/dL (1.8-2.4); POTASSIUM,K 3.8 mEq/L (3.5-5.1); PROTEIN TOTAL,TP 7.8 g/dl (6.4-8.2); TSH 3.134 uIU/mL (0.358-3.74)
[2024-03-25 22:15] LABS: BASE EXCESS ARTERIAL -2.6 (-2-2.0); BICARBONATE,ARTERIAL 23.8 meq/L (22.0-26.0); PCO2 ARTERIAL 50.8 mmHg (35.0-45.0)
[2024-03-25 22:16] LABS: LACTIC ACID 3.6 mmol/L (0.4-2.0)
[2024-03-25 22:17] LABS: PRO B-TYPE NATRIUR PEPT,BNPPRO 2654 pg/mL (0-125)
[2024-03-25 22:33] LABS: HCG QUALITATIVE,SERUM NEGATIVE (NEGATIVE)
[2024-03-26 00:10] LABS: APPEARANCE,URINE CLEAR (Clear); BILIRUBIN,URINE NEGATIVE (Negative); COLOR,URINE YELLOW (Yellow); GLUCOSE,URINE NEGATIVE (Negative); KETONES,URINE NEGATIVE (Negative); LEUKOCYTE ESTERASE,URINE NEGATIVE (Negative); NITRITE,URINE NEGATIVE (Negative); OCCULT BLOOD,URINE NEGATIVE (Negative); PROTEIN,URINE NEGATIVE (Negative); UROBILINOGEN,URINE 0.2 (0.2-1.0)
[2024-03-26 00:18] LABS: BARBITURATE SCREEN,URINE NEGATIVE (CUTOFF=200); BENZODIAZEPINES SCREEN,URINE NEGATIVE (CUTOFF=150); BUPRENORPHINE SCREEN,URINE NEGATIVE (CUTOFF=10); METHADONE SCREEN, URINE NEGATIVE (CUTOFF=200); METHAMPHETAMINES SCREEN, URINE NEGATIVE (CUTOFF=500); OXYCODONE SCREEN,URINE NEGATIVE (CUT0FF=100); THC SCREEN,URINE 20 NG/ML PRESUMPTIVE POSITIVE (CUTOFF=50)
[2024-03-26 00:22] LABS: AMPHETAMINES SCREEN, URINE PRESUMPTIVE POSITIVE (CUTOFF=500)
[2024-03-26 04:40] LABS: BASOPHILS ABSOLUTE AUTO 0.1 K/mm3 (0.0-0.2); EOSINOPHILS ABSOLUTE AUTO 0.3 K/mm3 (0.0-0.4); EOSINOPHILS PERCENT AUTO 4.6 % (0.0-6.0); HEMATOCRIT 37.1 % (37.0-47.0); HEMOGLOBIN 12.6 gm/dl (12.0-16.0); IMMATURE GRAN ABSOLUTE AUTO 0.02 K/mm3 (0.00-0.05); IMMATURE GRAN PERCENT AUTO 0.3 % (0.0-0.4); LYMPHOCYTES ABSOLUTE AUTO 1.8 K/mm3 (1.0-4.8); LYMPHOCYTES PERCENT AUTO 25.2 % (24.0-44.0); MEAN CORPUSCULAR HEMOGLOBIN 29.4 pg (28.0-32.0); MEAN CORPUSCULAR VOLUME 86.5 fl (83.0-99.0); MEAN PLATELET VOLUME 10.2 fl (9.4-12.3); MONOCYTES ABSOLUTE AUTO 0.7 K/mm3 (0.0-0.8); MONOCYTES PERCENT AUTO 9.2 % (0.0-8.0); NEUTROPHILS ABSOLUTE AUTO 4.3 K/mm3 (1.8-7.7); NEUTROPHILS PERCENT AUTO 59.7 % (41.0-71.0); PLATELET COUNT,PLT 242 K/mm3 (150-400); RED BLOOD CELL COUNT 4.29 M/mm3 (4.10-5.30); WHITE BLOOD CELL COUNT,WBC 7.18 K/mm3 (3.9-11.3)
[2024-03-26 05:19] LABS: A/G RATIO 0.7 (1-2); ALBUMIN 2.8 g/dl (3.4-5.0); ANION GAP 15.6 (5-15); BILIRUBIN TOTAL 0.3 mg/dL (0.2-1.0); BUN/CREATININE RATIO 16.9 (14-18); CALCIUM 8.6 mg/dL (8.5-10.1); CREATININE 1.6 mg/dL (0.55-1.02); EST CRCL DRUG DOSING (CG) 38.94 mL/min; PHOSPHORUS 4.5 mg/dL (2.6-4.7); POTASSIUM,K 3.6 mEq/L (3.5-5.1); PROTEIN TOTAL,TP 6.8 g/dl (6.4-8.2)
[2024-03-26] MEDS: Sodium Chloride 0.9% 1,000 ML IV ONE (07:48)
[2024-03-26 08:29] VITALS: BP 120/80; PULSE 90
[2024-03-26] MEDS ORDERED: Lactated Ringers 1,000 ML IV SCH (09:15)
[2024-03-26] MEDS: Potassium Chloride 20 MEQ Tab.ER PO ONE (09:56)
[2024-03-26] MEDS: Albuterol 6.7 GM Inhaler INH PRN (14:17)
== END 2024-03-26 15:16 | disposition home or self-care (01) | DRG 682 ==
LOC: JD.ED 21:07 → JD.MS 23:38
PROVIDERS: ADMIT Student in an Organized Health Care Education/Training Program; ATTEND Student in an Organized Health Care Education/Training Program
DX: N17.9 Acute kidney failure, unspecified (principal); J96.01 Acute respiratory failure with hypoxia; I50.22 Chronic systolic (congestive) heart failure; E87.20 Acidosis, unspecified; I11.0 Hypertensive heart disease with heart failure; D50.9 Iron deficiency anemia, unspecified; F12.90 Cannabis use, unspecified, uncomplicated; H54.7 Unspecified visual loss; E78.00 Pure hypercholesterolemia, unspecified; K21.9 Gastro-esophageal reflux disease without esophagitis; M19.90 Unspecified osteoarthritis, unspecified site; F41.9 Anxiety disorder, unspecified; F32.A Depression, unspecified; F17.210 Nicotine dependence, cigarettes, uncomplicated; J45.909 Unspecified asthma, uncomplicated; F15.90 Other stimulant use, unspecified, uncomplicated; F11.90 Opioid use, unspecified, uncomplicated; N20.0 Calculus of kidney; Z86.16 Personal history of COVID-19; Z90.89 Acquired absence of other organs; Z90.49 Acquired absence of other specified parts of digestive tract; Z98.84 Bariatric surgery status; Z88.8 Allergy status to other drugs, medicaments and biological substances; Z79.82 Long term (current) use of aspirin; Z87.11 Personal history of peptic ulcer disease; Z87.442 Personal history of urinary calculi; Z79.51 Long term (current) use of inhaled steroids; Z79.899 Other long term (current) drug therapy; Z98.890 Other specified postprocedural states; Z90.710 Acquired absence of both cervix and uterus
CPT/HCPCS: 36415; 36600; 70450; 70450-26; 71045; 71045-26; 71275; 71275-26; 72125; 72125-26; 74177; 74177-26; 80053; 80143; 80179; 80306; 80307; 81003; 82140; 82550; 82803; 83605; 83690; 83735; 83880; 83930; 84100; 84443; 84484; 84703; 85025; 87040; 87428-QW; 93005; 94640; 94660; 94761; A9270-GY; J7030; J7620-GY; Q9967

== ENCOUNTER 2024-04-25 04:27 | Inpatient (IN) | payer MEDICAID ==
[2024-04-25] MEDS ORDERED: Sodium Chloride 0.9% 10 ML Syringe FLUSH PRN (04:34)
[2024-04-25 04:40] LABS: BASOPHILS ABSOLUTE AUTO 0.1 K/mm3 (0.0-0.2); BASOPHILS PERCENT AUTO 0.7 % (0.0-1.0); EOSINOPHILS ABSOLUTE AUTO 0.7 K/mm3 (0.0-0.4); EOSINOPHILS PERCENT AUTO 5.1 % (0.0-6.0); HEMATOCRIT 44.4 % (37.0-47.0); HEMOGLOBIN 13.3 gm/dl (12.0-16.0); IMMATURE GRAN ABSOLUTE AUTO 0.03 K/mm3 (0.00-0.05); IMMATURE GRAN PERCENT AUTO 0.2 % (0.0-0.4); LYMPHOCYTES ABSOLUTE AUTO 6.8 K/mm3 (1.0-4.8); MEAN CORPUSCULAR HEMOGLOBIN 28.5 pg (28.0-32.0); MEAN CORPUSCULAR VOLUME 95.3 fl (83.0-99.0); MEAN PLATELET VOLUME 10.6 fl (9.4-12.3); MONOCYTES ABSOLUTE AUTO 1.5 K/mm3 (0.0-0.8); MONOCYTES PERCENT AUTO 10.3 % (0.0-8.0); NEUTROPHILS ABSOLUTE AUTO 5.3 K/mm3 (1.8-7.7); NEUTROPHILS PERCENT AUTO 36.7 % (41.0-71.0); PLATELET COUNT,PLT 312 K/mm3 (150-400); RED BLOOD CELL COUNT 4.66 M/mm3 (4.10-5.30); WHITE BLOOD CELL COUNT,WBC 14.52 K/mm3 (3.9-11.3)
[2024-04-25] MEDS: Magnesium Sulfate/Water Premix 2 GM in Premix Bag 1 BAG IV ONE (04:43)
[2024-04-25] MEDS: methylPREDNISolone Sodium Succinate 125 MG/2 ML SDV IVPUSH ONE (04:43)
[2024-04-25] MEDS: Albuterol/Ipratropium 3.0-0.5 MG/3 ML Neb Soln NEB ONE (04:58)
[2024-04-25 05:02] LABS: HCG QUALITATIVE,SERUM POSITIVE (NEGATIVE)
[2024-04-25 05:07] LABS: LACTIC ACID 5.2 mmol/L (0.4-2.0)
[2024-04-25 05:10] LABS: A/G RATIO 0.7 (1-2); ALANINE AMINOTRANSFERASE,ALT 19 U/L (14-59); ALBUMIN 3.1 g/dl (3.4-5.0); ALKALINE PHOSPHATASE 141 U/L (46-116); ANION GAP 16.6 (5-15); ASPARTATE AMNIOTRANSFERASE,AST 28 U/L (15-37); BILIRUBIN TOTAL 0.3 mg/dL (0.2-1.0); BLOOD UREA NITROGEN,BUN 25 mg/dL (7-18); BUN/CREATININE RATIO 16.7 (14-18); CALCIUM 9.1 mg/dL (8.5-10.1); CARBON DIOXIDE,CO2 23 mEq/L (21-32); CHLORIDE,CL 105 mEq/L (98-107); CREATININE 1.5 mg/dL (0.55-1.02); ESTIMATED GFR 42 mL/min (>60); GLUCOSE RANDOM 234 mg/dL (70-99); LIPASE 16 U/L (16-77); MAGNESIUM 2.2 mg/dL (1.8-2.4); PROTEIN TOTAL,TP 7.4 g/dl (6.4-8.2); SODIUM,NA 140 mEq/L (136-145); TROPONIN I HIGH SENSITIVITY 12 pg/mL (<=51)
[2024-04-25 05:14] LABS: ACETAMINOPHEN 0 ug/mL (10-30)
[2024-04-25 05:15] LABS: POTASSIUM,K 4.6 mEq/L (3.5-5.1); PRO B-TYPE NATRIUR PEPT,BNPPRO 3350 pg/mL (0-125)
[2024-04-25 05:17] LABS: APPEARANCE,URINE CLEAR (Clear); BILIRUBIN,URINE NEGATIVE (Negative); COLOR,URINE LIGHT YELLOW (Yellow); GLUCOSE,URINE NEGATIVE (Negative); KETONES,URINE NEGATIVE (Negative); LEUKOCYTE ESTERASE,URINE NEGATIVE (Negative); NITRITE,URINE POSITIVE (Negative); OCCULT BLOOD,URINE NEGATIVE (Negative); PH,URINE 5.5 (5.0-8.0); PROTEIN,URINE NEGATIVE (Negative); UROBILINOGEN,URINE 0.2 (0.2-1.0)
[2024-04-25 05:19] LABS: BARBITURATE SCREEN,URINE NEGATIVE (CUTOFF=200); BENZODIAZEPINES SCREEN,URINE NEGATIVE (CUTOFF=150); BUPRENORPHINE SCREEN,URINE NEGATIVE (CUTOFF=10); METHADONE SCREEN, URINE NEGATIVE (CUTOFF=200); METHAMPHETAMINES SCREEN, URINE NEGATIVE (CUTOFF=500); OXYCODONE SCREEN,URINE NEGATIVE (CUT0FF=100); THC SCREEN,URINE 20 NG/ML PRESUMPTIVE POSITIVE (CUTOFF=50)
[2024-04-25 05:26] LABS: AMPHETAMINES SCREEN, URINE PRESUMPTIVE POSITIVE (CUTOFF=500)
[2024-04-25 05:27] LABS: CORONAVIRUS COVID-19 NAA NEGATIVE (NEGATIVE); INFLUENZA A NAA NEGATIVE (NEGATIVE); RESPIRATORY SYNCYTIAL VIR NAA NEGATIVE (NEGATIVE)
[2024-04-25] MEDS ORDERED: Albuterol 0.083% 2.5 MG/3 ML Neb Soln NEB PRN (05:27)
[2024-04-25 05:28] LABS: BASE EXCESS ARTERIAL -6.3 (-2-2.0); BICARBONATE,ARTERIAL 19.5 meq/L (22.0-26.0); O2 SATURATION ARTERIAL 94.9 % (96.0-97.0); PCO2 ARTERIAL 41.8 mmHg (35.0-45.0)
[2024-04-25 05:39] LABS: BACTERIA,URINE MANY /hpf (FEW); FINE GRANULAR CASTS,URINE 0-5 /lpf (0-5); MUCUS,URINE NOT SEEN /hpf (FEW); RBC,URINE 0-5 /hpf (0-5); SQUAMOUS EPITHELIAL CELLS,UR NOT SEEN /hpf (0-5)
[2024-04-25] MEDS: Albuterol/Ipratropium 3.0-0.5 MG/3 ML Neb Soln NEB SCH (06:25)
[2024-04-25] MEDS: Levofloxacin/Dextrose 5%-Water 750 MG in Premix Bag 1 BAG IV SCH (08:08)
[2024-04-25] MEDS: Acetaminophen 325 MG Tab PO PRN (11:17)
[2024-04-25] MEDS: Ondansetron 4 MG/2 ML SDV IVPUSH PRN (12:12)
[2024-04-25] MEDS: methylPREDNISolone Sodium Succinate 40 MG/1 ML SDV IVPUSH SCH (12:18)
[2024-04-25] MEDS: Carvedilol 12.5 MG Tab PO SCH (16:41)
[2024-04-25] MEDS: Acetaminophen/HYDROcodone 325-5 MG Tab PO PRN (17:26)
[2024-04-25] MEDS: buPROPion 150 MG Tab.ER PO SCH (20:05)
[2024-04-26 05:36] LABS: BASOPHILS PERCENT AUTO 0.1 % (0.0-1.0); HEMATOCRIT 39.6 % (37.0-47.0); HEMOGLOBIN 12.6 gm/dl (12.0-16.0); IMMATURE GRAN ABSOLUTE AUTO 0.07 K/mm3 (0.00-0.05); IMMATURE GRAN PERCENT AUTO 0.5 % (0.0-0.4); LYMPHOCYTES ABSOLUTE AUTO 1.2 K/mm3 (1.0-4.8); LYMPHOCYTES PERCENT AUTO 8.4 % (24.0-44.0); MEAN CORPUSCULAR HEMOGLOBIN 28.5 pg (28.0-32.0); MEAN CORPUSCULAR HGB CONC 31.8 g/dl (32.0-36.0); MEAN PLATELET VOLUME 10.5 fl (9.4-12.3); MONOCYTES ABSOLUTE AUTO 0.3 K/mm3 (0.0-0.8); MONOCYTES PERCENT AUTO 2.3 % (0.0-8.0); NEUTROPHILS ABSOLUTE AUTO 12.9 K/mm3 (1.8-7.7); NEUTROPHILS PERCENT AUTO 88.7 % (41.0-71.0); PLATELET COUNT,PLT 255 K/mm3 (150-400); RED BLOOD CELL COUNT 4.42 M/mm3 (4.10-5.30); WHITE BLOOD CELL COUNT,WBC 14.55 K/mm3 (3.9-11.3)
[2024-04-26 05:43] LABS: MEAN CORPUSCULAR VOLUME 89.6 fl (83.0-99.0)
[2024-04-26 06:10] LABS: A/G RATIO 0.7 (1-2); ANION GAP 13.8 (5-15); BILIRUBIN TOTAL 0.5 mg/dL (0.2-1.0); CALCIUM 9.3 mg/dL (8.5-10.1); CREATININE 1.6 mg/dL (0.55-1.02); EST CRCL DRUG DOSING (CG) 38.94 mL/min; POTASSIUM,K 4.8 mEq/L (3.5-5.1); PROTEIN TOTAL,TP 7.2 g/dl (6.4-8.2)
[2024-04-26] MEDS: Aspirin 81 MG Tab.EC PO SCH (09:11)
[2024-04-26] MEDS: Pantoprazole 40 MG Tab.CR PO SCH (09:12)
[2024-04-26] MEDS: Lisinopril 10 MG Tab PO SCH (09:12)
[2024-04-26] MEDS: Enoxaparin 40 MG/0.4 ML Syringe SUBCUT SCH (09:12)
[2024-04-26] MEDS: DULoxetine 30 MG Cap PO SCH (09:12)
[2024-04-26] MEDS: Formoterol/Mometasone 100-5 MCG 8.8 GM Inhaler INH SCH (09:31)
[2024-04-27 05:46] LABS: BASOPHILS PERCENT AUTO 0.1 % (0.0-1.0); EOSINOPHILS ABSOLUTE AUTO 0.1 K/mm3 (0.0-0.4); EOSINOPHILS PERCENT AUTO 0.6 % (0.0-6.0); HEMATOCRIT 37.8 % (37.0-47.0); IMMATURE GRAN ABSOLUTE AUTO 0.12 K/mm3 (0.00-0.05); IMMATURE GRAN PERCENT AUTO 0.8 % (0.0-0.4); LYMPHOCYTES ABSOLUTE AUTO 0.7 K/mm3 (1.0-4.8); LYMPHOCYTES PERCENT AUTO 4.9 % (24.0-44.0); MEAN CORPUSCULAR HEMOGLOBIN 28.4 pg (28.0-32.0); MEAN CORPUSCULAR HGB CONC 31.7 g/dl (32.0-36.0); MEAN CORPUSCULAR VOLUME 89.6 fl (83.0-99.0); MEAN PLATELET VOLUME 10.7 fl (9.4-12.3); MONOCYTES ABSOLUTE AUTO 0.2 K/mm3 (0.0-0.8); MONOCYTES PERCENT AUTO 1.6 % (0.0-8.0); NEUTROPHILS ABSOLUTE AUTO 13.4 K/mm3 (1.8-7.7); PLATELET COUNT,PLT 234 K/mm3 (150-400); RED BLOOD CELL COUNT 4.22 M/mm3 (4.10-5.30); WHITE BLOOD CELL COUNT,WBC 14.55 K/mm3 (3.9-11.3)
[2024-04-27 06:09] LABS: SLIDE REVIEW ABNORMAL SMEAR
[2024-04-27 06:13] LABS: A/G RATIO 0.7 (1-2); ANION GAP 14.6 (5-15); BILIRUBIN TOTAL 0.4 mg/dL (0.2-1.0); BUN/CREATININE RATIO 28.6 (14-18); CALCIUM 9.4 mg/dL (8.5-10.1); CREATININE 1.4 mg/dL (0.55-1.02); EST CRCL DRUG DOSING (CG) 44.5 mL/min; POTASSIUM,K 4.6 mEq/L (3.5-5.1); PROTEIN TOTAL,TP 7.1 g/dl (6.4-8.2)
[2024-04-27 06:51] VITALS: PULSE 75
[2024-04-27] MEDS: Levofloxacin/Dextrose 5%-Water 750 MG in Premix Bag 1 BAG IV SCH (08:38)
[2024-04-27 08:39] VITALS: BP 166/102
[2024-04-27] MEDS: Spironolactone 25 MG Tab PO SCH (10:25)
[2024-04-27] MEDS ORDERED: buPROPion 150 MG Tab.SR PO SCH (21:00)
== END 2024-04-27 11:08 | disposition home or self-care (01) | DRG 189 ==
LOC: JD.ED 04:27 → JD.ICU 07:34 → JD.MS 04-26 09:35
PROVIDERS: ADMIT Family Medicine; ATTEND Family Medicine
PROC: 5A09357 Assistance with Respiratory Ventilation, Less than 24 Consecutive Hours, Continuous Positive Airway Pressure (ICD-10-PCS; principal; 2024-04-25)
PROC: 4A033R1 Measurement of Arterial Saturation, Peripheral, Percutaneous Approach (ICD-10-PCS; 2024-04-25)
DX: J96.01 Acute respiratory failure with hypoxia (principal); J44.1 Chronic obstructive pulmonary disease with (acute) exacerbation; N17.9 Acute kidney failure, unspecified; I50.22 Chronic systolic (congestive) heart failure; I13.0 Hypertensive heart and chronic kidney disease with heart failure and stage 1 through stage 4 chronic kidney disease, or unspecified chronic kidney disease; J44.89 Other specified chronic obstructive pulmonary disease; E78.00 Pure hypercholesterolemia, unspecified; K21.9 Gastro-esophageal reflux disease without esophagitis; F17.210 Nicotine dependence, cigarettes, uncomplicated; J30.9 Allergic rhinitis, unspecified; H54.7 Unspecified visual loss; J32.9 Chronic sinusitis, unspecified; M19.90 Unspecified osteoarthritis, unspecified site; G43.909 Migraine, unspecified, not intractable, without status migrainosus; D50.9 Iron deficiency anemia, unspecified; F12.90 Cannabis use, unspecified, uncomplicated; F15.90 Other stimulant use, unspecified, uncomplicated; N18.32 Chronic kidney disease, stage 3b; F41.8 Other specified anxiety disorders; F90.9 Attention-deficit hyperactivity disorder, unspecified type; D63.1 Anemia in chronic kidney disease; Z88.8 Allergy status to other drugs, medicaments and biological substances; Z79.82 Long term (current) use of aspirin; Z79.1 Long term (current) use of non-steroidal anti-inflammatories (NSAID); Z79.899 Other long term (current) drug therapy; Z79.51 Long term (current) use of inhaled steroids; Z87.440 Personal history of urinary (tract) infections; Z87.442 Personal history of urinary calculi; Z86.16 Personal history of COVID-19; Z90.89 Acquired absence of other organs; Z98.890 Other specified postprocedural states; Z98.84 Bariatric surgery status; Z90.49 Acquired absence of other specified parts of digestive tract
CPT/HCPCS: 0241U; 36415; 36600; 71045; 71045-26; 80053; 80143; 80179; 80306; 80307; 81001; 82803; 82947; 83605; 83690; 83735; 83880; 84484; 84702; 84703; 85025; 87040; 87086; 87088; 87186; 93005; 93010; 94640; 94660; 94761; 94762; 99291; 99292; A9270-GY; C1758; J1650; J1956; J2405; J2919; J3475; J7620-GY

== ENCOUNTER 2024-06-23 13:29 | Inpatient (IN) | payer MEDICAID, OTHER ==
[2024-06-23 14:39] LABS: BASOPHILS PERCENT AUTO 0.4 % (0.0-1.0); EOSINOPHILS ABSOLUTE AUTO 0.3 K/mm3 (0.0-0.4); EOSINOPHILS PERCENT AUTO 3.3 % (0.0-6.0); HEMATOCRIT 36.4 % (37.0-47.0); HEMOGLOBIN 11.4 gm/dl (12.0-16.0); IMMATURE GRAN ABSOLUTE AUTO 0.03 K/mm3 (0.00-0.05); IMMATURE GRAN PERCENT AUTO 0.4 % (0.0-0.4); LYMPHOCYTES ABSOLUTE AUTO 1.7 K/mm3 (1.0-4.8); LYMPHOCYTES PERCENT AUTO 22.8 % (24.0-44.0); MEAN CORPUSCULAR HEMOGLOBIN 29.2 pg (28.0-32.0); MEAN CORPUSCULAR HGB CONC 31.3 g/dl (32.0-36.0); MEAN CORPUSCULAR VOLUME 93.1 fl (83.0-99.0); MEAN PLATELET VOLUME 9.6 fl (9.4-12.3); MONOCYTES PERCENT AUTO 13.4 % (0.0-8.0); NEUTROPHILS ABSOLUTE AUTO 4.5 K/mm3 (1.8-7.7); NEUTROPHILS PERCENT AUTO 59.7 % (41.0-71.0); PLATELET COUNT,PLT 267 K/mm3 (150-400); RED BLOOD CELL COUNT 3.91 M/mm3 (4.10-5.30); WHITE BLOOD CELL COUNT,WBC 7.53 K/mm3 (3.9-11.3)
[2024-06-23 15:06] LABS: A/G RATIO 0.6 (1-2); ALBUMIN 2.9 g/dl (3.4-5.0); ANION GAP 15.5 (5-15); BILIRUBIN TOTAL 0.4 mg/dL (0.2-1.0); BUN/CREATININE RATIO 39.1 (14-18); CALCIUM 9.2 mg/dL (8.5-10.1); CREATININE 2.2 mg/dL (0.55-1.02); EST CRCL DRUG DOSING (CG) 28.32 mL/min; MAGNESIUM 2.7 mg/dL (1.8-2.4); POTASSIUM,K 5.5 mEq/L (3.5-5.1); PROTEIN TOTAL,TP 7.5 g/dl (6.4-8.2)
[2024-06-23] MEDS: Sodium Chloride 0.9% 500 ML IV ONE (15:22)
[2024-06-23] MEDS: Metoclopramide 10 MG/2 ML SDV IVPUSH ONE (15:22)
[2024-06-23 15:28] LABS: APPEARANCE,URINE CLEAR (Clear); BILIRUBIN,URINE NEGATIVE (Negative); COLOR,URINE YELLOW (Yellow); GLUCOSE,URINE NEGATIVE (Negative); KETONES,URINE NEGATIVE (Negative); LEUKOCYTE ESTERASE,URINE NEGATIVE (Negative); NITRITE,URINE NEGATIVE (Negative); OCCULT BLOOD,URINE NEGATIVE (Negative); PH,URINE 5.5 (5.0-8.0); PROTEIN,URINE TRACE (Negative); UROBILINOGEN,URINE 0.2 (0.2-1.0)
[2024-06-23 16:13] LABS: RBC,URINE 0-5 /hpf (0-5); WBC,URINE 0-5 /hpf (0-5)
[2024-06-23 16:14] LABS: BACTERIA,URINE FEW /hpf (FEW); MUCUS,URINE FEW /hpf (FEW); SQUAMOUS EPITHELIAL CELLS,UR 0-5 /hpf (0-5)
[2024-06-23 17:03] LABS: ANION GAP 14.6 (5-15); BUN/CREATININE RATIO 37.4 (14-18); CALCIUM 9.4 mg/dL (8.5-10.1); CREATININE 2.3 mg/dL (0.55-1.02); EST CRCL DRUG DOSING (CG) 27.09 mL/min; POTASSIUM,K 5.6 mEq/L (3.5-5.1)
[2024-06-23 19:44] LABS: C-REACTIVE PROTEIN 16.7 mg/dL (<0.30); URIC ACID 9.3 mg/dL (2.6-6.0)
[2024-06-23] MEDS: Diclofenac Sodium 1% Gel 100 GM Tube TOP SCH (19:49)
[2024-06-23] MEDS: Acetaminophen 325 MG Tab PO PRN (19:49)
[2024-06-23] MEDS: Sodium Chloride 0.9% 1,000 ML IV SCH (19:50)
[2024-06-23] MEDS: Formoterol/Mometasone 100-5 MCG 8.8 GM Inhaler INH SCH (20:29)
[2024-06-24 04:39] LABS: BASOPHILS PERCENT AUTO 0.5 % (0.0-1.0); EOSINOPHILS ABSOLUTE AUTO 0.2 K/mm3 (0.0-0.4); EOSINOPHILS PERCENT AUTO 3.7 % (0.0-6.0); HEMATOCRIT 32.4 % (37.0-47.0); HEMOGLOBIN 10.1 gm/dl (12.0-16.0); IMMATURE GRAN ABSOLUTE AUTO 0.03 K/mm3 (0.00-0.05); IMMATURE GRAN PERCENT AUTO 0.5 % (0.0-0.4); LYMPHOCYTES ABSOLUTE AUTO 1.9 K/mm3 (1.0-4.8); LYMPHOCYTES PERCENT AUTO 32.2 % (24.0-44.0); MEAN CORPUSCULAR HEMOGLOBIN 29.3 pg (28.0-32.0); MEAN CORPUSCULAR HGB CONC 31.2 g/dl (32.0-36.0); MEAN CORPUSCULAR VOLUME 93.9 fl (83.0-99.0); MONOCYTES ABSOLUTE AUTO 1.1 K/mm3 (0.0-0.8); MONOCYTES PERCENT AUTO 19.7 % (0.0-8.0); NEUTROPHILS ABSOLUTE AUTO 2.5 K/mm3 (1.8-7.7); NEUTROPHILS PERCENT AUTO 43.4 % (41.0-71.0); PLATELET COUNT,PLT 239 K/mm3 (150-400); RED BLOOD CELL COUNT 3.45 M/mm3 (4.10-5.30); WHITE BLOOD CELL COUNT,WBC 5.74 K/mm3 (3.9-11.3)
[2024-06-24 05:08] LABS: ANION GAP 14.8 (5-15); BUN/CREATININE RATIO 41.9 (14-18); CALCIUM 8.6 mg/dL (8.5-10.1); CREATININE 1.6 mg/dL (0.55-1.02); EST CRCL DRUG DOSING (CG) 38.94 mL/min; POTASSIUM,K 5.8 mEq/L (3.5-5.1)
[2024-06-24] MEDS: Carvedilol 12.5 MG Tab PO SCH (07:38)
[2024-06-24] MEDS: Aspirin 81 MG Tab.EC PO SCH (08:11)
[2024-06-24] MEDS: 50% Dextrose in Water 50 ML Syringe IVPUSH ONE ×3 (08:58→21:23)
[2024-06-24] MEDS: Insulin Regular, Human 100 Units/ML 10 ML Vial IV ONE ×3 (08:58→21:23)
[2024-06-24 11:14] LABS: BODY FLUID TYPE SYNOVIAL FLUID; SITE,SYNOVIAL FLUID LEFT KNEE; VOLUME SYNOVIAL FLUID 40
[2024-06-24 11:15] LABS: APPEARANCE SYNOVIAL FLUID CLOUDY (CLEAR); COLOR,SYNOVIAL FLUID YELLOW
[2024-06-24 12:19] LABS: RBC,SYNOVIAL FLUID 4000 cells/uL (0-0); WBC,SYNOVIAL FLUID 12755 cells/uL (0-200)
[2024-06-24 12:25] LABS: GLUCOSE,BODY FLUID 63 mg/dL
[2024-06-24] MEDS: Acetaminophen/HYDROcodone 325-5 MG Tab PO PRN (12:28)
[2024-06-24] MEDS: Enoxaparin 40 MG/0.4 ML Syringe SUBCUT SCH (12:35)
[2024-06-24 12:42] LABS: BODY FLUID TYPE SYNOVIAL FLUID; PROTEIN,BODY FLUID 4.2 gm/dl
[2024-06-24] MEDS: methylPREDNISolone Sodium Succinate 40 MG/1 ML SDV IVPUSH SCH (13:44)
[2024-06-24 15:10] LABS: ANION GAP 14.1 (5-15); CALCIUM 9.5 mg/dL (8.5-10.1); CREATININE 1.4 mg/dL (0.55-1.02); EST CRCL DRUG DOSING (CG) 44.5 mL/min
[2024-06-24 15:20] LABS: POTASSIUM,K 6.1 mEq/L (3.5-5.1)
[2024-06-24] MEDS: Sodium Zirconium Cyclosilicate 10 GM Packet PO SCH (15:57)
[2024-06-24] MEDS ORDERED: Ondansetron 4 MG Tab.DIS PO PRN (18:44)
[2024-06-24 20:35] LABS: ANION GAP 13.6 (5-15); CALCIUM 8.8 mg/dL (8.5-10.1); CREATININE 1.5 mg/dL (0.55-1.02); EST CRCL DRUG DOSING (CG) 41.54 mL/min
[2024-06-24 20:57] LABS: POTASSIUM,K 6.6 mEq/L (3.5-5.1)
[2024-06-24] MEDS: Calcium Gluconate 10% 1 GM/10 ML SDV IVPUSH ONE (21:22)
[2024-06-24] MEDS: Sodium Chloride 0.9% 1,000 ML IV SCH (22:13)
[2024-06-25] MEDS: Acetaminophen 325 MG Tab PO PRN (04:26)
[2024-06-25 04:32] LABS: BASOPHILS PERCENT AUTO 0.1 % (0.0-1.0); HEMOGLOBIN 9.5 gm/dl (12.0-16.0); IMMATURE GRAN ABSOLUTE AUTO 0.07 K/mm3 (0.00-0.05); IMMATURE GRAN PERCENT AUTO 0.7 % (0.0-0.4); LYMPHOCYTES ABSOLUTE AUTO 0.6 K/mm3 (1.0-4.8); LYMPHOCYTES PERCENT AUTO 6.1 % (24.0-44.0); MEAN CORPUSCULAR HEMOGLOBIN 29.4 pg (28.0-32.0); MEAN CORPUSCULAR HGB CONC 31.7 g/dl (32.0-36.0); MEAN CORPUSCULAR VOLUME 92.9 fl (83.0-99.0); MEAN PLATELET VOLUME 9.8 fl (9.4-12.3); MONOCYTES ABSOLUTE AUTO 0.3 K/mm3 (0.0-0.8); MONOCYTES PERCENT AUTO 2.6 % (0.0-8.0); NEUTROPHILS ABSOLUTE AUTO 9.4 K/mm3 (1.8-7.7); NEUTROPHILS PERCENT AUTO 90.5 % (41.0-71.0); PLATELET COUNT,PLT 227 K/mm3 (150-400); RED BLOOD CELL COUNT 3.23 M/mm3 (4.10-5.30); WHITE BLOOD CELL COUNT,WBC 10.43 K/mm3 (3.9-11.3)
[2024-06-25 04:58] LABS: A/G RATIO 0.6 (1-2); ALBUMIN 2.3 g/dl (3.4-5.0); ANION GAP 14.8 (5-15); BILIRUBIN TOTAL 0.3 mg/dL (0.2-1.0); BUN/CREATININE RATIO 41.7 (14-18); CALCIUM 9.1 mg/dL (8.5-10.1); CREATININE 1.2 mg/dL (0.55-1.02); EST CRCL DRUG DOSING (CG) 51.92 mL/min; POTASSIUM,K 5.8 mEq/L (3.5-5.1); PROTEIN TOTAL,TP 6.3 g/dl (6.4-8.2)
[2024-06-25 06:29] LABS: SLIDE REVIEW ABNORMAL SMEAR
[2024-06-25] MEDS: Insulin Regular, Human 100 Units/ML 10 ML Vial IV ONE ×2 (08:14→20:14)
[2024-06-25] MEDS: Pantoprazole 40 MG Tab.CR PO SCH (08:26)
[2024-06-25] MEDS: DULoxetine 30 MG Cap PO SCH (08:26)
[2024-06-25] MEDS: 50% Dextrose in Water 50 ML Syringe IVPUSH ONE ×2 (08:27→20:14)
[2024-06-25 10:03] LABS: FERRITIN 115 ng/ml (8-252); IRON,FE 49 ug/dL (50-170); PERCENT FE SATURATION 16 % (20-55); TRANSFERRIN 240 mg/dL (202-364)
[2024-06-25 10:06] LABS: TOTAL IRON BINDING CAPACITY 300 ug/dL (100-400)
[2024-06-26 05:29] LABS: A/G RATIO 0.6 (1-2); ALBUMIN 2.2 g/dl (3.4-5.0); ANION GAP 14.7 (5-15); BILIRUBIN TOTAL 0.2 mg/dL (0.2-1.0); BUN/CREATININE RATIO 42.7 (14-18); CALCIUM 8.7 mg/dL (8.5-10.1); CREATININE 1.1 mg/dL (0.55-1.02); EST CRCL DRUG DOSING (CG) 56.64 mL/min; POTASSIUM,K 4.7 mEq/L (3.5-5.1); PROTEIN TOTAL,TP 5.8 g/dl (6.4-8.2)
[2024-06-26 08:18] VITALS: BP 140/83; PULSE 83
[2024-06-27 20:42] LABS: INTACT PTH 38 pg/mL (15-65)
== END 2024-06-26 10:03 | disposition home or self-care (01) | DRG 683 ==
LOC: JD.ED 13:29 → JD.MS 17:35
PROVIDERS: ADMIT Family Medicine; ATTEND Family Medicine
DX: N17.9 Acute kidney failure, unspecified (principal); I13.0 Hypertensive heart and chronic kidney disease with heart failure and stage 1 through stage 4 chronic kidney disease, or unspecified chronic kidney disease; I50.22 Chronic systolic (congestive) heart failure; K86.1 Other chronic pancreatitis; T50.905A Adverse effect of unspecified drugs, medicaments and biological substances, initial encounter; E86.0 Dehydration; J44.9 Chronic obstructive pulmonary disease, unspecified; H54.7 Unspecified visual loss; J32.9 Chronic sinusitis, unspecified; E78.00 Pure hypercholesterolemia, unspecified; J45.909 Unspecified asthma, uncomplicated; K21.9 Gastro-esophageal reflux disease without esophagitis; K44.9 Diaphragmatic hernia without obstruction or gangrene; K27.9 Peptic ulcer, site unspecified, unspecified as acute or chronic, without hemorrhage or perforation; N20.0 Calculus of kidney; M19.90 Unspecified osteoarthritis, unspecified site; N18.30 Chronic kidney disease, stage 3 unspecified; G43.909 Migraine, unspecified, not intractable, without status migrainosus; F90.9 Attention-deficit hyperactivity disorder, unspecified type; E87.5 Hyperkalemia; F41.9 Anxiety disorder, unspecified; F32.A Depression, unspecified; D64.9 Anemia, unspecified; Z85.53 Personal history of malignant neoplasm of renal pelvis; Z86.16 Personal history of COVID-19; Z88.8 Allergy status to other drugs, medicaments and biological substances; Z79.899 Other long term (current) drug therapy; Z90.49 Acquired absence of other specified parts of digestive tract; Z98.890 Other specified postprocedural states
CPT/HCPCS: 36415; 71045; 71045-26; 736102650; 73610-50; 80048; 80053; 81001; 82550; 82728; 82945; 82947; 83540; 83615; 83735; 83970; 84100; 84132; 84157; 84466; 84550; 85025; 85652; 86140; 87070; 87075; 87205; 87428-QW; 89060; 93005; 94640; 94760; 94761; 96361; 96374; 97116-GP; 97162-GP; 97530-GP; 99284-25; 99285; A9270-GY; J0612; J1650; J1815-GY; J2765; J2919; J3490; J7030

== ENCOUNTER 2024-08-23 10:36 | Emergency (ER) | payer MEDICAID ==
[2024-08-23] MEDS: Ondansetron 4 MG/2 ML SDV IVPUSH ONE (11:19)
[2024-08-23] MEDS: Sodium Chloride 0.9% 10 ML Syringe FLUSH PRN (11:19)
[2024-08-23 11:26] LABS: BASOPHILS ABSOLUTE AUTO 0.1 K/mm3 (0.0-0.2); BASOPHILS PERCENT AUTO 1.3 % (0.0-1.0); EOSINOPHILS ABSOLUTE AUTO 0.3 K/mm3 (0.0-0.4); HEMATOCRIT 39.7 % (37.0-47.0); LYMPHOCYTES ABSOLUTE AUTO 1.6 K/mm3 (1.0-4.8); LYMPHOCYTES PERCENT AUTO 38.8 % (24.0-44.0); MEAN CORPUSCULAR HEMOGLOBIN 29.4 pg (28.0-32.0); MEAN CORPUSCULAR HGB CONC 31.7 g/dl (32.0-36.0); MEAN CORPUSCULAR VOLUME 92.8 fl (83.0-99.0); MEAN PLATELET VOLUME 10.2 fl (9.4-12.3); MONOCYTES ABSOLUTE AUTO 0.5 K/mm3 (0.0-0.8); NEUTROPHILS ABSOLUTE AUTO 1.6 K/mm3 (1.8-7.7); NEUTROPHILS PERCENT AUTO 40.9 % (41.0-71.0); PLATELET COUNT,PLT 204 K/mm3 (150-400); RED BLOOD CELL COUNT 4.28 M/mm3 (4.10-5.30); WHITE BLOOD CELL COUNT,WBC 3.99 K/mm3 (3.9-11.3)
[2024-08-23 11:31] LABS: HEMOGLOBIN 12.6 gm/dl (12.0-16.0)
[2024-08-23 11:40] LABS: APPEARANCE,URINE CLEAR (Clear); BILIRUBIN,URINE 1+ (Negative); COLOR,URINE YELLOW (Yellow); GLUCOSE,URINE NEGATIVE (Negative); KETONES,URINE NEGATIVE (Negative); LEUKOCYTE ESTERASE,URINE NEGATIVE (Negative); NITRITE,URINE NEGATIVE (Negative); OCCULT BLOOD,URINE NEGATIVE (Negative)
[2024-08-23 11:51] LABS: A/G RATIO 0.9 (1-2); ALBUMIN 3.1 g/dl (3.4-5.0); ANION GAP 15.6 (5-15); BILIRUBIN TOTAL 0.6 mg/dL (0.2-1.0); BUN/CREATININE RATIO 15.6 (14-18); CALCIUM 8.5 mg/dL (8.5-10.1); CREATININE 1.6 mg/dL (0.55-1.02); EST CRCL DRUG DOSING (CG) 38.94 mL/min; MAGNESIUM 1.7 mg/dL (1.8-2.4); POTASSIUM,K 4.6 mEq/L (3.5-5.1); PROTEIN TOTAL,TP 6.4 g/dl (6.4-8.2)
[2024-08-23 11:55] LABS: PROTEIN,URINE TRACE (Negative)
[2024-08-23 11:56] LABS: BACTERIA,URINE FEW /hpf (FEW); RBC,URINE 0-5 /hpf (0-5); WBC,URINE 0-5 /hpf (0-5)
[2024-08-23 11:57] LABS: MUCUS,URINE FEW /hpf (FEW)
[2024-08-23 12:49] VITALS: BP 116/98; PULSE 90
== END 2024-08-23 12:47 | disposition home or self-care (01) ==
LOC: JD.ED 10:36
DX: M54.50 Low back pain, unspecified (principal); I11.0 Hypertensive heart disease with heart failure; I50.9 Heart failure, unspecified; J44.89 Other specified chronic obstructive pulmonary disease; K21.9 Gastro-esophageal reflux disease without esophagitis; M19.90 Unspecified osteoarthritis, unspecified site; F17.200 Nicotine dependence, unspecified, uncomplicated; Z86.16 Personal history of COVID-19; Z90.49 Acquired absence of other specified parts of digestive tract; Z98.84 Bariatric surgery status; Z88.5 Allergy status to narcotic agent; Z88.8 Allergy status to other drugs, medicaments and biological substances; Z79.51 Long term (current) use of inhaled steroids; Z79.82 Long term (current) use of aspirin; Z79.899 Other long term (current) drug therapy
CPT/HCPCS: 36415; 71046; 80053; 81001; 83735; 83880; 84484; 85025; 93005; 96374; 99285; J2405

== ENCOUNTER 2024-09-11 06:54 | Emergency (ER) | payer MEDICAID, OTHER ==
[2024-09-11] MEDS: Sodium Chloride 0.9% 10 ML Syringe FLUSH PRN (07:20)
[2024-09-11] MEDS: methylPREDNISolone Sodium Succinate 125 MG/2 ML SDV IVPUSH ONE (07:20)
[2024-09-11 07:23] VITALS: PULSE 90
[2024-09-11 07:38] LABS: BASOPHILS PERCENT AUTO 0.9 % (0.0-1.0); EOSINOPHILS ABSOLUTE AUTO 0.3 K/mm3 (0.0-0.4); EOSINOPHILS PERCENT AUTO 5.5 % (0.0-6.0); HEMATOCRIT 35.6 % (37.0-47.0); IMMATURE GRAN ABSOLUTE AUTO 0.01 K/mm3 (0.00-0.05); IMMATURE GRAN PERCENT AUTO 0.2 % (0.0-0.4); LYMPHOCYTES ABSOLUTE AUTO 1.9 K/mm3 (1.0-4.8); LYMPHOCYTES PERCENT AUTO 41.4 % (24.0-44.0); MEAN CORPUSCULAR HEMOGLOBIN 30.1 pg (28.0-32.0); MEAN CORPUSCULAR HGB CONC 31.2 g/dl (32.0-36.0); MEAN PLATELET VOLUME 9.8 fl (9.4-12.3); MONOCYTES ABSOLUTE AUTO 0.3 K/mm3 (0.0-0.8); MONOCYTES PERCENT AUTO 7.5 % (0.0-8.0); NEUTROPHILS PERCENT AUTO 44.5 % (41.0-71.0); PLATELET COUNT,PLT 182 K/mm3 (150-400); RED BLOOD CELL COUNT 3.69 M/mm3 (4.10-5.30); WHITE BLOOD CELL COUNT,WBC 4.52 K/mm3 (3.9-11.3)
[2024-09-11 07:40] LABS: HEMOGLOBIN 11.1 gm/dl (12.0-16.0); MEAN CORPUSCULAR VOLUME 96.5 fl (83.0-99.0)
[2024-09-11] MEDS: Ondansetron 4 MG/2 ML SDV IVPUSH ONE (07:45)
[2024-09-11 08:04] LABS: A/G RATIO 0.9 (1-2); ALBUMIN 2.8 g/dl (3.4-5.0); ANION GAP 13.7 (5-15); BILIRUBIN TOTAL 0.2 mg/dL (0.2-1.0); BUN/CREATININE RATIO 21.8 (14-18); CREATININE 1.1 mg/dL (0.55-1.02); EST CRCL DRUG DOSING (CG) 56.64 mL/min; MAGNESIUM 1.9 mg/dL (1.8-2.4); POTASSIUM,K 4.7 mEq/L (3.5-5.1); PROTEIN TOTAL,TP 5.9 g/dl (6.4-8.2)
[2024-09-11 09:23] VITALS: BP 150/112
== END 2024-09-11 09:20 | disposition home or self-care (01) ==
LOC: JD.ED 06:54
DX: J44.1 Chronic obstructive pulmonary disease with (acute) exacerbation (principal); I11.0 Hypertensive heart disease with heart failure; I50.9 Heart failure, unspecified; E78.00 Pure hypercholesterolemia, unspecified; Z86.16 Personal history of COVID-19; Z88.5 Allergy status to narcotic agent; Z88.8 Allergy status to other drugs, medicaments and biological substances; Z79.82 Long term (current) use of aspirin; Z79.51 Long term (current) use of inhaled steroids; Z79.899 Other long term (current) drug therapy
CPT/HCPCS: 36415; 71045; 80053; 83735; 83880; 84484; 85025; 93005; 96374; 96375; 99285; J2405; J2919

== ENCOUNTER 2024-12-22 21:28 | Emergency (ER) | payer MEDICAID ==
[2024-12-22 22:55] VITALS: BP 129/71; PULSE 74
== END 2024-12-22 22:54 | disposition home or self-care (01) ==
LOC: JD.ED 21:28
DX: M25.511 Pain in right shoulder (principal); I11.0 Hypertensive heart disease with heart failure; I50.9 Heart failure, unspecified; E78.00 Pure hypercholesterolemia, unspecified; J44.9 Chronic obstructive pulmonary disease, unspecified; F17.210 Nicotine dependence, cigarettes, uncomplicated; K21.9 Gastro-esophageal reflux disease without esophagitis; Z86.16 Personal history of COVID-19; Z88.5 Allergy status to narcotic agent; Z88.8 Allergy status to other drugs, medicaments and biological substances; Z79.899 Other long term (current) drug therapy; Z79.84 Long term (current) use of oral hypoglycemic drugs; X50.0XXA Overexertion from strenuous movement or load, initial encounter; Y93.89 Activity, other specified
CPT/HCPCS: 73030-26-RT; 73030-RT; 99283

== ENCOUNTER 2025-01-28 20:59 | Emergency (ER) | payer MEDICAID ==
[2025-01-28 21:20] VITALS: BP 152/104; PULSE 81
[2025-01-28] MEDS ORDERED: Sodium Chloride 0.9% 10 ML Syringe FLUSH PRN (21:21)
[2025-01-28 21:37] LABS: BASOPHILS ABSOLUTE AUTO 0.0 K/mm3 (0.0-0.2); BASOPHILS PERCENT AUTO 0.7 % (0.0-1.0); EOSINOPHILS ABSOLUTE AUTO 0.1 K/mm3 (0.0-0.4); EOSINOPHILS PERCENT AUTO 2.1 % (0.0-6.0); IMMATURE GRAN ABSOLUTE AUTO 0.05 K/mm3 (0.00-0.05); IMMATURE GRAN PERCENT AUTO 0.9 % (0.0-0.4); LYMPHOCYTES ABSOLUTE AUTO 1.5 K/mm3 (1.0-4.8); LYMPHOCYTES PERCENT AUTO 28.4 % (24.0-44.0); MEAN PLATELET VOLUME 9.2 fl (9.4-12.3); MONOCYTES ABSOLUTE AUTO 0.6 K/mm3 (0.0-0.8); MONOCYTES PERCENT AUTO 10.8 % (0.0-8.0); NEUTROPHILS ABSOLUTE AUTO 3.1 K/mm3 (1.8-7.7); NEUTROPHILS PERCENT AUTO 57.1 % (41.0-71.0); NRBC ABSOLUTE 0.00 (0.00-0.02); NRBC PERCENT 0.0 % (0.0-0.2); PLATELET COUNT,PLT 210 K/mm3 (150-400); RED BLOOD CELL COUNT 3.55 M/mm3 (4.10-5.30); WHITE BLOOD CELL COUNT,WBC 5.36 K/mm3 (3.9-11.3)
[2025-01-28 22:02] LABS: BLOOD UREA NITROGEN,BUN 29.0 mg/dL (7-18); CARBON DIOXIDE,CO2 28.0 mEq/L (21-32); CHLORIDE,CL 107.0 mEq/L (98-107); CREATININE 1.2 mg/dL (0.55-1.02); GLUCOSE RANDOM 116.0 mg/dL (70-99); POTASSIUM,K 5.0 mEq/L (3.5-5.1); SODIUM,NA 139.0 mEq/L (136-145)
[2025-01-28 22:03] LABS: A/G RATIO 0.8 (1-2); ALANINE AMINOTRANSFERASE,ALT 22.0 U/L (14-59); ASPARTATE AMNIOTRANSFERASE,AST 20.0 U/L (15-37); BILIRUBIN TOTAL 0.2 mg/dL (0.2-1.0); EST CRCL DRUG DOSING (CG) 51.34 mL/min; ESTIMATED GFR 54.0 mL/min (>60); PROTEIN TOTAL,TP 6.0 g/dl (6.4-8.2)
[2025-01-28 22:05] LABS: ETHANOL BLOOD MEDICAL 0.0 gm% (0.00)
[2025-01-28] MEDS: Ondansetron 4 MG/2 ML SDV IVPUSH ONE (22:06)
[2025-01-28] MEDS: Iopamidol 612 MG/ML 100 ML Bottle IVPUSH ONE (22:30)
[2025-01-28] MEDS: Alum Hydrox/Mag Hydrox/Simeth 30 ML, Lidocaine 2% 15 ML PO ONE (22:42)
== END 2025-01-29 00:05 | disposition home or self-care (01) ==
LOC: JD.ED 20:59
DX: K29.20 Alcoholic gastritis without bleeding (principal); I13.0 Hypertensive heart and chronic kidney disease with heart failure and stage 1 through stage 4 chronic kidney disease, or unspecified chronic kidney disease; I50.9 Heart failure, unspecified; J44.89 Other specified chronic obstructive pulmonary disease; K21.9 Gastro-esophageal reflux disease without esophagitis; N18.9 Chronic kidney disease, unspecified; M19.90 Unspecified osteoarthritis, unspecified site; Z79.899 Other long term (current) drug therapy; Z88.5 Allergy status to narcotic agent; Z88.8 Allergy status to other drugs, medicaments and biological substances; Z90.49 Acquired absence of other specified parts of digestive tract; Z90.710 Acquired absence of both cervix and uterus
CPT/HCPCS: 36415; 74177; 80053; 80307; 83690; 84484; 85025; 86140; 96361; 96374; 96375; 99284; J1308; J2405; J3490; J7030; Q9967; A9270-GY; J1171